=== PATIENT | male | born 1940 | race Caucasian/White ===

== ENCOUNTER 2017-09-23 10:18 | Outpatient (CLI) | payer MEDICARE, OTHER ==
--- NOTE | 2017-09-23 16:54 | Ultrasound Report ---
EXAM: NECK ULTRASOUND EXAM DATE: 09/23/2017 10:37 AM. CLINICAL HISTORY: Left cheek and left pre-and post-auricular neck swelling and pain. COMPARISON: None. TECHNIQUE: Real-time sonographic imaging was performed by the day spa manager utilizing color-flow. Multi ple apparel trimmings sales representative static images were saved for review. FINDINGS: Targeted evaluation of the areas of concern reveals no underlying sonographic abnormality. Specifically, no mass, focal fluid collection, or adenopathy. The left submandibular gland is in the imaged region, appears normal, and measures 2.9 x 0.8 x 2.6 cm. Comparison images of the right submandibular and postauricular regions are also unremarkable. IMPRESSION: No sonographic abnormality detected in the areas of indicating concern. [facility] Referring Provider Line: [phone] SITE ID: [id number]
== END 2017-09-23 10:19 | disposition home or self-care (01) ==
LOC: DI 10:18
PROVIDERS: ATTEND Physician Assistant Medical
DX: M54.2 Cervicalgia (principal); R60.0 Localized edema
CPT/HCPCS: 76536

== ENCOUNTER 2017-10-04 10:53 | Outpatient (CLI) | payer MEDICARE, OTHER ==
[2017-10-04 11:14] LABS: CREATININE 0.8 mg/dL (0.6-1.2)
[2017-10-04 11:17] LABS: BASOPHILS # (AUTO) 0.1 10^3/uL (0.0-0.1); BASOPHILS % (AUTO) 0.9 %; EOSINOPHILS # (AUTO) 0.2 10^3/uL (0.0-0.7); EOSINOPHILS % (AUTO) 2.1 %; HGB - HEMOGLOBIN 14.5 g/dL (14.0-18.0); LYMPHOCYTES # (AUTO) 1.7 10^3/uL (1.5-3.5); LYMPHOCYTES % (AUTO) 19.4 %; MEAN CORPUSCULAR HEMOGLOBIN 30.4 pg (27.0-31.0); MEAN CORPUSCULAR HGB CONC 33.6 g/dL (32.0-36.0); MEAN CORPUSCULAR VOLUME 90.6 fL (80.0-94.0); MEAN PLATELET VOLUME 7.7 fL (7.4-11.4); MONOCYTES # (AUTO) 0.5 10^3/uL (0.0-1.0); MONOCYTES % (AUTO) 5.9 %; NEUTROPHILS # (AUTO) 6.1 10^3/uL (1.5-6.6); NEUTROPHILS % (AUTO) 71.7 %; PLT - PLATELET COUNT 268 10^3/uL (130-450); RED BLOOD COUNT 4.77 10^6/uL (4.70-6.10); RED CELL DISTRIBUTION WIDTH 12.6 % (12.0-15.0); WHITE BLOOD COUNT 8.5 x10^3/uL (4.8-10.8)
[2017-10-04] MEDS ORDERED: IOPAMIDOL-300 100 ML VIAL ONE (11:19)
[2017-10-04] MEDS ORDERED: IOPAMIDOL-300 100 ML VIAL IVP ONE (12:03)
--- NOTE | 2017-10-04 12:29 | CT Report ---
CT FACIAL BONES WITH CONTRAST: 10/04/2017 CLINICAL INDICATION: Left jaw pain, history of dental abscess with recent root canal, history of squamous cell carcinoma. TECHNIQUE: Axial CT images of the face were obtained with 100 mL Isovue [address] is available for comparison. FINDINGS: The visualized orbital contents are unremarkable. There is minimal mucosal thickening in the left side of the sphenoid sinus. No air fluid levels are present. There is no evidence of abscess or adenopathy. No definite osteolysis is seen to suggest osteomyelitis, but dental hardware does produce some streak artifact. The nasopharynx, oropharynx, and hypopharynx appear unremarkable. IMPRESSION: NO EVIDENCE OF ABSCESS OR OSTEOMYELITIS. NO ADENOPATHY. In accordance with CT protocol optimization, one or more of the following dose reduction techniques were utilized for this exam: automated exposure control, adjustment of mA and/or KV based on patient size, or use of iterative reconstructive technique. TD: 10/04/2017 12:27
--- NOTE | 2017-10-04 12:32 | CT Report ---
CT OF NECK WITH CONTRAST: 10/04/2017 CLINICAL INDICATION: Left-sided pain, history of recent dental surgery with root canal, history of squamous cell carcinoma. TECHNIQUE: Axial CT images of the neck were obtained with 100 mL Isovue [address] is available for comparison. FINDINGS: The vascular structures enhance normally. The salivary glands and thyroid gland appear unremarkable. No cervical adenopathy is seen. No abscess is identified. The trachea is widely patent. Limited evaluation of the lung apices is unremarkable. Osseous structures demonstrate degenerative changes. IMPRESSION: NO EVIDENCE OF ABSCESS OR ADENOPATHY. In accordance with CT protocol optimization, one or more of the following dose reduction techniques were utilized for this exam: automated exposure control, adjustment of mA and/or KV based on patient size, or use of iterative reconstructive technique. TD: 10/04/2017 12:30
== END 2017-10-04 10:54 | disposition home or self-care (01) ==
LOC: DI 10:53
PROVIDERS: ATTEND Family Medicine
DX: R68.84 Jaw pain (principal); Z85.828 Personal history of other malignant neoplasm of skin; K04.7 Periapical abscess without sinus
CPT/HCPCS: 36415; 70487; 70491; 80048; 85025; Q9967

== ENCOUNTER 2017-11-30 09:09 | Outpatient (CLI) | payer MEDICARE, OTHER ==
--- NOTE | 2017-11-30 13:10 | XRAY Report ---
THREE VIEW RIGHT FOOT: 11/30/2017 CLINICAL INDICATION: Pain. FINDINGS: AP, lateral, oblique views of the right foot demonstrate no evidence of fracture or dislocation. Mild degenerative changes are seen at the first metatarsophalangeal joint. No radiopaque foreign body is seen in the soft tissues. IMPRESSION: MILD OSTEOARTHRITIS. TD: 11/30/2017 13:09
== END 2017-11-30 09:10 | disposition home or self-care (01) ==
LOC: DI 09:09
PROVIDERS: ATTEND Podiatrist
DX: M19.071 Primary osteoarthritis, right ankle and foot (principal)

== ENCOUNTER 2018-05-19 01:25 | Emergency (ER) | payer MEDICARE, OTHER ==
--- NOTE | 2018-05-19 01:43 | ED Physician Documentation ---
PD HPI CHEST PAIN - Stated complaint Stated Complaint: CHEST PAIN - Chief complaint Chief Complaint: Cardiac - History obtained from History obtained from: Patient - History of Present Illness Timing - onset: How many weeks ago (1) Timing - onset during: Rest, Light activity Timing - duration: Weeks (1) Timing - details: Gradual onset Pain level max: 4 Pain level now: 3 Quality: Pressure, Tightness Location: Substernal Radiation: Other (Nonradiating) Improved by: Nothing Worsened by: Exertion (Patient states that he feels short of breath after walk ing approximately 30 feet) Associated symptoms: Shortness of air. No: Diaphoresis, Nausea, Vomiting, Feeling faint / dizzy, General Weakness - Additional information Additional information: states had a cardiac stent many years ago Review of Systems Ten Systems: 10 systems reviewed and negative Constitutional: denies: Fever, Chills Ears: denies: Ear pain Nose: denies: Rhinorrhea / runny nose, Congestion Throat: denies: Sore throat Cardiac: reports: Chest pain / pressure. denies: Palpitations, Pedal edema, Calf pain GI: denies: Abdominal Pain, Nausea, Vomiting, Diarrhea : denies: Dysuria Skin: denies: Rash Musculoskeletal: denies: Neck pain, Back pain Neurologic: denies: Focal weakness, Numbness, Headache PD PAST MEDICAL HISTORY - Past Medical History Past Medical History: Yes Cardiovascular: [place] Respiratory: None Endocrine/Autoimmune: None GI: GERD, Diverticulitis : None HEENT: None Psych: None Musculoskeletal: Osteoarthritis Derm: None - Past Surgical History Past Surgical History: Yes General: Cholecystectomy, Bowel surgery Cardiovascular: Coronary stent - Present Medications Home Medications: Ambulatory Orders Medication Instructions Recorded Confirmed Aspirin Chewable [[place] 324 mg PO ONCE 11/23/13 11/23/13 Aspirin] Clopidogrel [Plavix] 75 mg PO DAILY 11/23/13 11/23/13 Metoprolol Tartrate [Lopressor] 25 mg PO BID 11/23/13 11/23/13 Pantoprazole Sodium [Protonix] 40 mg PO 11/23/13 11/23/13 Pentazocine Lactate [Talwin] 50 mg PO 11/23/13 11/23/13 - Allergies Allergies/Adverse Reactions: Allergies Allergy/AdvReac Type Severity Reaction Status Date / Time amoxicillin trihydrate * Allergy Nausea Verified 05/19/18 01:43 [From Augmentin] potassium clavulanate * Allergy Nausea Verified 05/19/18 01:43 [From Augmentin] - Social History Does the pt smoke?: Yes Smoking Status: Current every day smoker Does the pt drink ETOH?: Yes Does the pt have substance abuse?: No - Immunizations Immunizations are current?: No Immunizations: TDAP >10years/unknown - POLST Patient has POLST: No PD ED PE NORMAL - Vitals Vital signs reviewed: Yes - General General: Alert and oriented X 3, No acute distress, Well developed/nourished - HEENT HEENT: PERRL, Moist mucous membranes - Neck Neck: Supple, no meningeal sign - Cardiac Cardiac: RRR, Strong equal pulses - Respiratory Respiratory: No respiratory distress, Clear bilaterally - Abdomen Abdomen: Soft, Non tender, Non distended - Back Back: No spinal TTP - Derm Derm: Warm and dry - Extremities Extremities: No edema, No calf tenderness / cord - Neuro Neuro: Alert and oriented X 3 - Psych Psych: Normal mood, Normal affect Results - Vitals Vitals: Vital Signs - 24 hr 05/19/18 05/19/18 05/19/18 01:25 01:41 02:23 Temperature 36.1 C L Heart Rate 116 H 110 H 114 H Respiratory 13 14 14 Rate Blood Pressure 165/90 H 159/98 H 120/98 H O2 Saturation 98 97 93 05/19/18 05/19/18 05/19/18 02:27 03:14 03:43 Temperature 36.0 C L Heart Rate 113 H 98 90 Respiratory 13 12 12 Rate Blood Pressure 95/66 110/77 115/75 O2 Saturation 95 97 97 05/19/18 05/19/18 04:53 05:30 Temperature Heart Rate 86 86 Respiratory 14 12 Rate Blood Pressure 163/83 H O2 Saturation 99 98 Oxygen O2 Source Room air Oxygen Flow Rate 2 - EKG (time done) 0127 Rate: Rate (enter#) (112) Rhythm: Sinus tachycardia [place]: Normal Intervals: Normal [place] QRS: Normal Ischemia: Normal ST segments, Q waves (II, III, aVF) - Labs Labs: Laboratory Tests 05/19/18 05/19/18 05/19/18 01:35 01:35 01:35 WBC 5.8 RBC 4.57 L Hgb 14.4 Hct 41.6 L MCV 91.0 MCH 31.4 H MCHC 34.5 RDW 12.5 Plt Count 230 MPV 8.5 Neut # (Auto) 4.0 Lymph # (Auto) 1.1 L [place] # (Auto) 0.5 Eos # (Auto) 0.1 Baso # (Auto) 0.1 Absolute Nucleated RBC 0.00 Nucleated RBC % 0.0 Sodium 127 L Potassium 3.6 Chloride 90 L Carbon Dioxide 22 Anion Gap 15.0 H BUN 15 Creatinine 0.8 Estimated GFR (MDRD) 94 Glucose 295 H Calcium 8.4 L Total Bilirubin 6.3 H AST 61 H ALT 71 H Alkaline Phosphatase 194 H Troponin I < 0.04 B-Natriuretic Peptide Total Protein 7.3 Albumin 3.4 Globulin 3.9 Albumin/Globulin Ratio 0.9 L Lipase 17 L 05/19/18 05/19/18 01:35 04:54 WBC RBC Hgb Hct MCV MCH MCHC RDW Plt Count MPV Neut # (Auto) Lymph # (Auto) [place] # (Auto) Eos # (Auto) Baso # (Auto) Absolute Nucleated RBC Nucleated RBC % Sodium Potassium Chloride Carbon Dioxide Anion Gap BUN Creatinine Estimated GFR (MDRD) Glucose Calcium Total Bilirubin AST ALT Alkaline Phosphatase Troponin I < 0.04 B-Natriuretic Peptide 35 Total Protein Albumin Globulin Albumin/Globulin Ratio Lipase - Rads (name of study) cxr Radiology: Prelim report reviewed, EMP read contemporaneously, See rad report (No acute abnormality seen in the chest.) CT abd/pelvis Radiology: Prelim report reviewed, EMP read contemporaneously, See rad report (Postoperative changes of cholecystectomy. Small periumbilical hernia, containing fat. Diverticulosis, without CT evidence of diverticulitis. ) PD MEDICAL DECISION MAKING - ED course Complexity details: reviewed results, re-evaluated patient, considered differential, d/w patient ED course: Patient is a 78-year-old male who presents to the emergency department with atypical chest pain over the past week. Possible stable angina. Is not occurring at rest. Although he does state at times is been fairly consistent over the past week. Negative troponin x2. No acute EKG findings. Recommend that he follow-up closely with his doctor for a cardiac stress test and avoid any strenuous activity until that time. No evidence of pulmonary embolus clinically. No evidence of heart failure. No pulmonary edema. He also has chronic hyponatremia and has a slight elevation in his liver function tests as well as his bilirubin. IV fluids were given. We will have him follow-up with his doctor for further evaluation. Patient does state that he stopped drinking alcohol 2 years ago. Patient counseled regarding signs and symptoms for which I believe and urgent re-evaluation would be necessary. Patient with good understanding of and agreement to plan and is comfortable going home at this time This document was made in part using voice recognition software. While efforts are made to proofread this document, sound alike and grammatical errors may occur. - Sepsis Event Vital Signs: Vital Signs - 24 hr 05/19/18 05/19/18 05/19/18 01:25 01:41 02:23 Temperature 36.1 C L Heart Rate 116 H 110 H 114 H Respiratory 13 14 14 Rate Blood Pressure 165/90 H 159/98 H 120/98 H O2 Saturation 98 97 93 05/19/18 05/19/18 05/19/18 02:27 03:14 03:43 Temperature 36.0 C L Heart Rate 113 H 98 90 Respiratory 13 12 12 Rate Blood Pressure 95/66 110/77 115/75 O2 Saturation 95 97 97 05/19/18 05/19/18 04:53 05:30 Temperature Heart Rate 86 86 Respiratory 14 12 Rate Blood Pressure 163/83 H O2 Saturation 99 98 Oxygen O2 Source Room air Oxygen Flow Rate 2 Departure - Departure Disposition: 01 Home, Self Care Clinical Impression: Chest pain Qualifiers: Chest pain type: unspecified Qualified Code(s): R07.9 - Chest pain, unspecified Condition: Good Instructions: ED Chest Pain Atypical Unkn Cause Follow-Up: Enmanuel Ventura DO [Provider Admit Priv/Credential] - Within 3 Days Comments: The cause of your symptoms is unclear today, but I do think that you need a cardiac stress test. We discussed staying in the hospital for this, but you are comfortable going home at this time and following up closely on Monday or Monday to have this scheduled urgently with your doctor. You are to avoid any strenuous activity until that time. Return if your symptoms worsen. Make sure to continue your current medications. You also have a slight elevation of your bilirubin and liver function tests, these should be repeated with your doctor next week to ensure that they are improving. Your sodium levels are also slightly low which is chronic for you but they are slightly lower than usual today. Please follow-up with your doctor for further care.
[2018-05-19 01:51] LABS: BASOPHILS # (AUTO) 0.1 10^3/uL (0.0-0.1); BASOPHILS % (AUTO) 1.5 %; EOSINOPHILS # (AUTO) 0.1 10^3/uL (0.0-0.7); EOSINOPHILS % (AUTO) 1.4 %; HGB - HEMOGLOBIN 14.4 g/dL (14.0-18.0); LYMPHOCYTES # (AUTO) 1.1 10^3/uL (1.5-3.5); LYMPHOCYTES % (AUTO) 19.4 %; MEAN CORPUSCULAR HEMOGLOBIN 31.4 pg (27.0-31.0); MEAN CORPUSCULAR HGB CONC 34.5 g/dL (32.0-36.0); MEAN PLATELET VOLUME 8.5 fL (7.4-11.4); MONOCYTES # (AUTO) 0.5 10^3/uL (0.0-1.0); MONOCYTES % (AUTO) 8.9 %; NEUTROPHILS % (AUTO) 68.8 %; PLT - PLATELET COUNT 230 10^3/uL (130-450); RED BLOOD COUNT 4.57 10^6/uL (4.70-6.10); RED CELL DISTRIBUTION WIDTH 12.5 % (12.0-15.0); WHITE BLOOD COUNT 5.8 x10^3/uL (4.8-10.8)
[2018-05-19 02:10] LABS: ALBUMIN 3.4 g/dL (3.2-5.5); ALBUMIN/GLOBULIN RATIO 0.9 (1.0-2.2); BILIRUBIN,TOTAL 6.3 mg/dL (0.2-1.0); CALCIUM 8.4 mg/dL (8.5-10.3); CREATININE 0.8 mg/dL (0.6-1.2); TOTAL PROTEIN 7.3 g/dL (6.7-8.2)
[2018-05-19] MEDS ORDERED: ASPIRIN CHEW 81 MG TABLET PO STA (02:11)
[2018-05-19] MEDS ORDERED: NITROGLYCERIN SL 0.4 MG TABLET SL STA (02:11)
--- NOTE | 2018-05-19 02:11 | XRAY Report ---
Reason: chest pain Procedure Date: 05/19/2018 Accession Number: [id number] / [id number] Procedure: XR - Chest 1 View X-Ray CPT Code: 40958 FULL RESULT: EXAM: CHEST RADIOGRAPHY EXAM DATE: 05/19/2018 01:46 AM. CLINICAL HISTORY: Chest pain. COMPARISON: 11/23/2013 12:17 PM. TECHNIQUE: 1 view. FINDINGS: Lungs/Pleura: No alveolar consolidation or pleural effusion seen. No pneumothorax. Mediastinum: Within exam limitations, the cardiomediastinal contour is normal. Other: Degenerative changes in the shoulders, right worse than left. IMPRESSION: 1. No acute abnormality seen in the chest. [facility]
[2018-05-19] MEDS ORDERED: SODIUM CHLORIDE 0.9% 1,000 ML IV ONE ×2 (02:59)
[2018-05-19] MEDS ORDERED: IOPAMIDOL-300 100 ML VIAL ONE (04:12)
[2018-05-19] MEDS ORDERED: IOPAMIDOL-300 100 ML VIAL IVP ONE (05:14)
--- NOTE | 2018-05-19 05:31 | CT Report ---
Reason: epigastric, RUQ abd pain Procedure Date: 05/19/2018 Accession Number: [id number] / [id number] Procedure: CT - Abdomen/Pelvis W/ CPT Code: FULL RESULT: EXAM: CT ABDOMEN AND PELVIS EXAM DATE: 05/19/2018 05:09 AM. CLINICAL HISTORY: Epigastric, RUQ abd pain. COMPARISONS: None. TECHNIQUE: Routine helical CT imaging was performed through the abdomen and pelvis. IV contrast: 100 ML ISOVUE 300. Enteric contrast: No. Reconstructions: Coronal and sagittal. In accordance with CT protocol optimization, one or more of the following dose reduction techniques were utilized for this exam: automated exposure control, adjustment of mA and/or KV based on patient size, or use of iterative reconstructive technique. FINDINGS: Lung Bases: Unremarkable. Liver: Normal. No masses. Gallbladder/Bile Ducts: Changes of cholecystectomy. No biliary dilatation. Spleen: Normal. Pancreas: Normal. Adrenal Glands: Normal. Kidneys: Cortical cysts. No hydronephrosis or nephrolithiasis. Peritoneal Cavity/Bowel: Normal. No free fluid, free air or adenopathy. No masses or acute inflammatory process. Colonic diverticulosis, without CT evidence of diverticulitis. Pelvic Organs: Normal. The bladder and visualized pelvic organs are within normal limits. Vasculature: No aneurysms or other significant abnormality. Bones: No significant abnormality. Other: Small periumbilical hernia, containing fat, without evidence of bowel herniation. IMPRESSION: Postoperative changes of cholecystectomy. Small periumbilical hernia, containing fat. Diverticulosis, without CT evidence of diverticulitis. [facility]
[2018-05-19 05:55] VITALS: BP 144/87
== END 2018-05-19 05:56 | disposition home or self-care (01) ==
LOC: ED 01:25
DX: R07.9 Chest pain, unspecified (principal); I25.2 Old myocardial infarction; R00.0 Tachycardia, unspecified; E87.1 Hypo-osmolality and hyponatremia; F17.200 Nicotine dependence, unspecified, uncomplicated; Z95.5 Presence of coronary angioplasty implant and graft; Z79.82 Long term (current) use of aspirin
CPT/HCPCS: 36415; 71045; 74177; 80053; 83690; 83880; 84484; 85025; 93005; 96360; 96361; 99284; 99285; A9270; Q9967

== ENCOUNTER 2018-06-03 15:53 | Outpatient (CLI) | payer MEDICARE, OTHER | END 2018-06-03 15:54 | disposition critical access hospital (66) | LOC: EMS 15:53 | PROVIDERS: ATTEND Surgery | DX: R53.1 Weakness (principal); R10.30 Lower abdominal pain, unspecified; R39.9 Unspecified symptoms and signs involving the genitourinary system | CPT/HCPCS: A0425; A0429 ==

== ENCOUNTER 2018-06-03 15:57 | Observation (INO) | payer MEDICARE, OTHER ==
[2018-06-03] MEDS ORDERED: SODIUM CHLORIDE 0.9% 1,000 ML IV ONE ×3 (16:14→20:26)
--- NOTE | 2018-06-03 16:17 | ED Physician Documentation ---
History of Present Illness - Stated complaint Stated Complaint: ABD PX - Chief complaint Chief Complaint: General - Additonal information Additional information: hx from pt 78 male hx BPH seen about 2 weeks ago and dx ACS referred to PMD for stress test etc pt states followed up PMD and dx urinary problems and DM and started on flomax and metformin which he has taken today he had 6 hr of severe lower abd pain and then was too weak to get up from his chair no fall or injury denies AH CP AP upon arrival rigors at home no fever no cough soa no NVD no bloody black BM cant remember when if he last urinated but thinks maybe today arrives hypotensive note pt is documented as having chrionic kidney dz but chart review shows he has never had a creat > 1 at [facility] Review of Systems Constitutional: reports: Chills, Fatigue. denies: Fever Throat: denies: Sore throat Cardiac: denies: Chest pain / pressure Respiratory: denies: Dyspnea GI: denies: Abdominal Pain, Nausea, Vomiting : reports: Other (diif urinating) Musculoskeletal: denies: Back pain Neurologic: reports: Generalized weakness Endocrine: denies: Easy bruising / bleeding Immunocompromised: denies: Immunocompromised PD PAST MEDICAL HISTORY - Past Medical History Cardiovascular: [place] Respiratory: None Endocrine/Autoimmune: None GI: GERD, Diverticulitis : None HEENT: None Psych: None Musculoskeletal: Osteoarthritis Derm: None - Past Surgical History Past Surgical History: Yes General: Cholecystectomy, Bowel surgery Cardiovascular: Coronary stent - Present Medications Home Medications: Ambulatory Orders Medication Instructions Recorded Confirmed Aspirin Chewable [[place] 324 mg PO ONCE 11/23/13 11/23/13 Aspirin] Clopidogrel [Plavix] 75 mg PO DAILY 11/23/13 11/23/13 Metoprolol Tartrate [Lopressor] 25 mg PO BID 11/23/13 11/23/13 Pantoprazole Sodium [Protonix] 40 mg PO 11/23/13 11/23/13 Pentazocine Lactate [Talwin] 50 mg PO 11/23/13 11/23/13 - Allergies Allergies/Adverse Reactions: Allergies Allergy/AdvReac Type Severity Reaction Status Date / Time amoxicillin trihydrate * Allergy Nausea Verified 05/19/18 01:43 [From Augmentin] potassium clavulanate * Allergy Nausea Verified 05/19/18 01:43 [From Augmentin] - Social History Does the pt smoke?: Yes Smoking Status: Current every day smoker Does the pt drink ETOH?: Yes Does the pt have substance abuse?: No - Immunizations Immunizations are current?: No Immunizations: TDAP >10years/unknown - POLST Patient has POLST: No PD ED PE NORMAL - Vitals Vital signs reviewed: Yes - General General: Alert and oriented X 3 - HEENT HEENT: PERRL - Neck Neck: Supple, no meningeal sign - Cardiac Cardiac: RRR - Respiratory Respiratory: No respiratory distress, Clear bilaterally - Abdomen Abdomen: Soft, Non tender, Other (no pulsatile mass reducible umbilical hernia, no inguinl hernia) - Derm Derm: Other (, small scabs to shoulder yahir - long standing perptm cause unknown denies IVDA) - Neuro Neuro: Alert and oriented X 3 Eye Opening: Spontaneous Motor: Obeys Commands Verbal: Oriented GCS Score: 15 Results - Vitals Vitals: Vital Signs - 24 hr 06/03/18 16:00 Temperature 37.6 C H Heart Rate 117 H Respiratory 18 Rate Blood Pressure 90/62 O2 Saturation 92 Oxygen O2 Source Room air - EKG (time done) 1610 Rate: Rate (enter#) (110) Rhythm: Sinus tachycardia Ischemia: Q waves (inferior), Other (poor R wave compression, barely visible in fact) - Rads (name of study) CXR Radiology: See rad report (NACPD) CT AP Radiology: See rad report (no acute process) PD MEDICAL DECISION MAKING - ED course ED course: hypotensive tachycardic temp 37.6 rigors - and abd pain all day - meets sepsis criteria gave 3 L IVF and sepsis ab surprisingly UA came back neg LFTs elev but better than last week - denies EtOh and apap added on CXR and CT AP - had a week ago s acute process but had abd pain X many hr today and now with sepsis criteria both neg no CP, does not feel SOA today (though chronic dyspnea on exertion), no cough, no leg swelling, so doubt PE - but is hypoxic and GFR is actually fine and no other cause found on sepssi wup so back to CT for angip but tachy hypotensive and a little hypoxic with low grade fever - will need admit to continue to try and identify the source of his sx - may echo etc, wait on blood cx doing better after IVF and ab as above called hospitalist at 1830 defer to shift mechanic spoke to night hospitalist Dr Em at 8 PM - he will admit to obs and fup on CTA chest Departure - Departure Disposition: ED Place in Observation Clinical Impression: Hypoxia, Tachycardia, Weakness, Dehydration, Abnormal liver function Hypotension Qualifiers: Hypotension type: unspecified hypotension type Qualified Code(s): I95.9 - Hypotension, unspecified Abdominal pain Qualifiers: Abdominal location: lower abdomen, unspecified Qualified Code(s): R10.30 - Lower abdominal pain, unspecified Condition: Fair
[2018-06-03 16:32] LABS: BASOPHILS % (AUTO) 0.1 %; EOSINOPHILS % (AUTO) 0.1 %; HGB - HEMOGLOBIN 13.5 g/dL (14.0-18.0); LYMPHOCYTES # (AUTO) 0.2 10^3/uL (1.5-3.5); LYMPHOCYTES % (AUTO) 1.9 %; MEAN CORPUSCULAR HGB CONC 33.4 g/dL (32.0-36.0); MEAN CORPUSCULAR VOLUME 92.6 fL (80.0-94.0); MEAN PLATELET VOLUME 8.1 fL (7.4-11.4); MONOCYTES # (AUTO) 0.5 10^3/uL (0.0-1.0); MONOCYTES % (AUTO) 4.2 %; NEUTROPHILS # (AUTO) 10.7 10^3/uL (1.5-6.6); NEUTROPHILS % (AUTO) 93.7 %; PLT - PLATELET COUNT 228 10^3/uL (130-450); RED BLOOD COUNT 4.36 10^6/uL (4.70-6.10); RED CELL DISTRIBUTION WIDTH 12.7 % (12.0-15.0); WHITE BLOOD COUNT 11.4 x10^3/uL (4.8-10.8)
[2018-06-03] MEDS ORDERED: VANCOMYCIN INJ 1 GM in SODIUM CHLORIDE 0.9% 250 ML IV STA (16:32)
[2018-06-03] MEDS ORDERED: CEFEPIME 2 GM in SODIUM CHLORIDE 0.9% MINIBAG 100 ML IV STA (16:32)
[2018-06-03 16:46] LABS: ALBUMIN 3.3 g/dL (3.2-5.5); ALBUMIN/GLOBULIN RATIO 0.9 (1.0-2.2); BILIRUBIN,TOTAL 5.1 mg/dL (0.2-1.0); CALCIUM 8.1 mg/dL (8.5-10.3); CREATININE 0.8 mg/dL (0.6-1.2); TOTAL PROTEIN 6.9 g/dL (6.7-8.2)
[2018-06-03 16:59] LABS: GLUCOSE, URINE (UA) 500 mg/dL (NEGATIVE); KETONES,URINE (UA) TRACE mg/dL (NEGATIVE); LEUKOCYTE ESTERASE, URINE NEGATIVE (NEGATIVE); NITRITE,URINE NEGATIVE (NEGATIVE); OCCULT BLOOD,URINE NEGATIVE (NEGATIVE); PROTEIN,URINE NEGATIVE (NEGATIVE); UROBILINOGEN,URINE 4 E.U./dL (NORMAL)
[2018-06-03 17:02] LABS: BILIRUBIN,URINE MODERATE (NEGATIVE); ICTOTEST,URINE POSITIVE
[2018-06-03 17:03] LABS: CLARITY,URINE CLEAR (CLEAR)
[2018-06-03] MEDS ORDERED: SODIUM CHLORIDE 0.9% 2,000 ML IV ONE (17:07)
[2018-06-03] MEDS ORDERED: metroNIDAZOLE 500 MG/100 ML 500 MG/100 ML BAG IV ONE (17:07)
--- NOTE | 2018-06-03 18:04 | XRAY Report ---
Reason: hypotension Procedure Date: 06/03/2018 Accession Number: [id number] / [id number] Procedure: XR - Chest 2 View X-Ray CPT Code: 26855 FULL RESULT: EXAM: CHEST RADIOGRAPHY EXAM DATE: 06/03/2018 05:47 PM. CLINICAL HISTORY: Hypotension. COMPARISON: CHEST 1 VIEW 05/19/2018 1:46 AM. TECHNIQUE: 2 views. FINDINGS: Lungs/Pleura: No focal opacities evident. No pleural effusion. No pneumothorax. Normal volumes. Mediastinum: Heart and mediastinal contours are unremarkable. Other: There is disk osteophyte disease of the thoracic spine. IMPRESSION: Negative for an acute cardiopulmonary abnormality. [facility]
--- NOTE | 2018-06-03 18:17 | CT Report ---
Reason: hypotension abd pain Procedure Date: 06/03/2018 Accession Number: [id number] / [id number] Procedure: CT - Abdomen/Pelvis W/O CPT Code: FULL RESULT: EXAM: CT ABDOMEN AND PELVIS WITHOUT CONTRAST. EXAM DATE: 06/03/2018 05:33 PM. CLINICAL HISTORY: Hypotension, abdominal pain. COMPARISONS: Abdomen and pelvis without 06/03/2018 5:23 PM. TECHNIQUE: Routine helical CT imaging was performed through the abdomen and pelvis. IV contrast: No. Enteric contrast: No. Reconstructions: Coronal and sagittal. In accordance with CT protocol optimization, one or more of the following dose reduction techniques were utilized for this exam: automated exposure control, adjustment of mA and/or KV based on patient size, or use of iterative reconstructive technique. FINDINGS: Lung Bases: Unremarkable. Liver: Noncontrast appearance of the liver is unremarkable. Gallbladder/Bile Ducts: The gallbladder has been removed. No bile duct dilatation. Spleen: Normal. Pancreas: Normal. Adrenal Glands: Normal. Kidneys: No urinary tract stones or obstruction. Peritoneal Cavity/Bowel: Normal. No free fluid, free air or adenopathy. No masses or acute inflammatory process. The appendix is well visualized and normal. Pelvic Organs: Normal. The bladder and visualized pelvic organs are within normal limits. Vasculature: No aneurysms or other significant abnormality. Bones: No significant abnormality. Other: There is a 1.9 cm fat-containing umbilical hernia as well as an adjacent 1 cm left periumbilical hernia. No herniated bowel loops. IMPRESSION: 1. No bowel obstruction, fluid collection or acute inflammatory process. 2. Small fat-containing umbilical and left periumbilical hernias. 3. The gallbladder has been removed. [facility]
[2018-06-03] MEDS ORDERED: IOPAMIDOL-300 100 ML VIAL ONE (18:55)
[2018-06-03] MEDS ORDERED: IOPAMIDOL-300 100 ML VIAL IVP ONE (20:10)
[2018-06-03] MEDS ORDERED: ZOLPIDEM 5 MG TABLET PO PRN (20:15)
[2018-06-03] MEDS ORDERED: MORPHINE 2 MG/ML CARPUJECT IVP PRN (20:15)
[2018-06-03] MEDS ORDERED: ONDANSETRON 4 MG/2 ML VIAL IVP PRN (20:15)
[2018-06-03] MEDS ORDERED: PROMETHAZINE 25 MG/1 ML VIAL IM PRN (20:15)
[2018-06-03] MEDS ORDERED: oxyCODONE 5 MG TABLET PO PRN ×2 (20:15)
[2018-06-03] MEDS ORDERED: ACETAMINOPHEN 325 MG TABLET PO PRN (20:15)
[2018-06-03] MEDS ORDERED: PROCHLORPERAZINE 10 MG/2 ML VIAL IVP PRN (20:15)
[2018-06-03] MEDS ORDERED: SODIUM CHLORIDE FLUSH 0.9% 10 ML SYRINGE IVP PRN (20:15)
--- NOTE | 2018-06-03 20:57 | CT Report ---
Reason: tachy hypoxic soa Procedure Date: 06/03/2018 Accession Number: [id number] / [id number] Procedure: CT - Chest Angio (PE) CPT Code: FULL RESULT: EXAM: CT ANGIOGRAM CHEST EXAM DATE: 06/03/2018 08:27 PM. CLINICAL HISTORY: Tachy hypoxic soa. COMPARISON: None. TECHNIQUE: Routine helical imaging was performed through the chest in the pulmonary arterial phase. IV Contrast: ISOVUE 300 80mL. Reconstructions: Coronal 3-D MIP reconstructions.Sagittal and coronal. In accordance with CT protocol optimization, one or more of the following dose reduction techniques were utilized for this exam: automated exposure control, adjustment of mA and/or KV based on patient size, or use of iterative reconstructive technique. FINDINGS: Pulmonary Arteries: Diagnostic quality: Adequate through the segmental arteries. Negative for acute pulmonary embolism. Main pulmonary artery is normal in size. Lungs/Pleura: There are fine basilar reticular opacities. There is peripheral airway thickening with airway secretions. There is no consolidation or mass. There are mild left pleural calcifications. No pleural effusion. Mediastinum: The heart size is normal. There is no pericardial effusion. No mediastinal or hilar lymphadenopathy. Thoracic Aorta: No aneurysm or dissection of the thoracic aorta. Upper Abdomen: Unremarkable. Other: None. IMPRESSION: 1. Negative for acute pulmonary embolism. 2. Peripheral basilar pulmonary scarring 3. 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 4. No acute pneumonia. 5. Lower lobe airway inflammation with airway secretions. [facility]
[2018-06-03] MEDS ORDERED: SODIUM CHLORIDE 0.9% 1,000 ML IV SCH (21:00)
[2018-06-03] MEDS ORDERED: ASPIRIN CHEW 81 MG TABLET PO SCH (21:00)
[2018-06-03] MEDS: INSULIN ASPART 300 UNIT/3 ML PEN SUBQ SCH (22:21)
--- NOTE | 2018-06-03 22:45 | HISTORY & PHYSICAL EXAMINATION ---
Chief Complaint - Chief Complaint Chief Complaint: Generalized weakness History of Present Illness - Admitted From Admitted From:: Emergency department - History Obtained From Records Reviewed: Yes History obtained from: Patient Exam Limitations: None - History of Present Illness HPI Comment/Other: Patient is a 78-year-old gentleman with a past medical history significant for coronary artery disease status post 2 stents 5-6 years ago, diabetes diagnosed 2 weeks ago, osteoarthritis of his neck and BPH who presented to the emergency department with a chief complaint of generalized weakness. The patient states that he has been having generalized weakness and fatigue ongoing for the past 2 months. He thinks that his symptoms first started after he ate at the [employer] 2 months ago. He states that he had a hamburger and right after that he began having vomiting and diarrhea which lasted for about a day. He states that although he recovered from the diarrhea and the vomiting after that day he had continued fatigue and just has not felt the same since. He also states that he went back to the restaurant 1 month ago and had an abnormal it after which he also became ill and vomited. He states over the past month he has just been gradually getting weaker and weaker. During the same time he states that he is also noticed that he has been having increasing shortness of breath with exertion. He also had an episode of chest pain with exertion a couple of weeks ago for which he came to the emergency department but had a negative workup and was told to follow-up with his primary care physician. He states that he did follow-up with his primary care physician and was started on Flomax for urinary retention as well as metformin for newly diagnosed diabetes. The patient states that his symptoms seem to come in waves where he has a few days where he feels extremely fatigued and has generalized weakness and then will have a few days where he feels better but then will again have these attacks where he begins to feel really weak and fatigued. He states that today the symptoms got so bad that he had to come to the emergency department. He states that he was sitting in a chair and when he tried to get up he states he was so weak he could not get up. He states that he tried about 5 or 6 times and kept falling back into the chair. He became very concerned is that he is never been this week and he called 911. The patient also states that he has noticed that over the last few months his urine has been a brownish color. The patient does state that he has had a decreased appetite over the last month. He also states that he has been having burning when he urinates. The patient does admit to being a heavy drinker in the past but quit drinking 2 years ago. The patient denies having guerrero d any fevers or chills. He denies having had any new cough and states his shortness of breath has not really changed over the last month but it has been constant. He states that he did have some abdominal pain earlier today but that has now completely resolved. He states the pain was in the lower part of his abdomen and lasted for about 6 hours but then resolved on its own and has not returned. The patient denies any nausea or vomiting. He denies any diarrhea. The patient denies any skin rashes or lesions. Patient denies any headache, blurred vision, runny nose, sore throat, nasal congestion, chest pain, orthopnea, PND, increased lower extremity swelling, joint swelling, muscle aches, back pain, hair loss, recent unintentional weight loss, night sweats, polyuria, polydipsia or any focal neurologic deficits. On presentation to the emergency department the patient had a low-grade fever of 37.6, he was tachycardic with a heart rate of 117 and blood pressure was borderline low at 90/62 with a normal respiratory rate and an oxygen saturation of 92% on room air. The patient states that his blood pressure usually runs on the lower side. The patient underwent routine lab work which revealed a mild leukocytosis of 11.4, mild hyponatremia of 132, elevated glucose of 338, an elevated bilirubin of 5.1 which is slightly down from 6.3 just 2 weeks ago, and elevated alk phos and AST. The patient's lactic acid was initially 1.8 but when rechecked 4 hours later it was elevated to 2.6. The patient's urine analysis showed moderate bilirubin and glucose but was otherwise negative for infection. Patient's influenza swab was negative and infectious mono assay was negative. The patient's troponin was negative. The patient's TSH was within normal limits. The patient also underwent extensive imaging including a chest x-ray which showed no acute cardiopulmonary abnormality. He had a CT of his abdomen and pelvis which showed a normal liver, pancreas and no acute inflammatory process. The patient's gallbladder has been removed. The patient also underwent a CT angiogram of his lungs which showed no evidence of acute pulmonary embolism and no acute pneumonia. In the emergency department the patient was given several liters of IV fluid and broad-spectrum antibiotics with vancomycin Flagyl and cefepime as the emergency room physician was concerned for possible sepsis of unknown source. The patient was placed in observation for further monitoring as he continued to have generalized weakness and it was not clear as to what the source was other than the patient having hepatitis. Given that the patient did not have any more fevers and white blood cell count was only mildly elevated it was decided not to continue the antibiotics on admission. History - Past Medical History Cardiovascular: reports: Coronary artery disease, [place] Respiratory: reports: None Neuro: reports: None Endocrine/Autoimmune: reports: Type 2 diabetes GI: reports: GERD, Diverticulitis : reports: Benign prostate hypertrophy HEENT: reports: None Psych: reports: None Musculoskeletal: reports: Osteoarthritis Derm: reports: None MRSA Hx?: No - Past Surgical History General: reports: Cholecystectomy, Bowel surgery Cardiovascular: reports: Coronary stent - Family & Social History Family History: Mother: , Father: , Brother: Family History Comment/Other: The patient states there is no family history of diabetes, coronary artery disease, hypertension or cancer. He states both of his parents of old age. Living arrangement: At home Living Situation: Alone Social History Notes: The patient lives alone in [place], [place]. He has 2 daughters who live in [place], [place]. The patient states he used to live in [place], [place] but moved would be [place] in 2006 after his in 2005. He states he was to his for 43 years. He states that he used to work in [employer] but has retired. The patient states that he used to be a heavy drinker and would drink 2-1/2 gallons of vodka in a week. He states that he cut back on his vodka consumption a number of years ago but was still drinking beer up until about 2 years ago when he completely stopped drinking all alcohol. The patient states that he quit smoking in 1973 but did smoke for just over 10 years. He states he used to smoke up to 4 packs a day. He states that he tried marijuana once but did not like the effects of it and does not use any illicit drugs. - POLST Patient has POLST: No POLST Status: Full Code Meds/Allgy - Home Medications Home Medications: Ambulatory Orders Medication Instructions Recorded Confirmed Aspirin Chewable [[place] 324 mg PO ONCE 11/23/13 11/23/13 Aspirin] Clopidogrel [Plavix] 75 mg PO DAILY 11/23/13 11/23/13 Metoprolol Tartrate [Lopressor] 25 mg PO BID 11/23/13 11/23/13 Pantoprazole Sodium [Protonix] 40 mg PO 11/23/13 11/23/13 Pentazocine Lactate [[place]] 50 mg PO 11/23/13 11/23/13 - Allergies Allergies/Adverse Reactions: Allergies Allergy/AdvReac Type Severity Reaction Status Date / Time amoxicillin trihydrate * Allergy Nausea Verified 05/19/18 01:43 [From Augmentin] potassium clavulanate * Allergy Nausea Verified 05/19/18 01:43 [From Augmentin] Review of Systems - Other Findings Other Findings: A comprehensive review of systems was performed the pertinent positives and negatives are stated above in the HPI and the remainder of the review of systems is negative. Prior Level of Functionality: Patient is completely independent at home and does not use any ambulatory devices to ambulate. He did however present with generalized weakness and was unable to get up off of a chair. Exam - Vital Signs Reviewed Vital Signs: Yes Vital Signs: Vital Signs x48h Temp Pulse Pulse Resp BP BP Pulse Ox 06/03/18 21:46 36.8 C 89 16 134/64 H 98 06/03/18 20:57 90 19 115/59 L 97 06/03/18 20:00 86 14 108/53 L 96 06/03/18 19:35 93 19 89/53 L 93 06/03/18 19:00 91 17 107/54 L 93 06/03/18 17:02 99 14 99/59 L 95 06/03/18 16:52 99 19 114/57 L 95 06/03/18 16:28 116 H 14 97/56 L 95 06/03/18 16:00 37.6 C H 117 H 18 90/62 92 - Physical Exam General Appearance: positive: No acute distress, Alert, Other (Jaundiced appearing) Eyes Bilateral: positive: Normal inspection, PERRL, EOMI, No lid inflammation, Conjunctivae nml, Other (Scleral icterus) ENT: positive: ENT inspection nml, Pharynx nml, Dry mucous membranes. negative: Purulent nasal drainage, Pharyngeal erythema, Oral lesions Neck: positive: Nml inspection, Thyroid nml, No JVD, Trachea midline. negative: Thyromegaly, Lymphadenopathy (R), Lymphadenopathy (L), Stiff neck, Carotid bruit, Swelling/bruising, Tracheal deviation Respiratory: positive: Chest non-tender, No respiratory distress, Breath sounds nml. negative: Wheezes, Rales, Rhonchi Cardiovascular: positive: Regular rate & rhythm, No murmur, No gallop Peripheral Pulses: positive: 2+ Abdomen: positive: Non-tender, No organomegaly, Nml bowel sounds, No distention. negative: Guarding, Rebound, Hepatomegaly Back: positive: Nml inspection. negative: CVA tenderness (R), CVA tenderness (L) Skin: positive: No rash, Warm, Dry, Other (Jaundiced). negative: Cyanosis, Diaphoresis, Pallor Extremities: positive: Non-tender, Full ROM, Nml appearance, No pedal edema Neurologic/Psychiatric: positive: Oriented x3, CN's nml (2-12), Motor nml, Sen sation nml, Mood/affect nml Conclusion/Plan - Problem List (1) Generalized weakness Conclusion/Plan: Patient presented with generalized weakness as he was unable to stand up from a seated position despite multiple efforts. Patient symptoms have been ongoing for the last 2 months but have become progressively worse over that time. On presentation to the ER the patient had a low-grade fever, tachycardia and mild leukocytosis. The patient was also borderline hypotensive. All of this appeared to improve with the patient getting IV fluids. The patient was also found to have an elevated bilirubin and elevated AST and alk phos. These values were also elevated when the patient was seen 2 weeks ago. Patient has been recently diagnosed with diabetes. The patient underwent extensive tests in the emergency department including a chest x-ray, urine analysis, CT abdomen and pelvis and CT angiogram of his lungs. All of these tests were negative for any source of possible infection. The patient's lactic acid was mildly elevated after he had persistent hypotension for a number of hours. The patient's hypotension, tachycardia and weakness appear to be resolving with IV fluids. I believe the likely cause of the patient's generalized weakness is a viral infection likely a viral hepatitis. It appears that this hepatitis may be going on for at least the last 2 weeks if not more than that. It is possible that the patient's viral syndrome also led to the patient developing diabetes and continues to cause patient to have elevated LFTs. The patient's CT of the abdomen does not show any signs of cirrhosis or other etiology for the patient's elevated bilirubin and LFTs. Plan: Supportive care Hepatitis panel Cortisol level PT evaluation (2) Hyperbilirubinemia Conclusion/Plan: The patient has hyperbilirubinemia which has been present now for 2 weeks. According to the patient he has been having darkish brown urine for over a month now. That indicates to me that likely this has been going on for over a month. The patient's CT of the abdomen and pelvis was negative for any signs of cirrhosis or other liver dysfunction. The patient already has a cholecystectomy and there is no common bile duct dilation. The patient did have abdominal pain that lasted for about 6 hours prior to arrival but that has completely subsided. I believe that the likely cause of the patient's hyperbilirubinemia is a viral hepatitis. The patient does not appear to be having any other signs for possible causes of hyperbilirubinemia as the patient does not have anemia to suggest this is hemolytic anemia. The patient does not appear to be septic at this time the sepsis could also be a cause of hyperbilirubinemia. The patient does not appear to have biliary obstruction. The patient does not drink alcohol anymore for this to be alcoholic hepatitis. The patient's CT does not show any signs of liver infiltration. This does not appear to be ischemic hepatopathy unless patient has been chronically hypotensive but his blood pressure is already improved with fluid in the emergency department and was stable on his last visit 2 weeks ago. Plan: Viral hepatitis panel Supportive care IV fluids Monitor LFTs Abdominal ultrasound HIV test (3) Hyponatremia Conclusion/Plan: The patient was hyponatremic on presentation to the emergency department. This appears to be hypovolemic hyponatremia as the patient does appear to be de hydrated. Patient will be given IV fluids and we will continue to monitor his sodium. (4) Diabetes mellitus Conclusion/Plan: The patient was recently diagnosed with type 2 diabetes and started on metformin. The patient's blood glucose was elevated on presentation. 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 These medications will be continued while the patient is hospitalized. Patient does not have any chest pain but does complain of worsening shortness of breath with exertion over the last few months. We will get an echocardiogram to evaluate this increasing shortness of breath although his BNP is not significantly elevated. (6) BPH (benign prostatic hyperplasia) Conclusion/Plan: The patient was recently diagnosed with BPH after having issues with decreased urine stream and urinary retention. Patient was recently started on Flomax. We will continue the patient on Flomax while he is hospitalized here. Qualifiers: Lower urinary tract symptom presence: symptoms present - Lab Results Lab results reviewed: Yes Fish Bones: 06/03/18 16:20 06/03/18 16:20 Other Lab Results: Laboratory Results WBC 11.4 x10^3/uL (4.8-10.8) H 06/03/18 16:20 RBC 4.36 10^6/uL (4.70-6.10) L 06/03/18 16:20 Hgb 13.5 g/dL (14.0-18.0) L 06/03/18 16:20 Hct 40.4 % (42.0-52.0) L 06/03/18 16:20 MCV 92.6 fL (80.0-94.0) 06/03/18 16:20 MCH 31.0 pg (27.0-31.0) 06/03/18 16:20 MCHC 33.4 g/dL (32.0-36.0) 06/03/18 16:20 RDW 12.7 % (12.0-15.0) 06/03/18 16:20 Plt Count 228 10^3/uL (130-450) 06/03/18 16:20 MPV 8.1 fL (7.4-11.4) 06/03/18 16:20 Neut # (Auto) 10.7 10^3/uL (1.5-6.6) H 06/03/18 16:20 Lymph # (Auto) 0.2 10^3/uL (1.5-3.5) L 06/03/18 16:20 [place] # (Auto) 0.5 10^3/uL (0.0-1.0) 06/03/18 16:20 Eos # (Auto) 0.0 10^3/uL (0.0-0.7) 06/03/18 16:20 Baso # (Auto) 0.0 10^3/uL (0.0-0.1) 06/03/18 16:20 Absolute Nucleated RBC 0.00 x10^3/uL 06/03/18 16:20 Nucleated RBC % 0.0 /100WBC 06/03/18 16:20 D-Dimer 257.8 ng/mL (200.0-255.0) H 06/03/18 20:35 Sodium 132 mmol/L (135-145) L 06/03/18 16:20 Potassium 3.9 mmol/L (3.5-5.0) 06/03/18 16:20 Chloride 98 mmol/L (101-111) L 06/03/18 16:20 Carbon Dioxide 23 mmol/L (21-32) 06/03/18 16:20 Anion Gap 11.0 (6-13) 06/03/18 16:20 BUN 20 mg/dL (6-20) 06/03/18 16:20 Creatinine 0.8 mg/dL (0.6-1.2) 06/03/18 16:20 Estimated GFR (MDRD) 94 (>89) 06/03/18 16:20 Glucose 338 mg/dL (70-100) H 06/03/18 16:20 Lactic Acid 2.6 mmol/L (0.5-2.2) H 06/03/18 20:35 Calcium 8.1 mg/dL (8.5-10.3) L 06/03/18 16:20 Total Bilirubin 5.1 mg/dL (0.2-1.0) H 06/03/18 16:20 AST 53 IU/L (10-42) H 06/03/18 16:20 ALT 59 IU/L (10-60) 06/03/18 16:20 Alkaline Phosphatase 225 IU/L (42-121) H 06/03/18 16:20 Troponin I < 0.04 ng/mL (<0.49) 06/03/18 20:35 B-Natriuretic Peptide 147 pg/mL (5-100) H 06/03/18 20:35 Total Protein 6.9 g/dL (6.7-8.2) 06/03/18 16:20 Albumin 3.3 g/dL (3.2-5.5) 06/03/18 16:20 Globulin 3.6 g/dL (2.1-4.2) 06/03/18 16:20 Albumin/Globulin Ratio 0.9 (1.0-2.2) L 06/03/18 16:20 Lipase 12 U/L (22-51) L 06/03/18 16:20 TSH 0.64 uIU/mL (0.34-5.60) 06/03/18 20:35 Urine Color DARK YELLOW 06/03/18 16:45 Urine Clarity CLEAR (CLEAR) 06/03/18 16:45 Urine pH 6.0 PH (5.0-7.5) 06/03/18 16:45 Ur Specific [place] >=1.030 (1.002-1.030) H 06/03/18 16:45 Urine Protein NEGATIVE mg/dL (NEGATIVE) 06/03/18 16:45 Urine Glucose (UA) 500 mg/dL (NEGATIVE) H 06/03/18 16:45 Urine Ketones TRACE mg/dL (NEGATIVE) 06/03/18 16:45 Urine Occult Blood NEGATIVE (NEGATIVE) 06/03/18 16:45 Urine Nitrite NEGATIVE (NEGATIVE) 06/03/18 16:45 Urine Bilirubin MODERATE (NEGATIVE) H 06/03/18 16:45 Urine Urobilinogen 4 E.U./dL (NORMAL) H 06/03/18 16:45 Ur Leukocyte Esterase NEGATIVE (NEGATIVE) 06/03/18 16:45 Ur Microscopic Review NOT INDICATED 06/03/18 16:45 Urine Culture Comments NOT INDICATED 06/03/18 16:45 Infectious [place] Assay NEGATIVE (Negative) 06/03/18 20:35 Influenza A (Rapid) Negative (Negative) 06/03/18 21:45 Influenza B (Rapid) Negative (Negative) 06/03/18 21:45 - Diagnostic Imaging Results Diagnostic Imaging Results: positive: Final report reviewed Diagnostic Imaging Results Comments: EXAM: [id number] CT/ABPEWO ([id number]) Reason: hypotension abd pain Procedure Date: 06/03/2018 Accession Number: [id number] / [id number] Procedure: CT - Abdomen/Pelvis W/O CPT Code: FULL RESULT: EXAM: CT ABDOMEN AND PELVIS WITHOUT CONTRAST. EXAM DATE: 06/03/2018 05:33 PM. CLINICAL HISTORY: Hypotension, abdominal pain. COMPARISONS: Abdomen and pelvis without 06/03/2018 5:23 PM. TECHNIQUE: Routine helical CT imaging was performed through the abdomen and pelvis. IV contrast: No. Enteric contrast: No. Reconstructions: Coronal and sagittal. In accordance with CT protocol optimization, one or more of the following dose reduction techniques were utilized for this exam: automated exposure control, adjustment of mA and/or KV based on patient size, or use of iterative reconstructive technique. FINDINGS: Lung Bases: Unremarkable. Liver: Noncontrast appearance of the liver is unremarkable. Gallbladder/Bile Ducts: The gallbladder has been removed. No bile duct dilatation. Spleen: Normal. Pancreas: Normal. Adrenal Glands: Normal. Kidneys: No urinary tract stones or obstruction. Peritoneal Cavity/Bowel: Normal. No free fluid, free air or adenopathy. No masses or acute inflammatory process. The appendix is well visualized and normal. Pelvic Organs: Normal. The bladder and visualized pelvic organs are within normal limits. Vasculature: No aneurysms or other significant abnormality. Bones: No significant abnormality. Other: There is a 1.9 cm fat-containing umbilical hernia as well as an adjacent 1 cm left periumbilical hernia. No herniated bowel loops. IMPRESSION: 1. No bowel obstruction, fluid collection or acute inflammatory process. 2. Small fat-containing umbilical and left periumbilical hernias. 3. The gallbladder has been removed. EXAM: [id number] XR/[id number] ([id number]) Reason: hypotension Procedure Date: 06/03/2018 Accession Number: [id number] / [id number] Procedure: XR - Chest 2 View X-Ray CPT Code: 94815 FULL RESULT: EXAM: CHEST RADIOGRAPHY EXAM DATE: 06/03/2018 05:47 PM. CLINICAL HISTORY: Hypotension. COMPARISON: CHEST 1 VIEW 05/19/2018 1:46 AM. TECHNIQUE: 2 views. FINDINGS: Lungs/Pleura: No focal opacities evident. No pleural effusion. No pneumothorax. Normal volumes. Mediastinum: Heart and mediastinal contours are unremarkable. Other: There is disk osteophyte disease of the thoracic spine. IMPRESSION: Negative for an acute cardiopulmonary abnormality. EXAM: [id number] CT/CHTANG ([id number]) Reason: tachy hypoxic soa Procedure Date: 06/03/2018 Accession Number: [id number] / [id number] Procedure: CT - Chest Angio (PE) CPT Code: FULL RESULT: EXAM: CT ANGIOGRAM CHEST EXAM DATE: 06/03/2018 08:27 PM. CLINICAL HISTORY: Tachy hypoxic soa. COMPARISON: None. TECHNIQUE: Routine helical imaging was performed through the chest in the pulmonary arterial phase. IV Contrast: ISOVUE 300 80mL. Reconstructions: Coronal 3-D MIP reconstructions.Sagittal and coronal. In accordance with CT protocol optimization, one or more of the following dose reduction techniques were utilized for this exam: automated exposure control, adjustment of mA and/or KV based on patient size, or use of iterative reconstructive technique. FINDINGS: Pulmonary Arteries: Diagnostic quality: Adequate through the segmental arteries. Negative for acute pulmonary embolism. Main pulmonary artery is normal in size. Lungs/Pleura: There are fine basilar reticular opacities. There is peripheral airway thickening with airway secretions. There is no consolidation or mass. There are mild left pleural calcifications. No pleural effusion. Mediastinum: The heart size is normal. There is no pericardial effusion. No mediastinal or hilar lymphadenopathy. Thoracic Aorta: No aneurysm or dissection of the thoracic aorta. Upper Abdomen: Unremarkable. Other: None. IMPRESSION: 1. Negative for acute pulmonary embolism. 2. Peripheral basilar pulmonary scarring 3. 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 4. No acute pneumonia. 5. Lower lobe airway inflammation with airway secretions. 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 Sinus rhythm no new ST changes. Core Measures - Anticipated LOS I expect patient to be DC'd or transferred within 96 hours.: Yes - DVT/VTE - Prophylaxis VTE/DVT Prophylaxis med ordered at admit?: Yes
[2018-06-04] MEDS: SODIUM CHLORIDE FLUSH 0.9% 10 ML SYRINGE IVP SCH ×3 (00:05→21:39)
[2018-06-04 05:23] LABS: BASOPHILS % (AUTO) 0.2 %; EOSINOPHILS % (AUTO) 0.2 %; HGB - HEMOGLOBIN 10.8 g/dL (14.0-18.0); LYMPHOCYTES # (AUTO) 0.7 10^3/uL (1.5-3.5); LYMPHOCYTES % (AUTO) 9.3 %; MEAN CORPUSCULAR HEMOGLOBIN 31.6 pg (27.0-31.0); MEAN CORPUSCULAR HGB CONC 34.4 g/dL (32.0-36.0); MEAN PLATELET VOLUME 7.9 fL (7.4-11.4); MONOCYTES # (AUTO) 0.5 10^3/uL (0.0-1.0); MONOCYTES % (AUTO) 7.2 %; NEUTROPHILS # (AUTO) 6.1 10^3/uL (1.5-6.6); NEUTROPHILS % (AUTO) 83.1 %; PLT - PLATELET COUNT 166 10^3/uL (130-450); RED BLOOD COUNT 3.42 10^6/uL (4.70-6.10); RED CELL DISTRIBUTION WIDTH 12.7 % (12.0-15.0); WHITE BLOOD COUNT 7.3 x10^3/uL (4.8-10.8)
[2018-06-04 05:26] LABS: INR 1.3 (0.8-1.2)
[2018-06-04 05:37] LABS: ALBUMIN 2.6 g/dL (3.2-5.5); ALBUMIN/GLOBULIN RATIO 0.9 (1.0-2.2); BILIRUBIN,TOTAL 4.3 mg/dL (0.2-1.0); CREATININE 0.4 mg/dL (0.6-1.2); MAGNESIUM 1.6 mg/dL (1.7-2.8); PHOSPHORUS 2.8 mg/dL (2.5-4.6); TOTAL PROTEIN 5.5 g/dL (6.7-8.2)
[2018-06-04 05:40] LABS: HB2 TOTAL 10.7 g/dL; HEMOGLOBIN A1C 1.04 g/dL
[2018-06-04] MEDS: MAGNESIUM OXIDE 400 MG TABLET PO SCH (08:17)
[2018-06-04] MEDS: POTASSIUM CHLORIDE 20 MEQ TABLET PO SCH (08:18)
[2018-06-04] MEDS: POLYETHYLENE GLYCOL 3350 17 GM PACKET PO SCH (08:18)
[2018-06-04] MEDS: ENOXAPARIN 40 MG/0.4 ML SYRINGE SUBQ SCH (08:19)
[2018-06-04] MEDS: INSULIN ASPART 300 UNIT/3 ML PEN SUBQ SCH ×4 (08:19→21:38)
[2018-06-04] MEDS: TAMSULOSIN 0.4 MG CAPSULE PO SCH (08:20)
[2018-06-04] MEDS ORDERED: CLOPIDOGREL 75 MG TABLET PO SCH (09:00)
--- NOTE | 2018-06-04 09:31 | Ultrasound Report ---
Reason: Elevated bilirubin, abdominal pain, hypotension Procedure Date: 06/04/2018 Accession Number: [id number] / [id number] Procedure: US - Abdomen Complete CPT Code: FULL RESULT: EXAM: ABDOMEN ULTRASOUND EXAM DATE: 06/04/2018 08:51 AM. CLINICAL HISTORY: Elevated bilirubin, abdominal pain, hypotension. COMPARISON: ABDOMEN/PELVIS W/ 05/19/2018 4:36 AM. TECHNIQUE: Real-time scanning was performed with static images obtained. FINDINGS: Liver: Normal in size and echotexture. 19.1 cm. Main portal vein flow: Hepatopetal. Gallbladder: Surgically absent. Biliary System: Common bile duct measures 10 mm. Images 16 through 23 raise concern for nonshadowing filling defects within the CBD. Pancreas: Not well seen. Kidneys: Right: 12.8 cm longitudinally. 1.2 cm exophytic lower pole cyst. Left: 14 cm longitudinally. 1.3 cm upper pole cyst with increased through transmission. Mild left renal cortical thinning. No suspicious mass or hydronephrosis involving either kidney. Spleen: 15.2 x 6.2 x 6.5 cm, 320 cc. Upper limit of normal for size. Aorta and Inferior Vena Cava: Unremarkable. Other: None. IMPRESSION: 1. Prior cholecystectomy. 2. Ultrasound raises concern for nonshadowing filling defects within CBD. Differential diagnosis includes choledocholithiasis, sludge, tumor or an artifact. Suggest ERCP. RADIA
--- NOTE | 2018-06-04 16:28 | PROVIDER PROGRESS NOTE ---
Assessment/Plan - Problem List (1) Fever Qualifiers: Encounter type: subsequent encounter Assessment/Plan: WBC was minimally elevated and is now down. The most likely etiology was cholecystitis or viral syndrome, even viral Hepatitis. Ultrasound of abd showed Await cultures. (2) Generalized weakness Assessment/Plan: He is still weak, even after hypoension resolved with iv hydration and no further fever. He still feels too weak to return home , where he lives alone. PT and OT evaluations ordered. (3) Hyperbilirubinemia Assessment/Plan: Bili dropped from [address] of abd showed no gallsone or dilated duct. GB removed. US today states non-shadowing filling defect in common bile duct. Will evaluate with MRI if bilirubin still elevated tomorrow. (4) Electrolyte abnormality Assessment/Plan: Will replace K, Mg. Follow BMP, Mg daily. (5) Diabetes mellitus Qualifiers: Diabetes mellitus type: type 2 Diabetes mellitus terminal supervisor insulin use: without terminal supervisor use Diabetes mellitus complication status: with hyperglycemia Qualified Code(s): E11.65 - Type 2 diabetes mellitus with hyperglycemia Assessment/Plan: DM was just diagnosed 2 weeks ago. He was possibly initially not receptive to he diet and medications needed. Today he was seen by Dietary, Cecilia, and was receptive to DM teaching and will attend the MAC appointments. Continue carb controlled diet, fingerstick checks and Insulin coverage. (6) History of coronary artery disease Assessment/Plan: No cardiac sx. Continue Plavix and his cardiac meds while here. (7) BPH (benign prostatic hyperplasia) Qualifiers: Lower urinary tract symptom presence: symptoms present Assessment/Plan: Continue his meds for BPH while here. - Current Meds Current Meds: Current Medications Generic Name Dose Route Start Last Admin Trade Name Lynn PRN Reason Stop Dose Admin Enoxaparin Sodium 40 mg 06/04/18 09:00 06/04/18 08:19 Lovenox SUBQ 40 mg DAILY MARIA DE JESUS Administration Insulin Aspart 1 - 9 unit 06/03/18 21:00 06/04/18 11:38 Novolog SUBQ 1 unit 0800,1200,1700,2100 MARIA DE JESUS Administration Protocol Magnesium Oxide 400 mg 06/04/18 08:00 06/04/18 08:17 Mag Ox PO 400 mg DAILYWM MARIA DE JESUS Administration Polyethylene Glycol 17 gm 06/04/18 09:00 06/04/18 08:18 Miralax PO 17 gm DAILY MARIA DE JESUS Administration Potassium Chloride 40 meq 06/04/18 08:00 06/04/18 08:18 K-Dur PO 40 meq DAILYWM MARIA DE JESUS Administration Sodium Chloride 10 ml 06/04/18 01:00 06/04/18 08:19 Normal Saline Flush 0.9% IVP 10 ml 0100,0900,1700 MARIA DE JESUS Administration Tamsulosin HCl 0.4 mg 06/04/18 09:00 06/04/18 08:20 Flomax PO 0.4 mg DAILY MARIA DE JESUS Administration - Lab Result Fish Bone Diagrams: 06/04/18 04:58 06/04/18 04:58 - Additional Planning My Orders: My Active Orders 06/04/18 10:48 Diabetic Education [RC] ONCE Subjective - Subjective Patient Reports: Resting Comfortably, Other (Feels exhausted) Objective Vital Signs: Vital Signs - 24 hr 06/03/18 06/03/18 06/03/18 16:28 16:52 17:02 Temperature Heart Rate 116 H 99 99 Heart Rate [ Brachial] Heart Rate [ Supine] Respiratory 14 19 14 Rate Blood Pressure 97/56 L 114/57 L 99/59 L Blood Pressure [Left Brachial artery] Blood Pressure [Right Brachial artery] Blood Pressure [Supine] O2 Saturation 95 95 95 06/03/18 06/03/18 06/03/18 19:00 19:35 20:00 Temperature Heart Rate 91 93 86 Heart Rate [ Brachial] Heart Rate [ Supine] Respiratory 17 19 14 Rate Blood Pressure 107/54 L 89/53 L 108/53 L Blood Pressure [Left Brachial artery] Blood Pressure [Right Brachial artery] Blood Pressure [Supine] O2 Saturation 93 93 96 06/03/18 06/03/18 06/03/18 20:57 21:46 23:38 Temperature 36.8 C 36.7 C Heart Rate 90 Heart Rate [ 89 71 Brachial] Heart Rate [ Supine] Respiratory 19 16 18 Rate Blood Pressure 115/59 L Blood Pressure 134/64 H [Left Brachial artery] Blood Pressure 116/60 [Right Brachial artery] Blood Pressure [Supine] O2 Saturation 97 98 97 06/04/18 06/04/18 06/04/18 04:09 08:00 11:45 Temperature 36.8 C 36.5 C Heart Rate Heart Rate [ 65 63 Brachial] Heart Rate [ 69 Supine] Respiratory 16 18 Rate Blood Pressure Blood Pressure [Left Brachial artery] Blood Pressure 113/56 L 124/61 [Right Brachial artery] Blood Pressure 124/61 [Supine] O2 Saturation 98 96 06/04/18 16:10 Temperature 36.7 C Heart Rate Heart Rate [ 62 Brachial] Heart Rate [ Supine] Respiratory 20 Rate Blood Pressure Blood Pressure [Left Brachial artery] Blood Pressure 134/53 H [Right Brachial artery] Blood Pressure [Supine] O2 Saturation 96 Oxygen O2 Source Room air I&O (Last 24 Hrs): Intake and Output Totals x24h 06/02/18 06/03/18 06/04/18 23:59 23:59 23:59 Intake Total 4450 2371.667 Output Total 1900 Balance 4450 471.667 General: Alert, Oriented x3 HEENT: Mucous membr. moist/pink, Other (Cheeks flushed (no temp currently)) Neuro: Non Focal, Other (Atrophied snuff box muscles, feet sensitive) Cardiovascular: No murmurs Respiratory: No respiratory distress, Breath sounds nml Abdomen: Soft, No tenderness Extremities: No edema - Results Results: Laboratory Results WBC 7.3 x10^3/uL (4.8-10.8) 06/04/18 04:58 RBC 3.42 10^6/uL (4.70-6.10) L 06/04/18 04:58 Hgb 10.8 g/dL (14.0-18.0) L 06/04/18 04:58 Hct 31.4 % (42.0-52.0) L 06/04/18 04:58 MCV 92.0 fL (80.0-94.0) 06/04/18 04:58 MCH 31.6 pg (27.0-31.0) H 06/04/18 04:58 MCHC 34.4 g/dL (32.0-36.0) 06/04/18 04:58 RDW 12.7 % (12.0-15.0) 06/04/18 04:58 Plt Count 166 10^3/uL (130-450) 06/04/18 04:58 MPV 7.9 fL (7.4-11.4) 06/04/18 04:58 Neut # (Auto) 6.1 10^3/uL (1.5-6.6) 06/04/18 04:58 Lymph # (Auto) 0.7 10^3/uL (1.5-3.5) L 06/04/18 04:58 Grundy # (Auto) 0.5 10^3/uL (0.0-1.0) 06/04/18 04:58 Eos # (Auto) 0.0 10^3/uL (0.0-0.7) 06/04/18 04:58 Baso # (Auto) 0.0 10^3/uL (0.0-0.1) 06/04/18 04:58 Absolute Nucleated RBC 0.00 x10^3/uL 06/04/18 04:58 Nucleated RBC % 0.0 /100WBC 06/04/18 04:58 PT 14.0 secs (9.9-12.6) H 06/04/18 04:58 INR 1.3 (0.8-1.2) H 06/04/18 04:58 D-Dimer 257.8 ng/mL (200.0-255.0) H 06/03/18 20:35 Sodium 138 mmol/L (135-145) 06/04/18 04:58 Potassium 3.3 mmol/L (3.5-5.0) L 06/04/18 04:58 Chloride 108 mmol/L (101-111) 06/04/18 04:58 Carbon Dioxide 22 mmol/L (21-32) 06/04/18 04:58 Anion Gap 8.0 (6-13) 06/04/18 04:58 BUN 12 mg/dL (6-20) 06/04/18 04:58 Creatinine 0.4 mg/dL (0.6-1.2) L 06/04/18 04:58 Estimated GFR (MDRD) 209 (>89) 06/04/18 04:58 Glucose 144 mg/dL (70-100) H 06/04/18 04:58 Glycated Hemoglobin 11.0 % (4.6-6.2) H 06/04/18 04:58 Estim Average Glucose 269 (70-100) H 06/04/18 04:58 Lactic Acid 0.8 mmol/L (0.5-2.2) 06/04/18 04:58 Calcium 7.0 mg/dL (8.5-10.3) L 06/04/18 04:58 Phosphorus 2.8 mg/dL (2.5-4.6) 06/04/18 04:58 Magnesium 1.6 mg/dL (1.7-2.8) L 06/04/18 04:58 Total Bilirubin 4.3 mg/dL (0.2-1.0) H 06/04/18 04:58 AST 41 IU/L (10-42) 06/04/18 04:58 ALT 47 IU/L (10-60) 06/04/18 04:58 Alkaline Phosphatase 152 IU/L (42-121) H 06/04/18 04:58 Ammonia 26.7 umol/L (7-35) 06/04/18 04:58 Troponin I < 0.04 ng/mL (<0.49) 06/03/18 20:35 B-Natriuretic Peptide 257 pg/mL (5-100) H 06/04/18 04:58 Total Protein 5.5 g/dL (6.7-8.2) L 06/04/18 04:58 Albumin 2.6 g/dL (3.2-5.5) L 06/04/18 04:58 Globulin 2.9 g/dL (2.1-4.2) 06/04/18 04:58 Albumin/Globulin Ratio 0.9 (1.0-2.2) L 06/04/18 04:58 Lipase 12 U/L (22-51) L 06/03/18 16:20 TSH 0.64 uIU/mL (0.34-5.60) 06/03/18 20:35 Cortisol AM Sample 15.5 ug/dL 06/04/18 04:58 Urine Color DARK YELLOW 06/03/18 16:45 Urine Clarity CLEAR (CLEAR) 06/03/18 16:45 Urine pH 6.0 PH (5.0-7.5) 06/03/18 16:45 Ur Specific Purcell >=1.030 (1.002-1.030) H 06/03/18 16:45 Urine Protein NEGATIVE mg/dL (NEGATIVE) 06/03/18 16:45 Urine Glucose (UA) 500 mg/dL (NEGATIVE) H 06/03/18 16:45 Urine Ketones TRACE mg/dL (NEGATIVE) 10/14/18 16:45 Urine Occult Blood NEGATIVE (NEGATIVE) 06/03/18 16:45 Urine Nitrite NEGATIVE (NEGATIVE) 06/03/18 16:45 Urine Bilirubin MODERATE (NEGATIVE) H 06/03/18 16:45 Urine Urobilinogen 4 E.U./dL (NORMAL) H 06/03/18 16:45 Ur Leukocyte Esterase NEGATIVE (NEGATIVE) 06/03/18 16:45 Ur Microscopic Review NOT INDICATED 06/03/18 16:45 Urine Culture Comments NOT INDICATED 06/03/18 16:45 Infectious Grundy Assay NEGATIVE (Negative) 06/03/18 20:35 Influenza A (Rapid) Negative (Negative) 06/03/18 21:45 Influenza B (Rapid) Negative (Negative) 06/03/18 21:45
[2018-06-05] MEDS: SODIUM CHLORIDE FLUSH 0.9% 10 ML SYRINGE IVP SCH ×3 (00:48→16:20)
[2018-06-05] MEDS ORDERED: METOPROLOL SUCCINATE 25 MG TABLET PO ONE (01:18)
[2018-06-05 05:41] LABS: BASOPHILS % (AUTO) 0.8 %; EOSINOPHILS # (AUTO) 0.1 10^3/uL (0.0-0.7); HGB - HEMOGLOBIN 11.8 g/dL (14.0-18.0); LYMPHOCYTES # (AUTO) 0.9 10^3/uL (1.5-3.5); LYMPHOCYTES % (AUTO) 17.2 %; MEAN CORPUSCULAR HEMOGLOBIN 30.6 pg (27.0-31.0); MEAN CORPUSCULAR HGB CONC 33.5 g/dL (32.0-36.0); MEAN CORPUSCULAR VOLUME 91.3 fL (80.0-94.0); MEAN PLATELET VOLUME 8.2 fL (7.4-11.4); MONOCYTES # (AUTO) 0.4 10^3/uL (0.0-1.0); MONOCYTES % (AUTO) 6.7 %; NEUTROPHILS # (AUTO) 3.9 10^3/uL (1.5-6.6); NEUTROPHILS % (AUTO) 73.3 %; PLT - PLATELET COUNT 219 10^3/uL (130-450); RED BLOOD COUNT 3.87 10^6/uL (4.70-6.10); RED CELL DISTRIBUTION WIDTH 12.7 % (12.0-15.0); WHITE BLOOD COUNT 5.3 x10^3/uL (4.8-10.8)
[2018-06-05 05:57] LABS: ALBUMIN 2.9 g/dL (3.2-5.5); ALBUMIN/GLOBULIN RATIO 0.9 (1.0-2.2); BILIRUBIN,TOTAL 4.6 mg/dL (0.2-1.0); CREATININE 0.4 mg/dL (0.6-1.2); MAGNESIUM 1.9 mg/dL (1.7-2.8); PHOSPHORUS 2.8 mg/dL (2.5-4.6); TOTAL PROTEIN 6.2 g/dL (6.7-8.2)
[2018-06-05] MEDS: METOPROLOL TARTRATE 25 MG TABLET PO SCH ×2 (07:36→08:48)
[2018-06-05] MEDS: POTASSIUM CHLORIDE 20 MEQ TABLET PO SCH (08:45)
[2018-06-05] MEDS: INSULIN ASPART 300 UNIT/3 ML PEN SUBQ SCH ×3 (08:45→17:39)
[2018-06-05] MEDS: TAMSULOSIN 0.4 MG CAPSULE PO SCH (08:45)
[2018-06-05] MEDS: MAGNESIUM OXIDE 400 MG TABLET PO SCH (08:45)
[2018-06-05] MEDS: POLYETHYLENE GLYCOL 3350 17 GM PACKET PO SCH (08:46)
[2018-06-05] MEDS: ENOXAPARIN 40 MG/0.4 ML SYRINGE SUBQ SCH (08:46)
--- NOTE | 2018-06-05 11:51 | MRI Report ---
Reason: elevated lft, abd pain, cbd biliary mass Procedure Date: 06/05/2018 Accession Number: [id number] / [id number] Procedure: MRI - MRCP W/O CPT Code: FULL RESULT: EXAM: MR ABDOMEN WITHOUT CONTRAST (MR CHOLANGIOPANCREATOGRAPHY) EXAM DATE: 06/05/2018 11:18 AM. CLINICAL HISTORY: Elevated LFT, abd pain, cbd dilation. COMPARISON: Abdominal ultrasound from 06/04/2018, CT of the abdomen and pelvis from 06/03/2018, 05/19/2018. TECHNIQUE: Multiplanar breath-hold T1 and T2 sequences obtained through the abdomen on an MR scanner. Dedicated 2D MRCP sequences obtained through the biliary and pancreatic ducts. No intravenous contrast given. FINDINGS: Lung Bases: The lung bases are clear. Liver: Overall hepatic size, morphology, and signal characteristics are within normal limits. Gallbladder: Surgically absent. Bile ducts: The common bile ducts is normal in caliber, measuring approximately 8 mm (series 301, image 16). It tapers distally. There appeared to be dependent filling defects in the mid and distal common bile duct (series 601, image 12), suggestive of sludge or small stones. There is slight prominence of the central intrahepatic ducts. However, no intervening stricture is demonstrated, and this may represent postcholecystectomy change. Pancreas: There is a 5 mm T2 hyperintense structure in the pancreatic head (series 601, image 6). This may represents side branch intraductal papillary mucinous neoplasm (IPMN). Main pancreatic duct is normal in caliber. Spleen: At the upper limits of normal for size, measuring approximately 12.9 cm in craniocaudal dimension. No focal splenic lesion by noncontrast examination. Kidneys and Adrenals: No adrenal nodules. There are multiple T2 hyperintense foci in the kidneys, suggestive of cysts. No hydronephrosis. Bowel: Visualized portions are unremarkable without evidence for obstruction. Retroperitoneum: No abdominal aortic aneurysm. No retroperitoneal adenopathy. IMPRESSION: 1. No biliary ductal dilation is demonstrated; however, there appear to be layering filling defects in the mid and distal common bile duct, suggestive of small stones or sludge. 2. 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 Consider follow-up with MRI/MRCP in 2 years. RADIA
[2018-06-05 14:46] LABS: HIV AG/AB 4TH GEN NON-REACTIVE (NON-REACTIVE)
[2018-06-05] MEDS: POTASSIUM CHLOR 10 MEQ/100 ML 10 MEQ/100 ML BAG IV SCH ×3 (14:47→19:16)
[2018-06-05 15:02] LABS: HEPATITIS A IGM NON-REACTIVE (NON-REACTIVE); HEPATITIS B CORE ANTIBODY IGM NON-REACTIVE (NON-REACTIVE); HEPATITIS B SURFACE ANTIGEN NON-REACTIVE (NON-REACTIVE); HEPATITIS C ANTIBODY NON-REACTIVE (NON-REACTIVE)
[2018-06-05] MEDS ORDERED: SODIUM CHLORIDE 0.9% 500 ML IV ONE (15:49)
[2018-06-05] MEDS ORDERED: PIPERACILLIN/TAZOBACTAM 3.375 GM in SODIUM CHLORIDE 0.9% MINIBAG 100 ML IV SCH (17:00)
[2018-06-05 18:30] VITALS: BP 150/75
--- NOTE | 2018-06-05 19:01 | DISCHARGE SUMMARY ---
Physician: Flor Ozuna MD DATE OF ADMISSION: 06/03/2018 DATE OF DISCHARGE: 06/05/2018 DISCHARGE DIAGNOSES 1. Biliary colic. 2. Choledocholithiasis. 3. History of cholecystectomy. 4. Hyponatremia. 5. Type 2 diabetes mellitus with hyperglycemia, not on long-term insulin. 6. History of coronary artery disease and stent. 7. Benign prostatic hypertrophy. PRINCIPAL PROCEDURES 1. Echocardiogram showing a technically excellent study. Left ventricular wall thickness normal. Left ventricular systolic function normal with ejection fraction 60 to 65%. Grade 1 diastolic dysfunction. Moderate to severe increase in left atrial volume index. Severe right atrial enlargement. Minimal valvular heart disease. Mildly abnormal right heart pressures at 44 mmHg. This is a preliminary study, please verify final report. 2. Chest x-ray with no acute cardiopulmonary process. 3. Abdomen/pelvis CT: With no bowel obstruction, fluid collection or acute inflammatory process. Small fat-containing umbilical and left periumbilical hernias. Gallbladder has been removed. No bile duct dilatation. 4. Chest/thorax CT/angiogram: Negative for acute pulmonary embolism. Lower lobe airways inflammation with airway secretions. No pneumonia. 5. Abdominal ultrasound: Prior cholecystectomy. Concern for nonshadowing filling defects within the common bile duct. Differential diagnosis includes choledocholithiasis, sludge, tumor, or an artifact. 6. MRCP: Common bile duct normal in caliber measuring 8 mm. Tapers distally. Dependent filling defects in the mid and distal common bile duct suggestive of sludge or small stones. There is a 5 mm T2 hyperintense structure in the pancreatic head. Consider followup with MRI MRCP in 2 years. 7. Blood cultures: No growth after 2 days. MEDICATIONS AT THE TIME OF TRANSFER 1. Tylenol. 2. Lovenox subcutaneously, with last dose 0846 on the morning of transfer. 3. NovoLog insulin 3 units, with lunch on the day of discharge. 4. Magnesium oxide. 5. Lopressor 25 p.o. b.i.d. 6. Potassium chloride 40 mEq. 7. Potassium-riders. 7. Flomax 0.4 mg daily. HOSPITAL COURSE: The patient is a 78-year-old white male who presents to the emergency room with generalized weakness, so severe he cannot get up out of a chair. He has a past medical history for coronary artery disease with a stent 5 or 6 years ago. He just had diabetes mellitus diagnosed 2 weeks ago and was started on metformin. 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 He started feeling weak and fatigued for 2 months. He thinks that he started when he ate at the [employer] restaurant 2 months ago. After eating a hamburger, he developed vomiting and diarrhea which lasted for about a day. He recovered from the diarrhea and vomiting, and ever since then has been very tired and just has not felt the same. Over the last month, he has just been getting weaker and weaker. He has been having increasing shortness of breath with exertion. He had chest pain a couple of weeks ago, and he came to the emergency room, but he had a negative workup and was told to followup with his primary care physician. He did followup with his PCP and was started on Flomax for urinary retention, as well as metformin for newly diagnosed diabetes mellitus. The symptoms will come in waves. He will have a few days where he feels incredibly tired and has generalized weakness, then he has a few days where he feels better, but then these are alternated with attacks where he feels weak and fatigued. He was sitting in his chair on the day of admission, and when he tried to get up, he was so weak he could not get up. He tried 5 or 6 times and kept falling back into the chair. He called 911 and came to the ER. In addition to the above history, he has had urine that has been brown, decreasing appetite for a month, burning when he urinates. He used to drink heavily in the past, but stopped 2 years ago. No fever, no chills. Shortness of breath has not changed over the last month, denies cough, congestion, phlegm production. He had some mild abdominal pain in the lower part of his abdomen that lasted for about 6 hours on the day of admission, but it resolved on its own. In the emergency room, he had a low-grade fever of 37.6, tachycardic to 117, blood pressure 90/62 with a normal respiratory rate. O2 sat was 92% on room air. He had mild leukocytosis of 11.4; hyponatremia that was mild at 132; elevated and uncontrolled glucose of 338. Bilirubin was 5.1. Two weeks ago, it was 6.3. He has an elevated alkaline phosphatase and AST. Lactic acid was 1.8, but when rechecked 4 hours later, it was 2.6. Urinalysis had moderate bilirubin and glucosuria but otherwise negative for infection. He was admitted to the hospital with an initial presumptive diagnosis of viral hepatitis. He had elevated liver enzymes, a 2-month course of just not feeling well, and brown urine. Initial CT of the abdomen was negative and did not help contribute to the differential diagnosis. He then had an abdominal ultrasound and that showed filling defects in the common bile duct. He was not treated with antibiotics and just received supportive care. MRCP was done on the day of discharge. The MRCP is what showed the choledocholithiasis. I did speak with Dr. Verde, who is GI at [facility]. Dr. Verde feels patient is a candidate for ERCP and would like the patient transferred to the hospitalist service so he can get an ERCP tomorrow. Patient has received Lovenox on the morning of discharge. Dr. Verde wanted him on Zosyn. Patient does describe having nausea and vomiting with amoxicillin in the past, but IS NOT ALLERGIC TO PENICILLINS. He says he takes it on a regular basis for his dental procedures. As such, he started on single agent Zosyn before he leaves. Echocardiogram was done because of the shortness of breath and the results are as above. His type 2 diabetes mellitus was controlled with sliding scale Novolin insulin. He is glycosylated hemoglobin is 11%. For his benign prostatic hypertrophy symptoms, he was continued on Flomax. He is discharged in stable condition. Potassium on the day of discharge was 3.2, and he has received both p.o. potassium and IV potassium. White cell count was 5.3 on the day of discharge without antibiotic therapy. PHYSICAL EXAMINATION VITAL SIGNS: Temperature is 36.8, pulse is 97, blood pressure 159/71, respirations 18, 96% on room air. GENERAL APPEARANCE: He is a tall, pale, elderly gentleman with a slow, pedantic speech pattern. Almost anhedonic. No facial asymmetry. Normal speech. NECK: Supple without goiter or bruits. LUNGS: Lungs have diminished breath sounds at the bases, but he is clear to crackles, rhonchi, wheezing. No increased respiratory effort with talking to me or walking in the room. HEART: He has a regular rate and rhythm with a soft systolic ejection murmur. PMI is normally placed. ABDOMEN: Soft, nontender. Normal bowel sounds. Slightly distended with his obesity. EXTREMITIES: Warm without clubbing, cyanosis or edema. His main complaint is an infiltrated IV in the left forearm, and his IV is now going to be placed in the right forearm. He is instructed to followup with his primary care provider, Durga Hanley, when he gets out of [facility]. As he was being discharged, the patient suddenly changed his mind and said that he wanted to go to [facility] because they operated on him over 20-25 years ago. I explained to him that the ambulance was here. And that while I was willing to cancel this transfer to try and find a bed at [facility], there is no guarantee that [facility] would have a bed. His brother was on the phone. Brother then stated that he would just drive by to picker his brother and he would take him personally to [facility] emergency room and take care of it that way. I tried to explain to them EMTALA That would not be a great idea. In the end, the patient decided to go to [facility] TD: 06/05/2018 17:13 MTDD
== END 2018-06-05 19:35 | disposition short-term general hospital (02) ==
LOC: EDUNIT# → ED 15:57 → MS3 20:15
PROVIDERS: ADMIT Internal Medicine; ATTEND Internal Medicine
DX: K80.50 Calculus of bile duct without cholangitis or cholecystitis without obstruction (principal); E87.1 Hypo-osmolality and hyponatremia; E11.65 Type 2 diabetes mellitus with hyperglycemia; Z79.84 Long term (current) use of oral hypoglycemic drugs; I25.10 Atherosclerotic heart disease of native coronary artery without angina pectoris; Z95.5 Presence of coronary angioplasty implant and graft; N40.1 Benign prostatic hyperplasia with lower urinary tract symptoms; R33.8 Other retention of urine; R39.12 Poor urinary stream; E80.6 Other disorders of bilirubin metabolism; R06.02 Shortness of breath; I95.9 Hypotension, unspecified; Z90.49 Acquired absence of other specified parts of digestive tract; R74.8 Abnormal levels of other serum enzymes; Z87.891 Personal history of nicotine dependence; D72.829 Elevated white blood cell count, unspecified; I25.2 Old myocardial infarction; R00.0 Tachycardia, unspecified; B34.9 Viral infection, unspecified; K75.9 Inflammatory liver disease, unspecified; E87.8 Other disorders of electrolyte and fluid balance, not elsewhere classified; Z79.82 Long term (current) use of aspirin
CPT/HCPCS: 36415; 51798; 71046; 71275; 74176; 74181; 76700; 80053; 80074; 81003; 82140; 82533; 83036; 83605; 83690; 83735; 83880; 84100; 84443; 84484; 85025; 85379; 85610; 86308; 87040; 87275; 87276; 93005; 93306; 96361; 96365; 96366; 96367; 96372; 96376; 97116; 97161; 99284; 99285; A9270; G0378; G0475; G8978; G8979; G8980; J1650; J3370; Q9967; 81001; 87086; 87389

== ENCOUNTER 2018-07-31 00:04 | Emergency (ER) | payer MEDICARE, OTHER ==
--- NOTE | 2018-07-31 00:24 | ED Physician Documentation ---
History of Present Illness - Stated complaint Stated Complaint: HIGH BLOOD SUGAR - Chief complaint Chief Complaint: Resp - History obtained from History obtained from: Patient - History of Present Illness Timing: Today (tonight) Pain level max: 0 Pain level now: 0 Improved by: no ameliorating factors Worsened by: exertion - Additonal information Additional information: patient felt dyspnea on exertion tonight which he felt was a symptom he has had in the past associated with hyperglycemia. He thus checked his blood sugar and had result of 498. He checks his blood sugars on a daily basis, and has not had recent high readings before tonight. Review of Systems Constitutional: denies: Fever, Chills, Fatigue, Sweats Respiratory: reports: Dyspnea, Cough (occasional cough which patient says is no worse than usual (baseline cough)) GI: reports: Reviewed and negative : denies: Dysuria, Frequency Neurologic: denies: Generalized weakness, Focal weakness, Numbness, Headache Endocrine: denies: Polydypsia, Polyuria PD PAST MEDICAL HISTORY - Past Medical History Cardiovascular: Coronary artery disease, [place] Respiratory: None Neuro: None Endocrine/Autoimmune: Type 2 diabetes GI: GERD, Diverticulitis : Benign prostate hypertrophy HEENT: None Psych: None Musculoskeletal: Osteoarthritis Derm: None - Past Surgical History Past Surgical History: Yes General: Cholecystectomy, Bowel surgery Cardiovascular: Coronary stent - Present Medications Home Medications: Ambulatory Orders Medication Instructions Recorded Confirmed Metoprolol Tartrate [Lopressor] 25 mg PO BID 11/23/13 07/31/18 Metformin HCl 1,000 mg PO BIDWM 06/04/18 07/31/18 Pentazocine HCl/Naloxone HCl 1 tab PO .Q3-4H PRN MDD 5 TABS 06/04/18 06/04/18 [Pentazocine-Naloxone Tablet] Tamsulosin [Flomax] 0.4 mg PO DAILY 06/04/18 07/31/18 glipiZIDE [Glipizide] 5 mg PO 07/31/18 - Allergies Allergies/Adverse Reactions: Allergies Allergy/AdvReac Type Severity Reaction Status Date / Time amoxicillin trihydrate * Allergy Nausea Verified 07/31/18 00:21 [From Augmentin] potassium clavulanate * Allergy Nausea Verified 07/31/18 00:21 [From Augmentin] - Social History Does the pt smoke?: Yes Smoking Status: Former smoker Does the pt drink ETOH?: Yes Does the pt have substance abuse?: No - Immunizations Immunizations are current?: No Immunizations: TDAP >10years/unknown - POLST Patient has POLST: No POLST Status: Full Code PD ED PE NORMAL - Vitals Vital signs reviewed: Yes - General General: Alert and oriented X 3, No acute distress, Well developed/nourished - HEENT HEENT: Moist mucous membranes - Cardiac Cardiac: No murmur, No gallop, No rub - Respiratory Respiratory: No respiratory distress, Clear bilaterally - Abdomen Abdomen: Soft, Non tender - Derm Derm: Normal color, Warm and dry - Extremities Extremities: No edema - Neuro Neuro: Alert and oriented X 3 PD ED PE EXPANDED - Cardiac Cardiac: Tachy, Regular Rhythm Results - Vitals Vitals: Vital Signs - 24 hr 07/31/18 07/31/18 07/31/18 00:12 00:25 00:54 Temperature 36.6 C Heart Rate 111 H 104 H 108 H Respiratory 18 18 13 Rate Blood Pressure 138/81 H 148/88 H O2 Saturation 94 98 97 07/31/18 07/31/18 02:08 02:53 Temperature Heart Rate 102 H 103 H Respiratory 14 16 Rate Blood Pressure 140/81 H 109/72 O2 Saturation 94 95 Oxygen O2 Source Room air - EKG (time done) No standard instances Rate: Rate (enter#) (108), Tachy Rhythm: Sinus tachycardia Labelle: LAD, Anterior hemiblock Intervals: Normal [place] QRS: Normal Ischemia: Normal ST segments, Q waves (II, III, aVF) Compare to prior EKG: Unchanged from prior EKG (no significant change compared to 06/03/18) - Labs Labs: Laboratory Tests 07/31/18 07/31/18 07/31/18 00:20 00:55 00:55 WBC 9.0 RBC 4.60 L Hgb 14.2 Hct 41.7 L MCV 90.7 MCH 30.9 MCHC 34.1 RDW 13.1 Plt Count 252 MPV 7.5 Neut # (Auto) 6.6 Lymph # (Auto) 1.7 Forrest # (Auto) 0.5 Eos # (Auto) 0.1 Baso # (Auto) 0.0 Absolute Nucleated RBC 0.01 Nucleated RBC % 0.1 Sodium 131 L Potassium 3.5 Chloride 95 L Carbon Dioxide 23 Anion Gap 13.0 BUN 17 Creatinine 0.9 Estimated GFR (MDRD) 82 L Glucose 248 H POC Whole Bld Glucose 239 H Calcium 8.8 Total Bilirubin 1.1 H AST 33 ALT 34 Alkaline Phosphatase 204 H Troponin I Total Protein 7.8 Albumin 3.8 Globulin 4.0 Albumin/Globulin Ratio 1.0 Lipase 12 L Urine Color Urine Clarity Urine pH Ur Specific [place] Urine Protein Urine Glucose (UA) Urine Ketones Urine Occult Blood Urine Nitrite Urine Bilirubin Urine Urobilinogen Ur Leukocyte Esterase Ur Microscopic Review Urine Culture Comments Serum Ketones NEGATIVE 07/31/18 07/31/18 00:55 02:00 WBC RBC Hgb Hct MCV MCH MCHC RDW Plt Count MPV Neut # (Auto) Lymph # (Auto) Forrest # (Auto) Eos # (Auto) Baso # (Auto) Absolute Nucleated RBC Nucleated RBC % Sodium Potassium Chloride Carbon Dioxide Anion Gap BUN Creatinine Estimated GFR (MDRD) Glucose POC Whole Bld Glucose Calcium Total Bilirubin AST ALT Alkaline Phosphatase Troponin I < 0.04 Total Protein Albumin Globulin Albumin/Globulin Ratio Lipase Urine Color YELLOW Urine Clarity CLEAR Urine pH 5.5 Ur Specific [place] 1.010 Urine Protein NEGATIVE Urine Glucose (UA) 100 H Urine Ketones 15 H Urine Occult Blood NEGATIVE Urine Nitrite NEGATIVE Urine Bilirubin NEGATIVE Urine Urobilinogen 0.2 (NORMAL) Ur Leukocyte Esterase NEGATIVE Ur Microscopic Review NOT INDICATED Urine Culture Comments NOT INDICATED Serum Ketones - Rads (name of study) CT chest (angio/PE study) Radiology: Prelim report reviewed, See rad report PD MEDICAL DECISION MAKING - ED course Complexity details: reviewed results, re-evaluated patient, considered differential, d/w patient ED course: mild but persistent tachycardia during ED stay and c/o dyspnea despite clear lungs and unremarkable blood tests (mild hyperglycemia noted) and thus CT chest with contrast performed; this study was interpreted as no acute findings. Patient is in NAD on arrival as well as on reevaluation prior to d/c. Departure - Departure Disposition: 01 Home, Self Care Clinical Impression: Dyspnea Qualifiers: Dyspnea type: unspecified Qualified Code(s): R06.00 - Dyspnea, unspecified Condition: Good Instructions: ED Dyspnea Shortness of Breath Follow-Up: Durga Hanley MD [Primary Care Provider] - Discharge Date/Time: 07/31/18 02:54
[2018-07-31 01:02] LABS: BASOPHILS % (AUTO) 0.4 %; EOSINOPHILS # (AUTO) 0.1 10^3/uL (0.0-0.7); EOSINOPHILS % (AUTO) 1.2 %; HGB - HEMOGLOBIN 14.2 g/dL (14.0-18.0); LYMPHOCYTES # (AUTO) 1.7 10^3/uL (1.5-3.5); LYMPHOCYTES % (AUTO) 18.7 %; MEAN CORPUSCULAR HEMOGLOBIN 30.9 pg (27.0-31.0); MEAN CORPUSCULAR HGB CONC 34.1 g/dL (32.0-36.0); MEAN CORPUSCULAR VOLUME 90.7 fL (80.0-94.0); MEAN PLATELET VOLUME 7.5 fL (7.4-11.4); MONOCYTES # (AUTO) 0.5 10^3/uL (0.0-1.0); MONOCYTES % (AUTO) 5.7 %; NEUTROPHILS # (AUTO) 6.6 10^3/uL (1.5-6.6); PLT - PLATELET COUNT 252 10^3/uL (130-450); RED CELL DISTRIBUTION WIDTH 13.1 % (12.0-15.0)
[2018-07-31 01:04] LABS: KETONES, SERUM (ACETEST) NEGATIVE (NEGATIVE)
[2018-07-31 01:12] LABS: ALBUMIN 3.8 g/dL (3.2-5.5); ALKALINE PHOSPHATASE 204 IU/L (42-121); ALT ALANINE AMINOTRANSFERASE 34 IU/L (10-60); AST ASPARTATE AMINOTRANSFERASE 33 IU/L (10-42); BILIRUBIN,TOTAL 1.1 mg/dL (0.2-1.0); BUN - BLOOD UREA NITROGEN 17 mg/dL (6-20); CALCIUM 8.8 mg/dL (8.5-10.3); CARBON DIOXIDE - CO2 23 mmol/L (21-32); CHLORIDE 95 mmol/L (101-111); CREATININE 0.9 mg/dL (0.6-1.2); GFR - MDRD 82 (>89); GLUCOSE 248 mg/dL (70-100); LIPASE 12 U/L (22-51); SODIUM 131 mmol/L (135-145); TOTAL PROTEIN 7.8 g/dL (6.7-8.2)
[2018-07-31] MEDS ORDERED: IOVERSOL 320 100 ML VIAL IVP ONE ×2 (01:28→02:17)
--- NOTE | 2018-07-31 02:16 | CT Report ---
Reason: dyspnea, tachycardia Procedure Date: 07/31/2018 Accession Number: [id number] / [id number] Procedure: CT - Chest Angio (PE) CPT Code: FULL RESULT: EXAM: CT ANGIOGRAM CHEST EXAM DATE: 07/31/2018 02:01 AM. CLINICAL HISTORY: Dyspnea, tachycardia. COMPARISON: CHEST ANGIO 06/03/2018 8:06 PM. TECHNIQUE: Routine helical imaging was performed through the chest in the pulmonary arterial phase. IV Contrast: OPTI 320 80mL. Reconstructions: Coronal 3-D MIP reconstructions.Sagittal and coronal. In accordance with CT protocol optimization, one or more of the following dose reduction techniques were utilized for this exam: automated exposure control, adjustment of mA and/or KV based on patient size, or use of iterative reconstructive technique. FINDINGS: Pulmonary Arteries: Diagnostic quality: Adequate through the segmental arteries. No evidence for acute or chronic pulmonary emboli. RV/LV is within normal limits. There is no interventricular septal bowing. There is no reflux of contrast material in the IVC. Lungs/Pleura: Minimal basilar scarring, stable. No new infiltrate, effusion, or pneumothorax. Mediastinum: Normal. No cardiac enlargement or adenopathy. Thoracic Aorta: Unremarkable. Upper Abdomen: Pneumobilia and postoperative changes of cholecystectomy. Other: None. IMPRESSION: Normal pulmonary CT angiogram. No pulmonary emboli. RADIA
[2018-07-31 02:22] LABS: BILIRUBIN,URINE NEGATIVE (NEGATIVE); GLUCOSE, URINE (UA) 100 mg/dL (NEGATIVE); KETONES,URINE (UA) 15 mg/dL (NEGATIVE); LEUKOCYTE ESTERASE, URINE NEGATIVE (NEGATIVE); NITRITE,URINE NEGATIVE (NEGATIVE); OCCULT BLOOD,URINE NEGATIVE (NEGATIVE); PH,URINE 5.5 PH (5.0-7.5); PROTEIN,URINE NEGATIVE (NEGATIVE); UROBILINOGEN,URINE 0.2 (NORMAL) E.U./dL (NORMAL)
[2018-07-31 02:24] LABS: CLARITY,URINE CLEAR (CLEAR)
[2018-07-31 02:54] VITALS: BP 109/72
== END 2018-07-31 02:54 | disposition home or self-care (01) ==
LOC: ED 00:04
DX: R06.00 Dyspnea, unspecified (principal); R00.0 Tachycardia, unspecified; I44.4 Left anterior fascicular block; E11.65 Type 2 diabetes mellitus with hyperglycemia; Z79.84 Long term (current) use of oral hypoglycemic drugs; I25.10 Atherosclerotic heart disease of native coronary artery without angina pectoris; I25.2 Old myocardial infarction; Z95.5 Presence of coronary angioplasty implant and graft; Z87.891 Personal history of nicotine dependence
CPT/HCPCS: 36415; 71275; 80053; 81003; 82009; 83690; 84484; 85025; 93005; 99283; 99284; Q9967; 81001; 87086

== ENCOUNTER 2020-10-29 20:07 | Outpatient (CLI) | payer MEDICARE, OTHER | END 2020-10-29 20:08 | disposition critical access hospital (66) | LOC: EMS 20:07 | DX: R11.0 Nausea (principal); M79.671 Pain in right foot | CPT/HCPCS: A0425; A0429 ==

== ENCOUNTER 2020-10-29 20:22 | Inpatient (IN) | payer MEDICARE, OTHER ==
[2020-10-29] MEDS ORDERED: ceFAZolin 2 GM/50 ML 2 GM/50 ML BAG IV STA (21:00)
[2020-10-29] MEDS ORDERED: SODIUM CHLORIDE 0.9% 1,000 ML IV STA ×3 (21:02→23:16)
[2020-10-29 21:09] LABS: BASOPHILS % (AUTO) 0.3 %; EOSINOPHILS # (AUTO) 0.1 10^3/uL (0.0-0.7); EOSINOPHILS % (AUTO) 0.8 %; HCT - HEMATOCRIT 48.5 % (42.0-52.0); HGB - HEMOGLOBIN 16.4 g/dL (14.0-18.0); LYMPHOCYTES # (AUTO) 0.4 10^3/uL (1.5-3.5); LYMPHOCYTES % (AUTO) 4.7 %; MEAN CORPUSCULAR HEMOGLOBIN 30.7 pg (27.0-31.0); MEAN CORPUSCULAR HGB CONC 33.8 g/dL (32.0-36.0); MEAN CORPUSCULAR VOLUME 90.8 fL (80.0-94.0); MONOCYTES # (AUTO) 0.3 10^3/uL (0.0-1.0); MONOCYTES % (AUTO) 4.6 %; NEUTROPHILS # (AUTO) 6.6 10^3/uL (1.5-6.6); NEUTROPHILS % (AUTO) 89.5 %; PLT - PLATELET COUNT 253 10^3/uL (130-450); RED BLOOD COUNT 5.34 10^6/uL (4.70-6.10); RED CELL DISTRIBUTION WIDTH 12.7 % (12.0-15.0); WHITE BLOOD COUNT 7.4 x10^3/uL (4.8-10.8)
[2020-10-29 21:19] LABS: BILIRUBIN,TOTAL 0.8 mg/dL (0.2-1.0); CALCIUM 9.2 mg/dL (8.5-10.3); CREATININE 0.9 mg/dL (0.6-1.2); POTASSIUM 3.9 mmol/L (3.5-5.0); TOTAL PROTEIN 7.9 g/dL (6.7-8.2)
--- NOTE | 2020-10-29 21:21 | ED Physician Documentation ---
History of Present Illness - Stated complaint Stated Complaint: RIGHT FOOT INFECTION/NAUSEA - Chief complaint Chief Complaint: Wound - History obtained from History obtained from: Patient - History of Present Illness Timing: Today - Additonal information Additional information: 72-year-old male with type 2 diabetes has developed some redness and tenderness to his right foot he has had some bleeding from the foot and has had some desquamation of the skin. This all started about 1 week ago and he went in to see Dr. Jara today and he was placed on some antibiotic. This afternoon he began to feel extremely fatigued and he has come to the emergency department not feeling well with cellulitis to his right foot. Review of Systems Constitutional: reports: Fatigue. denies: Fever Eyes: reports: Decreased vision (worse this week) Ears: denies: Loss of hearing, Ear pain, Drainage/discharge Nose: denies: Rhinorrhea / runny nose, Congestion Throat: denies: Dental pain / toothache, Sore throat Cardiac: denies: Chest pain / pressure, Palpitations, Pedal edema, Calf pain Respiratory: reports: Dyspnea (exertional worse over the past 3 years). denies: Cough : reports: Frequency. denies: Dysuria, Incontinent Skin: denies: Rash Musculoskeletal: reports: Extremity pain. denies: Neck pain, Back pain Neurologic: denies: Generalized weakness, Focal weakness, Numbness, Difficulty speaking, Headache, Head injury PD PAST MEDICAL HISTORY - Past Medical History Past Medical History: Yes Cardiovascular: Coronary artery disease, [place] Respiratory: None Neuro: None Endocrine/Autoimmune: Type 2 diabetes GI: GERD, Diverticulitis : Benign prostate hypertrophy HEENT: None Psych: None Musculoskeletal: Osteoarthritis Derm: None - Past Surgical History Past Surgical History: Yes General: Cholecystectomy, Bowel surgery Cardiovascular: Coronary stent - Present Medications Home Medications: Ambulatory Orders Medication Instructions Recorded Confirmed Metoprolol Tartrate [Lopressor] 25 mg PO BID 11/23/13 07/31/18 Metformin HCl 1,000 mg PO BIDWM 06/04/18 07/31/18 Pentazocine HCl/Naloxone HCl 1 tab PO .Q3-4H PRN MDD 5 TABS 06/04/18 06/04/18 [Pentazocine-Naloxone Tablet] Tamsulosin [Flomax] 0.4 mg PO DAILY 06/04/18 07/31/18 glipiZIDE [Glipizide] 5 mg PO 07/31/18 - Allergies Allergies/Adverse Reactions: Allergies Allergy/AdvReac Type Severity Reaction Status Date / Time amoxicillin trihydrate * Allergy Nausea Verified 10/29/20 20:29 [From Augmentin] potassium clavulanate * Allergy Nausea Verified 10/29/20 20:29 [From Augmentin] - Social History Does the pt smoke?: Yes Smoking Status: Current every day smoker Does the pt drink ETOH?: Yes Does the pt have substance abuse?: No - Immunizations Immunizations are current?: No Immunizations: TDAP >10years/unknown - POLST Patient has POLST: No POLST Status: Full Code PD ED PE NORMAL - Vitals Vital signs reviewed: Yes - General General: Alert and oriented X 3, Well developed/nourished, Other (80 y/o male with blunted affect of concern) - HEENT HEENT: Atraumatic, PERRL, EOMI - Neck Neck: Supple, no meningeal sign - Cardiac Cardiac: No murmur, Other (tachy to 100) - Respiratory Respiratory: No respiratory distress, Clear bilaterally - Abdomen Abdomen: Normal bowel sounds, Soft, Non tender, Non distended, No organomegaly - Back Back: No CVA TTP, No spinal TTP - Derm Derm: Normal color, Warm and dry, No rash - Extremities Extremities: Other (Over the right foot the dorsum of the foot is erythematous from the distal dorsal surface. There is a lymphangitic streak that ends in the mid dorsal foot. There is desquamation of the skin to the sole of the foot distally into the toes. There is a "good" dorsalis pedis pulse. ) - Neuro Neuro: Alert and oriented X 3, fisher clam 2-12 intact, No motor deficit, No sensory deficit, Normal speech Eye Opening: Spontaneous Motor: Obeys Commands Verbal: Oriented GCS Score: 15 - Psych Psych: Normal mood, Normal affect Results - Vitals Vitals: Vital Signs - 24 hr 10/29/20 10/29/20 10/29/20 20:29 20:35 21:28 Temperature 36.1 C L Heart Rate 102 H 96 96 Respiratory 19 14 12 Rate Blood Pressure 126/81 H 144/79 H 106/69 O2 Saturation 100 96 96 10/29/20 10/29/20 10/29/20 21:30 22:17 22:30 Temperature 36.6 C 36.6 C Heart Rate 100 94 84 Respiratory 14 17 15 Rate Blood Pressure 133/75 H 150/76 H 123/75 O2 Saturation 97 97 94 10/29/20 22:35 Temperature 36.6 C Heart Rate 94 Respiratory 15 Rate Blood Pressure 123/75 O2 Saturation 94 Oxygen O2 Source Room air - Labs Labs: Laboratory Tests 10/29/20 10/29/20 10/29/20 20:46 20:46 20:46 WBC 7.4 RBC 5.34 Hgb 16.4 Hct 48.5 MCV 90.8 MCH 30.7 MCHC 33.8 RDW 12.7 Plt Count 253 MPV 9.0 Neut # (Auto) 6.6 Lymph # (Auto) 0.4 L Door # (Auto) 0.3 Eos # (Auto) 0.1 Baso # (Auto) 0.0 Absolute Nucleated RBC 0.00 Nucleated RBC % 0.0 Sodium 133 L Potassium 3.9 Chloride 95 L Carbon Dioxide 26 Anion Gap 12.0 BUN 15 Creatinine 0.9 Estimated GFR (MDRD) 82 L Glucose 171 H Lactic Acid 1.9 Calcium 9.2 Total Bilirubin 0.8 AST 46 H ALT 40 Alkaline Phosphatase 156 H Total Protein 7.9 Albumin 4.0 Globulin 3.9 Albumin/Globulin Ratio 1.0 Urine Color Urine Clarity Urine pH Ur Specific [place] Urine Protein Urine Glucose (UA) Urine Ketones Urine Occult Blood Urine Nitrite Urine Bilirubin Urine Urobilinogen Ur Leukocyte Esterase Urine RBC Urine WBC Ur Squamous Epith Cells Urine Bacteria Urine Culture Comments Nasal Adenovirus (PCR) Nasal B. parapertussis DNA (PCR) Nasal Coronavir 229E PCR Nasal Coronavir HKU1 PCR Nasal Coronavir NL63 PCR Nasal Coronavir OC43 PCR Nasal Enterovir/Rhinovir PCR Nasal Influenza B PCR Nasal Influenza A PCR Nasal Parainfluen 1 PCR Nasal Parainfluen 2 PCR Nasal Parainfluen 3 PCR Nasal Parainfluen 4 PCR Nasal RSV (PCR) Nasal B.pertussis DNA PCR Nasal C.pneumoniae (PCR) Micha Human Metapneumo PCR Nasal M.pneumoniae (PCR) Nasal SARS-CoV-2 (PCR) 10/29/20 10/29/20 21:25 22:34 WBC RBC Hgb Hct MCV MCH MCHC RDW Plt Count MPV Neut # (Auto) Lymph # (Auto) Door # (Auto) Eos # (Auto) Baso # (Auto) Absolute Nucleated RBC Nucleated RBC % Sodium Potassium Chloride Carbon Dioxide Anion Gap BUN Creatinine Estimated GFR (MDRD) Glucose Lactic Acid Calcium Total Bilirubin AST ALT Alkaline Phosphatase Total Protein Albumin Globulin Albumin/Globulin Ratio Urine Color YELLOW Urine Clarity CLEAR Urine pH 5.5 Ur Specific [place] 1.020 Urine Protein NEGATIVE Urine Glucose (UA) NEGATIVE Urine Ketones NEGATIVE Urine Occult Blood NEGATIVE Urine Nitrite NEGATIVE Urine Bilirubin NEGATIVE Urine Urobilinogen 0.2 (NORMAL) Ur Leukocyte Esterase NEGATIVE Urine RBC None Seen Urine WBC 0-3 Ur Squamous Epith Cells NONE SEEN Urine Bacteria None Seen Urine Culture Comments NOT INDICATED Nasal Adenovirus (PCR) NOT DETECTED Nasal B. parapertussis DNA (PCR) NOT DETECTED Nasal Coronavir 229E PCR NOT DETECTED Nasal Coronavir HKU1 PCR NOT DETECTED Nasal Coronavir NL63 PCR NOT DETECTED Nasal Coronavir OC43 PCR NOT DETECTED Nasal Enterovir/Rhinovir PCR NOT DETECTED Nasal Influenza B PCR NOT DETECTED Nasal Influenza A PCR NOT DETECTED Nasal Parainfluen 1 PCR NOT DETECTED Nasal Parainfluen 2 PCR NOT DETECTED Nasal Parainfluen 3 PCR NOT DETECTED Nasal Parainfluen 4 PCR NOT DETECTED Nasal RSV (PCR) NOT DETECTED Nasal B.pertussis DNA PCR NOT DETECTED Nasal C.pneumoniae (PCR) NOT DETECTED Micha Human Metapneumo PCR NOT DETECTED Nasal M.pneumoniae (PCR) NOT DETECTED Nasal SARS-CoV-2 (PCR) NOT DETECTED - Rads (name of study) foot Radiology: Prelim report reviewed (Impression: 1. Soft tissue edema overlying the forefoot. No radiographic foreign body. No radiographic evidence of underlying osteomyelitis. 2. Mild degenerative changes of the right foot.), EMP read indepedently, See rad report Procedures - IVC sono (time) 2109 Bedside IVC sono: IVC measures (cm) (0.95), Dehydration (est 2 liters after one liter in.) PD MEDICAL DECISION MAKING - ED course Complexity details: reviewed old records, reviewed results, re-evaluated patient, considered differential, d/w patient ED course: 80-year-old male diabetic with cellulitis to his right foot has become this afternoon extremely fatigued. This has a concern for development of sepsis and the patient comes into the emergency department afebrile with tachycardia (120 in the field) and a blunted affect. We initiated sepsis protocol. Patient was administered cefazolin as he is allergic to amoxicillin. He was found to be significantly dehydrated on interrogation the inferior vena cava. His vessel was 0.95 cm in size with complete collapse after 1 L of saline has been administered. This represents approximately 3 L of deficit. IV hydration is continued the patient has normal white blood cell count and a lactate of 1.9. Imaging of the foot is without evidence of osteo. I considered out patient management of this infection and the patient did not want to go home and he was quick to answer. I suspect this is because he feels ill and the fatigue came over him this afternoon and this likely represents sepsis. Dr. Briscoe is consulted in the case and graciously agrees to admit the patient to the hospital for further care. 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
[2020-10-29 21:37] LABS: BILIRUBIN,URINE NEGATIVE (NEGATIVE); CLARITY,URINE CLEAR (CLEAR); GLUCOSE, URINE (UA) NEGATIVE (NEGATIVE); KETONES,URINE (UA) NEGATIVE (NEGATIVE); LEUKOCYTE ESTERASE, URINE NEGATIVE (NEGATIVE); NITRITE,URINE NEGATIVE (NEGATIVE); OCCULT BLOOD,URINE NEGATIVE (NEGATIVE); PH,URINE 5.5 PH (5.0-7.5); PROTEIN,URINE NEGATIVE (NEGATIVE); UROBILINOGEN,URINE 0.2 (NORMAL) E.U./dL (NORMAL)
[2020-10-29 21:43] LABS: BACTERIA,URINE None Seen /HPF (None Seen); RBC,URINE None Seen /HPF (0-5); SQUAMOUS EPITHELIAL CELL,UR NONE SEEN (<= Few); WBC,URINE 0-3 /HPF (0-3)
[2020-10-29 23:29] LABS: B. PARAPERTUSSIS- RESP PCR PAN NOT DETECTED; B. PERTUSSIS- RESP PCR PANEL NOT DETECTED; C. PNEUMONIAE- RESP PCR PANEL NOT DETECTED; CORONAVIRUS 229E-RESP PCR NOT DETECTED; CORONAVIRUS HKU1-RESP PCR NOT DETECTED; CORONAVIRUS NL63-RESP PCR NOT DETECTED; CORONAVIRUS OC43-RESP PCR NOT DETECTED; HUMAN METAPNEUMOVIRUS NOT DETECTED; INFLUENZA A- RESP PCR PANEL NOT DETECTED; INFLUENZA B - RESP PCR PANEL NOT DETECTED; M. PNEUMONIAE- RESP PCR PANEL NOT DETECTED; PARAINFLUENZA VIRUS 1 NOT DETECTED; PARAINFLUENZA VIRUS 2 NOT DETECTED; PARAINFLUENZA VIRUS 3 NOT DETECTED; PARAINFLUENZA VIRUS 4 NOT DETECTED; RHINOVIRUS/ENTEROVIRUS NOT DETECTED; RSV- RESP PCR PANEL NOT DETECTED; SARS-CoV-2 -RESP PCR PANEL NOT DETECTED
[2020-10-29] MEDS ORDERED: ONDANSETRON 4 MG/2 ML VIAL IVP PRN (23:34)
[2020-10-29] MEDS ORDERED: SODIUM CHLORIDE 0.9% 1,000 ML IV SCH (23:45)
[2020-10-30 00:01] LABS: INR 1.3 (0.8-1.2); PT - PROTHROMBIN TIME 14.2 secs (9.9-12.6)
[2020-10-30] MEDS: SODIUM CHLORIDE FLUSH 0.9% 10 ML SYRINGE IVP SCH ×3 (00:27→18:03)
--- NOTE | 2020-10-30 01:44 | HISTORY & PHYSICAL EXAMINATION ---
DATE OF SERVICE: 10/29/2020 Physician: Zenaida Briscoe MD HISTORY OF PRESENT ILLNESS: This is a 80-year-old white male with a history of coronary disease, diabetes that was diagnosed three years ago and now he is on metformin and glipizide and history of BPH. The patient was admitted here three years ago with cholecystitis. The patient presents now to a foot doctor's office complaining of a foot wound that started 4 days ago, and he was prescribed antibiotics and sent home. When he got home, he felt extremely fatigued and weak and called EMS. At the scene, his heart rate was documented at 120. In the emergency room, he presented and was still tachycardic, but had stable blood pressure. He underwent evaluation that showed normal white blood count, lactic acid that was borderline upper limits of normal at 1.9 and evidence of cellulitis of the right foot. Chest x-ray does not show osteomyelitis. ER ultrasound of the IVC showed that he is dehydrated and received IV fluids and has been started on IV antibiotics. The patient still continues to feel weak, still has tachycardia at a rate of 100 and is being admitted for management with IV fluids and IV antibiotics. PAST MEDICAL HISTORY 1. Diabetes. 2. CAD. 3. BPH. 4. History of GERD and diverticulitis, cholecystectomy and remote bowel surgery. MEDICATIONS 1. Metoprolol tartrate 25 mg b.i.d. 2. Metformin 1000 mg b.i.d. 3. Glipizide 5 mg b.i.d. 4. Flomax 0.4 mg daily. ALLERGIES 1. AMOXICILLIN. REVIEW OF SYSTEMS: There has been no fever, he denies chills, cardiopulmonary complaints or GI complaints. A comprehensive review of systems was performed and the pertinent positives are listed, the rest are negative. SOCIAL HISTORY: The patient smokes cigarettes, there is no history of alcohol abuse, but he does drink alcohol socially. No history of illicit drug use. FAMILY HISTORY: Noncontributory. PHYSICAL EXAM GENERAL: Elderly white male. He appears weak and tired. VITAL SIGNS: Blood pressure 106/69, heart rate of 96, and on further monitoring, heart rate still reaches 100. He is afebrile. Room air saturation is 96%. HEENT: Shows dry oral mucosa. NECK: No JVD. CHEST: Clear. CARDIOVASCULAR: Normal heart sounds. ABDOMEN: Soft, nontender. EXTREMITIES: Skin tear and also swelling and redness of the right dorsum of foot, behind all the toes, at the MTP joints, there is a good dorsalis pedis pulse. Legs have no edema. NEUROLOGIC: Grossly intact. LABORATORY DATA: Sodium 133, potassium 3.9, BUN 15, creatinine 0.9, glucose 171. Lactic acid 1.9, AST 46, ALT 40, alkaline phosphatase 156. White blood count 7.4, hemoglobin 16.4, platelet count 253. No INR was done. Urinalysis is unremarkable. His [employer] test was negative for COVID. Chest x-ray was not done. EKG not done. IMAGING: X-ray of the right foot showed soft tissue edema overlying the forefoot and no evidence of osteomyelitis. IMPRESSION/DIAGNOSES 1. Sepsis with elevated heart rate and evidence of an infection. 2. Cellulitis. 3. Diabetic foot infection. 4. DM type 2 5. Hyponatremia. 6. History of coronary artery disease. 7. Benign prostatic hypertrophy. 8. Tobacco use. PLAN: Admit the patient to inpatient status on telemetry. Continue his medication for BPH, metoprolol and aspirin for his CAD. Start IV antibiotics using meropenem in a patient who has ALLERGY TO AMOXICILLIN, for broad coverage in a diabetic with a foot infection. If he spikes a fever, then blood cultures will be drawn. Use pain medication if needed and topical care as directed. Begin a carbohydrate-controlled diet, sliding scale insulin coverage and continue his glipizide, but hold metformin in case of needing IV contrast use and to prevent any LUCERO while he is dehydrated. Order sliding scale insulin coverage and Accu-Cheks. IV fluids will be given at 100 mL an hour because of dehydration and hyponatremia. Follow his BMP daily. Follow his white blood count daily. DEEP VENOUS THROMBOSIS PROPHYLAXIS: Pharmacotherapy. CODE STATUS: FULL CODE. ATTESTATION: Patient is expected to be discharged or transferred to another facility within 96 hours: Yes. TD: 10/29/2020 23:55 OMA
[2020-10-30 05:10] LABS: BASOPHILS % (AUTO) 0.4 %; EOSINOPHILS # (AUTO) 0.1 10^3/uL (0.0-0.7); HCT - HEMATOCRIT 41.2 % (42.0-52.0); HGB - HEMOGLOBIN 13.6 g/dL (14.0-18.0); LYMPHOCYTES # (AUTO) 0.1 10^3/uL (1.5-3.5); LYMPHOCYTES % (AUTO) 2.9 %; MEAN CORPUSCULAR HEMOGLOBIN 30.4 pg (27.0-31.0); MEAN PLATELET VOLUME 9.2 fL (7.4-11.4); MONOCYTES # (AUTO) 0.3 10^3/uL (0.0-1.0); MONOCYTES % (AUTO) 5.1 %; NEUTROPHILS # (AUTO) 4.4 10^3/uL (1.5-6.6); NEUTROPHILS % (AUTO) 90.4 %; PLT - PLATELET COUNT 195 10^3/uL (130-450); RED BLOOD COUNT 4.48 10^6/uL (4.70-6.10); RED CELL DISTRIBUTION WIDTH 12.9 % (12.0-15.0); WHITE BLOOD COUNT 4.9 x10^3/uL (4.8-10.8)
[2020-10-30 05:16] LABS: CREATININE 0.8 mg/dL (0.6-1.2); MAGNESIUM 1.7 mg/dL (1.7-2.8); POTASSIUM 4.4 mmol/L (3.5-5.0)
[2020-10-30] MEDS ORDERED: MEROPENEM 1 GM in SODIUM CHLORIDE 0.9% MINIBAG 100 ML IV SCH (07:00)
[2020-10-30] MEDS: ENOXAPARIN 40 MG/0.4 ML SYRINGE SUBQ SCH (07:56)
[2020-10-30] MEDS: FAMOTIDINE 20 MG TABLET PO SCH ×2 (07:56→21:18)
[2020-10-30] MEDS: METOPROLOL TARTRATE 25 MG TABLET PO SCH ×2 (07:56→22:43)
[2020-10-30] MEDS: TAMSULOSIN 0.4 MG CAPSULE PO SCH (07:59)
[2020-10-30] MEDS: glipiZIDE 5 MG TABLET PO SCH ×2 (07:59→21:18)
[2020-10-30] MEDS: ASPIRIN EC 81 MG TABLET PO SCH (08:00)
[2020-10-30] MEDS: INSULIN ASPART 300 UNIT/3 ML PEN SUBQ SCH ×4 (08:07→21:31)
--- NOTE | 2020-10-30 08:24 | XRAY Report ---
PROCEDURE: Foot 3 View RT INDICATIONS: cellulits/diabetic foot TECHNIQUE: 3 views of the foot were acquired. COMPARISON: None FINDINGS: Bones: No fractures or dislocations. Mild first MTP joint and first through fifth interphalangeal j oint osteoarthritic changes are seen. No definite erosive changes or cortical destruction is noted. N o suspicious bony lesions. Soft tissues: No tibiotalar joint effusion. Achilles tendon appears normal. Vascular calcification s are noted in right foot. Mild dorsal forefoot soft tissue swelling is seen. IMPRESSION: Mild forefoot soft tissue swelling. No acute fracture or dislocation. No radiographic evidence of ost eomyelitis. Mild forefoot joint osteoarthritis. No discrepancies. Reviewed by: Saeed Lofton MD on 10/30/2020 8:23 AM PST Approved by: Saeed Lofton MD on 10/30/2020 8:23 AM [facility] [[email or web address]] Station ID: [id number]
[2020-10-30] MEDS ORDERED: oxyCODONE 5 MG TABLET PO PRN (08:38)
[2020-10-30] MEDS ORDERED: LOPERAMIDE 2 MG CAPSULE PO PRN (08:40)
[2020-10-30] MEDS: SACCHAROMYCES BOULARDII 250 MG CAPSULE PO SCH ×2 (09:18→18:03)
--- NOTE | 2020-10-30 11:04 | PHARMACY PROGRESS NOTE ---
- Best Possible Medication History Admit Date and Time: 10/29/20 3745 Processed by: Pharmacy Medication History completed: Yes Secondary Source(s): Physician records, Pharmacy records As the person ultimately responsible for medication therapy, providers are able to order a medication from an existing home medication list in [facility] via the "Reconcile Routine" prior to Confirmation of that medication by customer support engineer. Such practice is discouraged except when the physician, in their clinical judgment, deems that a medical need exists for a medication without regard to previous use.
[2020-10-30 11:34] LABS: ESTIMATED AVERAGE GLUCOSE 134 mg/dL (70-100); HEMOGLOBIN A1c% 6.3 % (4.27-6.07)
[2020-10-30] MEDS: oxyCODONE 5 MG TABLET PO PRN (11:48)
[2020-10-30] MEDS: ceFAZolin 1 GM in SODIUM CHLORIDE 0.9% MINIBAG 100 ML IV SCH ×2 (13:26→21:21)
[2020-10-30] MEDS ORDERED: GABAPENTIN 100 MG CAPSULE PO SCH (14:00)
--- NOTE | 2020-10-30 14:58 | PROVIDER PROGRESS NOTE ---
Subjective - Prog Note Date Prog Note Date: 10/30/20 - Subjective Pt reports feeling: No change Subjective: Patient initially want to sign AMA and left hospital because we do not have patient's home pain medication, he does not want to try our pain meds. pt's pain medication is off labelling, we just can not figure out what kind of medications is. after discussed with the patient, he change his mind and want to stay in the hospital for continuing treatment. He denies fever, shortness of breathing, chest pain. Current Medications - Current Medications Current Medications: Active Medications Acetaminophen (Acetaminophen 325 Mg Tablet) 650 mg PO Q4HR PRN PRN Reason: Pain or Fever > 38C (100.4F) Aspirin (Aspirin Ec 81 Mg Tablet) 81 mg PO DAILY [facility] Last Admin: 10/30/20 08:00 Dose: 81 mg Documented by: Enoxaparin Sodium (Enoxaparin 40 Mg/0.4 Ml Syringe) 40 mg SUBQ DAILY [facility] Last Admin: 10/30/20 07:56 Dose: 40 mg Documented by: Famotidine (Famotidine 20 Mg Tablet) 20 mg PO BID [facility] Last Admin: 10/30/20 07:56 Dose: 20 mg Documented by: Gabapentin (Gabapentin 100 Mg Capsule) 100 mg PO TID [facility] Last Admin: 10/30/20 13:30 Dose: 100 mg Documented by: Glipizide (Glipizide 5 Mg Tablet) 5 mg PO BID [facility] Last Admin: 10/30/20 07:59 Dose: 5 mg Documented by: Cefazolin Sodium 1 gm/ Sodium (Chloride) 100 mls @ 200 mls/hr IV Q8H [facility] Last Infusion: 10/30/20 14:23 Dose: Infused Documented by: Insulin Aspart (Insulin Aspart 300 Unit/3 Ml Pen) 1 - 5 unit SUBQ 0800,1200,1700,2100 [facility]; Protocol Last Admin: 10/30/20 11:48 Dose: Not Given Documented by: Metoprolol Tartrate (Metoprolol Tartrate 25 Mg Tablet) 25 mg PO BID [facility] Last Admin: 10/30/20 07:56 Dose: 25 mg Documented by: Ondansetron HCl (Ondansetron 4 Mg/2 Ml Vial) 4 mg IVP Q6HR PRN PRN Reason: Nausea / Vomiting Oxycodone HCl (Oxycodone 5 Mg Tablet) 10 mg PO Q6HR PRN PRN Reason: PAIN Last Admin: 10/30/20 11:48 Dose: 10 mg Documented by: Saccharomyces Boulardii (Saccharomyces Boulardii 250 Mg Capsule) 250 mg PO BIDWM [facility] Last Admin: 10/30/20 09:18 Dose: 250 mg Documented by: Sodium Chloride (Sodium Chloride Flush 0.9% 10 Ml Syringe) 10 ml IVP PRN PRN PRN Reason: NEEDED PER PROVIDER ORDERS Sodium Chloride (Sodium Chloride Flush 0.9% 10 Ml Syringe) 10 ml IVP 0100,0900,1700 [facility] Last Admin: 10/30/20 07:59 Dose: Not Given Documented by: Tamsulosin HCl (Tamsulosin 0.4 Mg Capsule) 0.4 mg PO DAILY [facility] Last Admin: 10/30/20 07:59 Dose: 0.4 mg Documented by: Metoprolol Tartrate [Lopressor] 25 mg PO BID 11/23/13 glipiZIDE [Glipizide] 5 mg PO BIDWM 07/31/18 Metformin HCl [Glucophage] 1,000 mg PO BIDWM 10/30/20 Pentazocine HCl/Naloxone HCl [Pentazocine-Naloxone Tablet] 1 tab PO Q4H PRN MDD 5 tabs 10/30/20 Objective - Vital Signs/Intake & Output Vital Signs: Vital Signs x48h Temp Pulse Resp BP BP Pulse Ox 10/30/20 11:45 36.8 C 87 20 124/58 L 98 10/30/20 08:16 37.1 C 90 20 130/72 97 10/30/20 07:56 128/66 Intake & Output: Intake & Output 10/27/20 10/28/20 10/29/20 10/30/20 23:59 23:59 23:59 23:59 Intake Total 2049 2303.33 Output Total 400 Balance 2049 1903.33 - Objective General Appearance: positive: No acute distress, Alert. negative: Lethargic Eyes Bilateral: positive: Normal inspection, PERRL, No lid inflammation ENT: positive: ENT inspection nml, No signs of dehydration. negative: Purulent nasal drainage Neck: positive: Nml inspection, Trachea midline. negative: Thyromegaly, Tracheal deviation Respiratory: positive: Chest non-tender, No respiratory distress. negative: Wheezes, Rales Cardiovascular: positive: Regular rate & rhythm, No murmur. negative: Tachycardia, Bradycardia, Systolic murmur, Diastolic murmur Peripheral Pulses: 2+ Radial (R), 2+ Radial (L), 2+ Dorsalis pedis (R), 2+ Dorsalis pedis (L) Abdomen: positive: Non-tender, Nml bowel sounds, No distention. negative: Tenderness, Guarding Back: positive: Nml inspection. negative: CVA tenderness (R), CVA tenderness (L) Skin: positive: Color nml, Warm, Dry. negative: Cyanosis, Diaphoresis, Pallor Extremities: positive: Non-tender, Other (There is skin tear, and mild swelling, Erythema at distal plantar of right foot, and behind of all toe.). negative: Calf tenderness Neurologic/Psychiatric: positive: Oriented x3, Motor nml, Sensation nml. negative: Weakness, Sensory loss, Facial droop, Slurred/abnml speech, Depressed mood/affect - Lab Results Fish Bones: 10/30/20 04:26 10/30/20 04:26 Other Labs: Lab Results x24hrs 10/30/20 10/30/20 10/30/20 Range/Units 04:26 04:26 04:26 WBC 4.9 (4.8-10.8) x10^3/uL RBC 4.48 L (4.70-6.10) 10^6/uL Hgb 13.6 L (14.0-18.0) g/dL Hct 41.2 L (42.0-52.0) % MCV 92.0 (80.0-94.0) fL MCH 30.4 (27.0-31.0) pg MCHC 33.0 (32.0-36.0) g/dL RDW 12.9 (12.0-15.0) % Plt Count 195 (130-450) 10^3/uL MPV 9.2 (7.4-11.4) fL Neut # (Auto) 4.4 (1.5-6.6) 10^3/uL Lymph # (Auto) 0.1 L (1.5-3.5) 10^3/uL [place] # (Auto) 0.3 (0.0-1.0) 10^3/uL Eos # (Auto) 0.1 (0.0-0.7) 10^3/uL Baso # (Auto) 0.0 (0.0-0.1) 10^3/uL Absolute Nucleated RBC 0.00 x10^3/uL Nucleated RBC % 0.0 /100WBC PT (9.9-12.6) secs INR (0.8-1.2) Sodium 136 (135-145) mmol/L Potassium 4.4 (3.5-5.0) mmol/L Chloride 104 (101-111) mmol/L Carbon Dioxide 22 (21-32) mmol/L Anion Gap 10.0 (6-13) BUN 16 (6-20) mg/dL Creatinine 0.8 (0.6-1.2) mg/dL Estimated GFR (MDRD) 93 (>89) Glucose 190 H (70-100) mg/dL Estimat Average Glucose 134 H (70-100) mg/dL Hemoglobin A1c % 6.3 H (4.27-6.07) % Lactic Acid (0.5-2.2) mmol/L Calcium 8.0 L (8.5-10.3) mg/dL Magnesium 1.7 (1.7-2.8) mg/dL Total Bilirubin (0.2-1.0) mg/dL AST (10-42) IU/L ALT (10-60) IU/L Alkaline Phosphatase (42-121) IU/L Total Protein (6.7-8.2) g/dL Albumin (3.2-5.5) g/dL Globulin (2.1-4.2) g/dL Albumin/Globulin Ratio (1.0-2.2) Urine Color Urine Clarity (CLEAR) Urine pH (5.0-7.5) PH Ur Specific [place] (1.002-1.030) Urine Protein (NEGATIVE) mg/dL Urine Glucose (UA) (NEGATIVE) mg/dL Urine Ketones (NEGATIVE) mg/dL Urine Occult Blood (NEGATIVE) Urine Nitrite (NEGATIVE) Urine Bilirubin (NEGATIVE) Urine Urobilinogen (NORMAL) E.U./dL Ur Leukocyte Esterase (NEGATIVE) Urine RBC (0-5) /HPF Urine WBC (0-3) /HPF Ur Squamous Epith Cells (<= Few) Urine Bacteria (None Seen) /HPF Urine Culture Comments Nasal Adenovirus (PCR) Nasal B. parapertussis DNA (PCR) Nasal Coronavir 229E PCR Nasal Coronavir HKU1 PCR Nasal Coronavir NL63 PCR Nasal Coronavir OC43 PCR Nasal Enterovir/Rhinovir PCR Nasal Influenza B PCR Nasal Influenza A PCR Nasal Parainfluen 1 PCR Nasal Parainfluen 2 PCR Nasal Parainfluen 3 PCR Nasal Parainfluen 4 PCR Nasal RSV (PCR) Nasal B.pertussis DNA PCR Nasal C.pneumoniae (PCR) Micha Human Metapneumo PCR Nasal M.pneumoniae (PCR) Nasal SARS-CoV-2 (PCR) 10/29/20 10/29/20 10/29/20 Range/Units 23:52 22:34 21:25 WBC (4.8-10.8) x10^3/uL RBC (4.70-6.10) 10^6/uL Hgb (14.0-18.0) g/dL Hct (42.0-52.0) % MCV (80.0-94.0) fL MCH (27.0-31.0) pg MCHC (32.0-36.0) g/dL RDW (12.0-15.0) % Plt Count (130-450) 10^3/uL MPV (7.4-11.4) fL Neut # (Auto) (1.5-6.6) 10^3/uL Lymph # (Auto) (1.5-3.5) 10^3/uL [place] # (Auto) (0.0-1.0) 10^3/uL Eos # (Auto) (0.0-0.7) 10^3/uL Baso # (Auto) (0.0-0.1) 10^3/uL Absolute Nucleated RBC x10^3/uL Nucleated RBC % /100WBC PT 14.2 H (9.9-12.6) secs INR 1.3 H (0.8-1.2) Sodium (135-145) mmol/L Potassium (3.5-5.0) mmol/L Chloride (101-111) mmol/L Carbon Dioxide (21-32) mmol/L Anion Gap (6-13) BUN (6-20) mg/dL Creatinine (0.6-1.2) mg/dL Estimated GFR (MDRD) (>89) Glucose (70-100) mg/dL Estimat Average Glucose (70-100) mg/dL Hemoglobin A1c % (4.27-6.07) % Lactic Acid (0.5-2.2) mmol/L Calcium (8.5-10.3) mg/dL Magnesium (1.7-2.8) mg/dL Total Bilirubin (0.2-1.0) mg/dL AST (10-42) IU/L ALT (10-60) IU/L Alkaline Phosphatase (42-121) IU/L Total Protein (6.7-8.2) g/dL Albumin (3.2-5.5) g/dL Globulin (2.1-4.2) g/dL Albumin/Globulin Ratio (1.0-2.2) Urine Color YELLOW Urine Clarity CLEAR (CLEAR) Urine pH 5.5 (5.0-7.5) PH Ur Specific [place] 1.020 (1.002-1.030) Urine Protein NEGATIVE (NEGATIVE) mg/dL Urine Glucose (UA) NEGATIVE (NEGATIVE) mg/dL Urine Ketones NEGATIVE (NEGATIVE) mg/dL Urine Occult Blood NEGATIVE (NEGATIVE) Urine Nitrite NEGATIVE (NEGATIVE) Urine Bilirubin NEGATIVE (NEGATIVE) Urine Urobilinogen 0.2 (NORMAL) (NORMAL) E.U./dL Ur Leukocyte Esterase NEGATIVE (NEGATIVE) Urine RBC None Seen (0-5) /HPF Urine WBC 0-3 (0-3) /HPF Ur Squamous Epith Cells NONE SEEN (<= Few) Urine Bacteria None Seen (None Seen) /HPF Urine Culture Comments NOT INDICATED Nasal Adenovirus (PCR) NOT DETECTED Nasal B. parapertussis DNA (PCR) NOT DETECTED Nasal Coronavir 229E PCR NOT DETECTED Nasal Coronavir HKU1 PCR NOT DETECTED Nasal Coronavir NL63 PCR NOT DETECTED Nasal Coronavir OC43 PCR NOT DETECTED Nasal Enterovir/Rhinovir PCR NOT DETECTED Nasal Influenza B PCR NOT DETECTED Nasal Influenza A PCR NOT DETECTED Nasal Parainfluen 1 PCR NOT DETECTED Nasal Parainfluen 2 PCR NOT DETECTED Nasal Parainfluen 3 PCR NOT DETECTED Nasal Parainfluen 4 PCR NOT DETECTED Nasal RSV (PCR) NOT DETECTED Nasal B.pertussis DNA PCR NOT DETECTED Nasal C.pneumoniae (PCR) NOT DETECTED Micha Human Metapneumo PCR NOT DETECTED Nasal M.pneumoniae (PCR) NOT DETECTED Nasal SARS-CoV-2 (PCR) NOT DETECTED 10/29/20 10/29/2010/29/21 Range/Units 20:46 20:46 20:46 WBC 7.4 (4.8-10.8) x10^3/uL RBC 5.34 (4.70-6.10) 10^6/uL Hgb 16.4 (14.0-18.0) g/dL Hct 48.5 (42.0-52.0) % MCV 90.8 (80.0-94.0) fL MCH 30.7 (27.0-31.0) pg MCHC 33.8 (32.0-36.0) g/dL RDW 12.7 (12.0-15.0) % Plt Count 253 (130-450) 10^3/uL MPV 9.0 (7.4-11.4) fL Neut # (Auto) 6.6 (1.5-6.6) 10^3/uL Lymph # (Auto) 0.4 L (1.5-3.5) 10^3/uL [place] # (Auto) 0.3 (0.0-1.0) 10^3/uL Eos # (Auto) 0.1 (0.0-0.7) 10^3/uL Baso # (Auto) 0.0 (0.0-0.1) 10^3/uL Absolute Nucleated RBC 0.00 x10^3/uL Nucleated RBC % 0.0 /100WBC PT (9.9-12.6) secs INR (0.8-1.2) Sodium 133 L (135-145) mmol/L Potassium 3.9 (3.5-5.0) mmol/L Chloride 95 L (101-111) mmol/L Carbon Dioxide 26 (21-32) mmol/L Anion Gap 12.0 (6-13) BUN 15 (6-20) mg/dL Creatinine 0.9 (0.6-1.2) mg/dL Estimated GFR (MDRD) 82 L (>89) Glucose 171 H (70-100) mg/dL Estimat Average Glucose (70-100) mg/dL Hemoglobin A1c % (4.27-6.07) % Lactic Acid 1.9 (0.5-2.2) mmol/L Calcium 9.2 (8.5-10.3) mg/dL Magnesium (1.7-2.8) mg/dL Total Bilirubin 0.8 (0.2-1.0) mg/dL AST 46 H (10-42) IU/L ALT 40 (10-60) IU/L Alkaline Phosphatase 156 H (42-121) IU/L Total Protein 7.9 (6.7-8.2) g/dL Albumin 4.0 (3.2-5.5) g/dL Globulin 3.9 (2.1-4.2) g/dL Albumin/Globulin Ratio 1.0 (1.0-2.2) Urine Color Urine Clarity (CLEAR) Urine pH (5.0-7.5) PH Ur Specific [place] (1.002-1.030) Urine Protein (NEGATIVE) mg/dL Urine Glucose (UA) (NEGATIVE) mg/dL Urine Ketones (NEGATIVE) mg/dL Urine Occult Blood (NEGATIVE) Urine Nitrite (NEGATIVE) Urine Bilirubin (NEGATIVE) Urine Urobilinogen (NORMAL) E.U./dL Ur Leukocyte Esterase (NEGATIVE) Urine RBC (0-5) /HPF Urine WBC (0-3) /HPF Ur Squamous Epith Cells (<= Few) Urine Bacteria (None Seen) /HPF Urine Culture Comments Nasal Adenovirus (PCR) Nasal B. parapertussis DNA (PCR) Nasal Coronavir 229E PCR Nasal Coronavir HKU1 PCR Nasal Coronavir NL63 PCR Nasal Coronavir OC43 PCR Nasal Enterovir/Rhinovir PCR Nasal Influenza B PCR Nasal Influenza A PCR Nasal Parainfluen 1 PCR Nasal Parainfluen 2 PCR Nasal Parainfluen 3 PCR Nasal Parainfluen 4 PCR Nasal RSV (PCR) Nasal B.pertussis DNA PCR Nasal C.pneumoniae (PCR) Micha Human Metapneumo PCR Nasal M.pneumoniae (PCR) Nasal SARS-CoV-2 (PCR) ABX Reporting Has patient been on IV antibiotics over the past 48 hours?: Yes Assessment/Plan - Problem List (1) Cellulitis of right foot Impression: Patient has cellulitis on plantar of right feet, X-ray show not indicated bony infection or osteomyelitis, without bone fracture or dislocation. Patient already had Ancef in the ER and tolerated. Patient has no fever, no elevated WBC, Mild forefoot soft tissue swelling. We will continue Ancef, Blood Culture is pending, We will follow up. (2) Diabetes Impression: Patient A1c is 6.3, patient has history of diabetic patient, did not take any insulin in the home. we already start slide scale, glucose is 134, will continue the same slide scale. glucose check, Hypoglycemia protocol (3) HTN (hypertension) Impression: stable, continue metoprolol (4) BPH (benign prostatic hyperplasia) Impression: stable, continue Flomax (5) Hyponatremia Impression: Resolved
[2020-10-30] MEDS: LOPERAMIDE 2 MG CAPSULE PO PRN (21:18)
[2020-10-31] MEDS: SODIUM CHLORIDE FLUSH 0.9% 10 ML SYRINGE IVP SCH ×3 (00:08→16:35)
[2020-10-31] MEDS: oxyCODONE 5 MG TABLET PO PRN ×4 (00:12→22:42)
[2020-10-31] MEDS: NICOTINE 21 MG PATCH TOP SCH ×2 (01:06→07:53)
[2020-10-31] MEDS: ceFAZolin 1 GM in SODIUM CHLORIDE 0.9% MINIBAG 100 ML IV SCH ×3 (05:54→22:10)
[2020-10-31 07:31] LABS: BASOPHILS % (AUTO) 0.6 %; EOSINOPHILS # (AUTO) 0.1 10^3/uL (0.0-0.7); EOSINOPHILS % (AUTO) 3.6 %; HCT - HEMATOCRIT 37.2 % (42.0-52.0); HGB - HEMOGLOBIN 12.4 g/dL (14.0-18.0); LYMPHOCYTES # (AUTO) 0.8 10^3/uL (1.5-3.5); LYMPHOCYTES % (AUTO) 25.5 %; MEAN CORPUSCULAR HEMOGLOBIN 30.5 pg (27.0-31.0); MEAN CORPUSCULAR HGB CONC 33.3 g/dL (32.0-36.0); MEAN CORPUSCULAR VOLUME 91.4 fL (80.0-94.0); MEAN PLATELET VOLUME 9.2 fL (7.4-11.4); MONOCYTES # (AUTO) 0.3 10^3/uL (0.0-1.0); MONOCYTES % (AUTO) 9.7 %; NEUTROPHILS % (AUTO) 60.3 %; PLT - PLATELET COUNT 171 10^3/uL (130-450); RED BLOOD COUNT 4.07 10^6/uL (4.70-6.10); WHITE BLOOD COUNT 3.3 x10^3/uL (4.8-10.8)
[2020-10-31] MEDS: glipiZIDE 5 MG TABLET PO SCH ×2 (07:51→22:06)
[2020-10-31] MEDS: FAMOTIDINE 20 MG TABLET PO SCH ×2 (07:51→22:06)
[2020-10-31] MEDS: SACCHAROMYCES BOULARDII 250 MG CAPSULE PO SCH ×2 (07:51→16:34)
[2020-10-31] MEDS: ENOXAPARIN 40 MG/0.4 ML SYRINGE SUBQ SCH (07:52)
[2020-10-31] MEDS: ASPIRIN EC 81 MG TABLET PO SCH (07:52)
[2020-10-31 07:53] LABS: CALCIUM 7.9 mg/dL (8.5-10.3); CREATININE 0.8 mg/dL (0.6-1.2); CRP - C-REACTIVE PROTEIN 2.2 mg/dL (0-1.0); POTASSIUM 3.5 mmol/L (3.5-5.0)
[2020-10-31] MEDS: TAMSULOSIN 0.4 MG CAPSULE PO SCH (07:53)
[2020-10-31] MEDS: METOPROLOL TARTRATE 25 MG TABLET PO SCH ×2 (07:55→22:06)
[2020-10-31] MEDS: INSULIN ASPART 300 UNIT/3 ML PEN SUBQ SCH ×4 (07:55→22:10)
[2020-10-31] MEDS: amLODIPine 5 MG TABLET PO SCH (08:45)
[2020-10-31] MEDS ORDERED: MIN OIL/DIMETHICON/COCONUT OIL 92 GM TUBE TOP PRN (09:00)
--- NOTE | 2020-10-31 11:41 | PROVIDER PROGRESS NOTE ---
Assessment/Plan - Problem List (1) Cellulitis of right foot Assessment/Plan: 10/31 With nurse together to check the patient infection/cellulitis, in the plantar of right distal feet there is skin tear and opened, it is likely Superficial infection. erythema and swelling is reduced. Also there is skin tear between right big toe and second toe. discussed with nurse for skin care and dress change. There is no abscess. pt has intact distal neurovascular status. At this time we do not consult with surgeon. consult with social work for MAC wound care for d/c plan continue Ancef, CRP is slight reduced, blood culture is negative. pt report his pain is better controlled, 2 out of 10. pt walked at [facility]. Patient has cellulitis on plantar of right feet, X-ray show not indicated bony infection or osteomyelitis, without bone fracture or dislocation. Patient already had Ancef in the ER and tolerated. Patient has no fever, no elevated WBC, Mild forefoot soft tissue swelling. We will continue Ancef, Blood Culture is pending, We will follow up. (2) Diabetes Impression: Patient A1c is 6.3, patient has history of diabetic patient, did not take any insulin in the home. we already start slide scale, glucose is 134, will continue the same slide scale. glucose check, Hypoglycemia protocol (3) HTN (hypertension) Impression: 10/31 pt has slight elevated BP, continue home metoprolol, add Norvasc, continue vital monitor stable, continue metoprolol (4) BPH (benign prostatic hyperplasia) Impression: stable, continue Flomax (5) Hyponatremia Impression: Resolved - Current Meds Current Meds: Current Medications Generic Name Dose Route Start Last Admin Trade Name Lynn PRN Reason Stop Dose Admin Amlodipine Besylate 5 mg 10/31/20 09:00 10/31/20 08:45 Amlodipine 5 Mg Tablet PO 5 mg DAILY MARIA DE JESUS Administration Aspirin 81 mg 10/30/20 09:00 10/31/20 07:52 Aspirin Ec 81 Mg Tablet PO 81 mg DAILY MARIA DE JESUS Administration Enoxaparin Sodium 40 mg 10/30/20 09:00 10/31/20 07:52 Enoxaparin 40 Mg/0.4 Ml Syringe SUBQ 40 mg DAILY MARIA DE JESUS Administration Famotidine 20 mg 10/30/20 09:00 10/31/20 07:51 Famotidine 20 Mg Tablet PO 20 mg BID MARIA DE JESUS Administration Glipizide 5 mg 10/30/20 09:00 10/31/20 07:51 Glipizide 5 Mg Tablet PO 5 mg BID MARIA DE JESUS Administration Cefazolin Sodium 1 gm/ Sodium 100 mls @ 200 mls/hr 10/30/20 14:00 10/31/20 06:24 Chloride IV Infused Q8H MARIA DE JESUS Infusion Insulin Aspart 1 - 5 unit 10/30/20 08:00 10/31/20 07:55 Insulin Aspart 300 Unit/3 Ml Pen SUBQ Not Given 0800,1200,1700,2100 [facility] Protocol Loperamide HCl 2 mg 10/30/20 18:09 10/30/20 21:18 Loperamide 2 Mg Capsule PO 2 mg QID PRN Administration Diarrhea Metoprolol Tartrate 25 mg 10/30/20 21:31 10/31/20 07:55 Metoprolol Tartrate 25 Mg Tablet PO 25 mg BID MARIA DE JESUS Administration Nicotine 1 patch 10/31/20 01:00 10/31/20 07:53 Nicotine 21 Mg Patch TOP 1 patch DAILY MARIA DE JESUS Administration Oxycodone HCl 10 mg 10/30/20 10:37 10/31/20 07:53 Oxycodone 5 Mg Tablet PO 10 mg Q6HR PRN Administration PAIN Saccharomyces Boulardii 250 mg 10/30/20 08:40 10/31/20 07:51 Saccharomyces Boulardii 250 Mg Capsule PO 250 mg BIDWM MARIA DE JESUS Administration Sodium Chloride 10 ml 10/30/20 01:00 10/31/20 05:55 Sodium Chloride Flush 0.9% 10 Ml Syringe IVP 10 ml 0100,0900,1700 MARIA DE JESUS Administration Tamsulosin HCl 0.4 mg 10/30/20 09:00 10/31/20 07:53 Tamsulosin 0.4 Mg Capsule PO 0.4 mg DAILY MARIA DE JESUS Administration - Lab Result Fish Bone Diagrams: 10/31/20 07:02 10/31/20 07:02 - Additional Planning My Orders: My Active Orders 10/30/20 10:37 oxyCODONE [Roxicodone] 10 mg PO Q6HR PRN 10/30/20 14:00 ceFAZolin [Ancef] 1 gm Sodium Chloride 0.9% Minibag [Normal Saline 0.9% Minibag] 100 ml IV Q8H 10/30/20 14:20 CUL,WOUND (AEROBIC) [RM] Urgent 10/30/20 18:09 Loperamide [Imodium] 2 mg PO QID PRN 10/31/20 Social Work Consult [CONS] Routine 10/31/20 09:00 amLODIPine [Norvasc] 5 mg PO DAILY 11/01/20 05:00 CRP - C-REACTIVE PROTEIN [CHEM] DAILYLAB 11/02/20 05:00 CRP - C-REACTIVE PROTEIN [CHEM] DAILYLAB 11/03/20 05:00 CRP - C-REACTIVE PROTEIN [CHEM] DAILYLAB 11/04/20 05:00 CRP - C-REACTIVE PROTEIN [CHEM] DAILYLAB Subjective - Subjective Patient Reports: Feeling Better Objective Vital Signs: Vital Signs - 24 hr 10/30/20 10/30/20 10/30/20 11:45 17:00 20:11 Temperature 36.8 C 36.6 C 36.9 C Heart Rate [ 87 64 61 Brachial] Respiratory 20 16 18 Rate Blood Pressure Blood Pressure 124/58 L 116/62 125/55 L [Left Brachial artery] Blood Pressure [Right Brachial artery] O2 Saturation 98 96 95 10/30/20 10/31/20 10/31/20 22:43 00:17 05:00 Temperature 36.5 C 36.4 C L Heart Rate [ 73 65 Brachial] Respiratory 18 16 Rate Blood Pressure 114/57 L Blood Pressure [Left Brachial artery] Blood Pressure 154/70 H 164/73 H [Right Brachial artery] O2 Saturation 97 96 10/31/20 10/31/20 07:55 08:03 Temperature 36.4 C L Heart Rate [ 73 Brachial] Respiratory 18 Rate Blood Pressure 171/69 H Blood Pressure [Left Brachial artery] Blood Pressure 164/76 H [Right Brachial artery] O2 Saturation 96 Oxygen O2 Source Room air I&O (Last 24 Hrs): Intake and Output Totals x24h 10/29/20 10/30/20 10/31/20 23:59 23:59 23:59 Intake Total 2049 2923.33 620 Output Total 400 1000 Balance 2049 2523.33 -380 General: Alert, Oriented x3, No acute distress HEENT: Atraumatic, PERRLA Neck: Supple Lymphatic: no adenopathy Neuro: Alert, Non Focal, Oriented Times 3 Cardiovascular: Regular rate, Normal S1, Normal S2 Respiratory: Chest non-tender, No respiratory distress Abdomen: Normal bowel sounds, Soft, No tenderness Extremities: Normal pulses - Results Results: Laboratory Results WBC 3.3 x10^3/uL (4.8-10.8) L 10/31/20 07:02 RBC 4.07 10^6/uL (4.70-6.10) L 10/31/20 07:02 Hgb 12.4 g/dL (14.0-18.0) L 10/31/20 07:02 Hct 37.2 % (42.0-52.0) L 10/31/20 07:02 MCV 91.4 fL (80.0-94.0) 10/31/20 07:02 MCH 30.5 pg (27.0-31.0) 10/31/20 07:02 MCHC 33.3 g/dL (32.0-36.0) 10/31/20 07:02 RDW 13.0 % (12.0-15.0) 10/31/20 07:02 Plt Count 171 10^3/uL (130-450) 10/31/20 07:02 MPV 9.2 fL (7.4-11.4) 10/31/20 07:02 Neut # (Auto) 2.0 10^3/uL (1.5-6.6) 10/31/20 07:02 Lymph # (Auto) 0.8 10^3/uL (1.5-3.5) L 10/31/20 07:02 [place] # (Auto) 0.3 10^3/uL (0.0-1.0) 10/31/20 07:02 Eos # (Auto) 0.1 10^3/uL (0.0-0.7) 10/31/20 07:02 Baso # (Auto) 0.0 10^3/uL (0.0-0.1) 10/31/20 07:02 Absolute Nucleated RBC 0.00 x10^3/uL 10/31/20 07:02 Nucleated RBC % 0.0 /100WBC 10/31/20 07:02 PT 14.2 secs (9.9-12.6) H 10/29/20 23:52 INR 1.3 (0.8-1.2) H 10/29/20 23:52 Sodium 135 mmol/L (135-145) 10/31/20 07:02 Potassium 3.5 mmol/L (3.5-5.0) 10/31/20 07:02 Chloride 104 mmol/L (101-111) 10/31/20 07:02 Carbon Dioxide 23 mmol/L (21-32) 10/31/20 07:02 Anion Gap 8.0 (6-13) 10/31/20 07:02 BUN 12 mg/dL (6-20) 10/31/20 07:02 Creatinine 0.8 mg/dL (0.6-1.2) 10/31/20 07:02 Estimated GFR (MDRD) 93 (>89) 10/31/20 07:02 Glucose 100 mg/dL (70-100) 10/31/20 07:02 Estimat Average Glucose 134 mg/dL (70-100) H 10/30/20 04:26 Hemoglobin A1c % 6.3 % (4.27-6.07) H 10/30/20 04:26 Lactic Acid 1.9 mmol/L (0.5-2.2) 10/29/20 20:46 Calcium 7.9 mg/dL (8.5-10.3) L 10/31/20 07:02 Magnesium 1.7 mg/dL (1.7-2.8) 10/30/20 04:26 Total Bilirubin 0.8 mg/dL (0.2-1.0) 10/29/20 20:46 AST 46 IU/L (10-42) H 10/29/20 20:46 ALT 40 IU/L (10-60) 10/29/20 20:46 Alkaline Phosphatase 156 IU/L (42-121) H 10/29/20 20:46 C-Reactive Protein 2.2 mg/dL (0-1.0) H 10/31/20 07:02 Total Protein 7.9 g/dL (6.7-8.2) 10/29/20 20:46 Albumin 4.0 g/dL (3.2-5.5) 10/29/20 20:46 Globulin 3.9 g/dL (2.1-4.2) 10/29/20 20:46 Albumin/Globulin Ratio 1.0 (1.0-2.2) 10/29/20 20:46 Urine Color YELLOW 10/29/20 21:25 Urine Clarity CLEAR (CLEAR) 10/29/20 21: Urine pH 5.5 PH (5.0-7.5) 10/29/20 21: Ur Specific [place] 1.020 (1.002-1.030) 10/29/20 21: Urine Protein NEGATIVE mg/dL (NEGATIVE) 10/29/20 21: Urine Glucose (UA) NEGATIVE mg/dL (NEGATIVE) 10/29/20 21: Urine Ketones NEGATIVE mg/dL (NEGATIVE) 10/29/20 21: Urine Occult Blood NEGATIVE (NEGATIVE) 10/29/20 21: Urine Nitrite NEGATIVE (NEGATIVE) 10/29/20 21: Urine Bilirubin NEGATIVE (NEGATIVE) 10/29/20 21: Urine Urobilinogen 0.2 (NORMAL) E.U./dL (NORMAL) 10/29/20 21: Ur Leukocyte Esterase NEGATIVE (NEGATIVE) 10/29/20 21: Urine RBC None Seen /HPF (0-5) 10/29/20 21: Urine WBC 0-3 /HPF (0-3) 10/29/20 21:25 Ur Squamous Epith Cells NONE SEEN (<= Few) 10/29/20 21: Urine Bacteria None Seen /HPF (None Seen) 10/29/20 21:25 Urine Culture Comments NOT INDICATED 10/29/20 21:25 Nasal Adenovirus (PCR) NOT DETECTED 10/29/20 22:34 Nasal B. parapertussis DNA (PCR) NOT DETECTED 10/29/20 22:34 Nasal Coronavir 229E PCR NOT DETECTED 10/29/20 22:34 Nasal Coronavir HKU1 PCR NOT DETECTED 10/29/20 22:34 Nasal Coronavir NL63 PCR NOT DETECTED 10/29/20 22:34 Nasal Coronavir OC43 PCR NOT DETECTED 10/29/20 22:34 Nasal Enterovir/Rhinovir PCR NOT DETECTED 10/29/20 22:34 Nasal Influenza B PCR NOT DETECTED 10/29/20 22:34 Nasal Influenza A PCR NOT DETECTED 10/29/20 22:34 Nasal Parainfluen 1 PCR NOT DETECTED 10/29/20 22:34 Nasal Parainfluen 2 PCR NOT DETECTED 10/29/20 22:34 Nasal Parainfluen 3 PCR NOT DETECTED 10/29/20 22:34 Nasal Parainfluen 4 PCR NOT DETECTED 10/29/20 22:34 Nasal RSV (PCR) NOT DETECTED 10/29/20 22:34 Nasal B.pertussis DNA PCR NOT DETECTED 10/29/20 22:34 Nasal C.pneumoniae (PCR) NOT DETECTED 10/29/20 22:34 Micha Human Metapneumo PCR NOT DETECTED 10/29/20 22:34 Nasal M.pneumoniae (PCR) NOT DETECTED 10/29/20 22:34 Nasal SARS-CoV-2 (PCR) NOT DETECTED 10/29/20 22:34 Stl C. diff Tox B Gene NEGATIVE (NEGATIVE) 10/30/20 09:45 ABX Reporting Has patient been on IV antibiotics over the past 48 hours?: Yes Current Medications - Current Medications Current Medications: Active Medications Acetaminophen (Acetaminophen 325 Mg Tablet) 650 mg PO Q4HR PRN PRN Reason: Pain or Fever > 38C (100.4F) Amlodipine Besylate (Amlodipine 5 Mg Tablet) 5 mg PO DAILY [facility] Last Admin: 10/31/20 08:45 Dose: 5 mg Documented by: Aspirin (Aspirin Ec 81 Mg Tablet) 81 mg PO DAILY [facility] Last Admin: 10/31/20 07:52 Dose: 81 mg Documented by: Enoxaparin Sodium (Enoxaparin 40 Mg/0.4 Ml Syringe) 40 mg SUBQ DAILY [facility] Last Admin: 10/31/20 07:52 Dose: 40 mg Documented by: Famotidine (Famotidine 20 Mg Tablet) 20 mg PO BID [facility] Last Admin: 10/31/20 07:51 Dose: 20 mg Documented by: Glipizide (Glipizide 5 Mg Tablet) 5 mg PO BID [facility] Last Admin: 10/31/20 07:51 Dose: 5 mg Documented by: Cefazolin Sodium 1 gm/ Sodium (Chloride) 100 mls @ 200 mls/hr IV Q8H [facility] Last Infusion: 10/31/20 06:24 Dose: Infused Documented by: Insulin Aspart (Insulin Aspart 300 Unit/3 Ml Pen) 1 - 5 unit SUBQ 0800,1200,1700,2100 [facility]; Protocol Last Admin: 10/31/20 11:37 Dose: Not Given Documented by: Loperamide HCl (Loperamide 2 Mg Capsule) 2 mg PO QID PRN PRN Reason: Diarrhea Last Admin: 10/30/20 21:18 Dose: 2 mg Documented by: Metoprolol Tartrate (Metoprolol Tartrate 25 Mg Tablet) 25 mg PO BID [facility] Last Admin: 10/31/20 07:55 Dose: 25 mg Documented by: Mineral Oil (Min Oil/Dimethicon/Coconut Oil 92 Gm Tube) 1 applic TOP PRN PRN PRN Reason: Skin Care Nicotine (Nicotine 21 Mg Patch) 1 patch TOP DAILY [facility] Last Admin: 10/31/20 07:53 Dose: 1 patch Documented by: Ondansetron HCl (Ondansetron 4 Mg/2 Ml Vial) 4 mg IVP Q6HR PRN PRN Reason: Nausea / Vomiting Oxycodone HCl (Oxycodone 5 Mg Tablet) 10 mg PO Q6HR PRN PRN Reason: PAIN Last Admin: 10/31/20 07:53 Dose: 10 mg Documented by: Saccharomyces Boulardii (Saccharomyces Boulardii 250 Mg Capsule) 250 mg PO BIDWM [facility] Last Admin: 10/31/20 07:51 Dose: 250 mg Documented by: Sodium Chloride (Sodium Chloride Flush 0.9% 10 Ml Syringe) 10 ml IVP PRN PRN PRN Reason: NEEDED PER PROVIDER ORDERS Sodium Chloride (Sodium Chloride Flush 0.9% 10 Ml Syringe) 10 ml IVP 0100,0900,1700 [facility] Last Admin: 10/31/20 05:55 Dose: 10 ml Documented by: Tamsulosin HCl (Tamsulosin 0.4 Mg Capsule) 0.4 mg PO DAILY [facility] Last Admin: 10/31/20 07:53 Dose: 0.4 mg Documented by: Metoprolol Tartrate [Lopressor] 25 mg PO BID 11/23/13 glipiZIDE [Glipizide] 5 mg PO BIDWM 07/31/18 Metformin HCl [Glucophage] 1,000 mg PO BIDWM 10/30/20 Pentazocine HCl/Naloxone HCl [Pentazocine-Naloxone Tablet] 1 tab PO Q4H PRN MDD 5 tabs 10/30/20
[2020-11-01] MEDS: SODIUM CHLORIDE FLUSH 0.9% 10 ML SYRINGE IVP SCH ×4 (00:18→23:23)
[2020-11-01 05:01] LABS: BASOPHILS % (AUTO) 0.7 %; EOSINOPHILS # (AUTO) 0.1 10^3/uL (0.0-0.7); EOSINOPHILS % (AUTO) 3.1 %; HCT - HEMATOCRIT 38.8 % (42.0-52.0); HGB - HEMOGLOBIN 12.9 g/dL (14.0-18.0); LYMPHOCYTES # (AUTO) 1.2 10^3/uL (1.5-3.5); LYMPHOCYTES % (AUTO) 28.4 %; MEAN CORPUSCULAR HEMOGLOBIN 30.1 pg (27.0-31.0); MEAN CORPUSCULAR HGB CONC 33.2 g/dL (32.0-36.0); MEAN CORPUSCULAR VOLUME 90.4 fL (80.0-94.0); MEAN PLATELET VOLUME 8.6 fL (7.4-11.4); MONOCYTES # (AUTO) 0.3 10^3/uL (0.0-1.0); MONOCYTES % (AUTO) 5.9 %; NEUTROPHILS # (AUTO) 2.6 10^3/uL (1.5-6.6); NEUTROPHILS % (AUTO) 61.4 %; PLT - PLATELET COUNT 186 10^3/uL (130-450); RED BLOOD COUNT 4.29 10^6/uL (4.70-6.10); RED CELL DISTRIBUTION WIDTH 12.7 % (12.0-15.0); WHITE BLOOD COUNT 4.2 x10^3/uL (4.8-10.8)
[2020-11-01 05:18] LABS: CALCIUM 8.2 mg/dL (8.5-10.3); CREATININE 0.7 mg/dL (0.6-1.2); CRP - C-REACTIVE PROTEIN 1.3 mg/dL (0-1.0); POTASSIUM 3.4 mmol/L (3.5-5.0)
[2020-11-01] MEDS: oxyCODONE 5 MG TABLET PO PRN ×4 (06:04→23:50)
[2020-11-01] MEDS: ceFAZolin 1 GM in SODIUM CHLORIDE 0.9% MINIBAG 100 ML IV SCH ×3 (06:04→23:24)
[2020-11-01] MEDS: ACETAMINOPHEN 325 MG TABLET PO PRN ×4 (06:05→23:50)
[2020-11-01] MEDS: SODIUM CHLORIDE FLUSH 0.9% 10 ML SYRINGE IVP PRN (06:05)
[2020-11-01] MEDS ORDERED: POTASSIUM CHLORIDE 20 MEQ TABLET PO ONE (07:59)
--- NOTE | 2020-11-01 08:01 | PROVIDER PROGRESS NOTE ---
Assessment/Plan - Problem List (1) Cellulitis of right foot Assessment/Plan: WBC today was 4.2. Up from 3.3 yesterday Patient is on cephazolin Wound culture grew Staph aureus. 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 Anticipate discharge in 1 day (2) Diabetes Qualifiers: Diabetes mellitus type: type 2 Assessment/Plan: HgA1c was 6.3 On glipizide 5mg po bid Accu checks qACHS. SSI (3) HTN (hypertension) Assessment/Plan: On amlodipine and metoprolol (4) BPH (benign prostatic hyperplasia) Qualifiers: Lower urinary tract symptom presence: symptoms present Assessment/Plan: On tamsulosin - Current Meds Current Meds: Current Medications Generic Name Dose Route Start Last Admin Trade Name Freq PRN Reason Stop Dose Admin Acetaminophen 650 mg 10/29/20 23:34 11/01/20 06:05 Acetaminophen 325 Mg Tablet PO 650 mg Q4HR PRN Administration Pain or Fever > 38C (100.4F) Amlodipine Besylate 5 mg 10/31/20 09:00 10/31/20 08:45 Amlodipine 5 Mg Tablet PO 5 mg DAILY MARIA DE JESUS Administration Aspirin 81 mg 10/30/20 09:00 10/31/20 07:52 Aspirin Ec 81 Mg Tablet PO 81 mg DAILY MARIA DE JESUS Administration Enoxaparin Sodium 40 mg 10/30/20 09:00 10/31/20 07:52 Enoxaparin 40 Mg/0.4 Ml Syringe SUBQ 40 mg DAILY MARIA DE JESUS Administration Famotidine 20 mg 10/30/20 09:00 10/31/20 22:06 Famotidine 20 Mg Tablet PO 20 mg BID MARIA DE JESUS Administration Glipizide 5 mg 10/30/20 09:00 10/31/20 22:06 Glipizide 5 Mg Tablet PO 5 mg BID MARIA DE JESUS Administration Cefazolin Sodium 1 gm/ Sodium 100 mls @ 200 mls/hr 10/30/20 14:00 11/01/20 07:44 Chloride IV Infused Q8H MARIA DE JESUS Infusion Insulin Aspart 1 - 5 unit 10/30/20 08:00 10/31/20 22:10 Insulin Aspart 300 Unit/3 Ml Pen SUBQ Not Given 0800,1200,1700,2100 [facility] Protocol Loperamide HCl 2 mg 10/30/20 18:09 10/30/20 21:18 Loperamide 2 Mg Capsule PO 2 mg QID PRN Administration Diarrhea Metoprolol Tartrate 25 mg 10/30/20 21:31 10/31/20 22:06 Metoprolol Tartrate 25 Mg Tablet PO 25 mg BID MARIA DE JESUS Administration Nicotine 1 patch 10/31/20 01:00 10/31/20 07:53 Nicotine 21 Mg Patch TOP 1 patch DAILY MARIA DE JESUS Administration Oxycodone HCl 10 mg 10/30/20 10:37 11/01/20 06:04 Oxycodone 5 Mg Tablet PO 10 mg Q6HR PRN Administration PAIN Saccharomyces Boulardii 250 mg 10/30/20 08:40 10/31/20 16:34 Saccharomyces Boulardii 250 Mg Capsule PO 250 mg BIDWM MARIA DE JESUS Administration Sodium Chloride 10 ml 10/29/20 23:34 11/01/20 06:05 Sodium Chloride Flush 0.9% 10 Ml Syringe IVP 10 ml PRN PRN Administration NEEDED PER PROVIDER ORDERS Sodium Chloride 10 ml 10/30/20 01:00 11/01/20 00:18 Sodium Chloride Flush 0.9% 10 Ml Syringe IVP 10 ml 0100,0900,1700 MARIA DE JESUS Administration Tamsulosin HCl 0.4 mg 10/30/20 09:00 10/31/20 07:53 Tamsulosin 0.4 Mg Capsule PO 0.4 mg DAILY MARIA DE JESUS Administration - Lab Result Fish Bone Diagrams: 11/01/20 04:50 11/01/20 04:50 - Additional Planning My Orders: My Active Orders 11/01/20 07:59 Potassium Chloride [K-Dur] 40 meq PO ONCE ONE Subjective - Subjective Patient Reports: Other (Patient resting comfortably in bed. He denied any significant complaints. He rates his pain 4 out of 10. Right foot is currently wrapped in bandage) Objective Vital Signs: Vital Signs - 24 hr 10/31/20 10/31/20 10/31/20 07:55 08:03 11:55 Temperature 36.4 C L 36.4 C L Heart Rate [ 73 57 L Brachial] Respiratory 18 16 Rate Blood Pressure 171/69 H Blood Pressure 164/76 H 125/64 [Right Brachial artery] O2 Saturation 96 98 10/31/20 10/31/20 10/31/20 17:00 19:45 22:06 Temperature 36.7 C 36.5 C Heart Rate [ 81 75 Brachial] Respiratory 16 16 Rate Blood Pressure 138/61 H Blood Pressure 144/65 H 135/65 H [Right Brachial artery] O2 Saturation 95 95 11/01/20 11/01/20 11/01/20 00:06 04:45 07:55 Temperature 36.5 C 36.4 C L 36.6 C Heart Rate [ 64 70 70 Brachial] Respiratory 16 16 18 Rate Blood Pressure Blood Pressure 139/69 H 153/72 H 154/66 H [Right Brachial artery] O2 Saturation 96 97 96 Oxygen O2 Source Room air I&O (Last 24 Hrs): Intake and Output Totals x24h 10/30/20 10/31/20 11/02/20 23:59 23:59 00:59 Intake Total 2923.33 1360 100 Output Total 400 1750 400 Balance 2523.33 -390 -300 General: Alert, Oriented x3, Cooperative, Mild distress HEENT: PERRLA, EOMI Neck: Supple, No JVD Neuro: Alert, Non Focal, Oriented Times 3 Cardiovascular: Regular rate, Normal S1, Normal S2 Respiratory: Chest non-tender, No respiratory distress, Breath sounds nml Abdomen: Normal bowel sounds, Soft, No tenderness Extremities: Other (right foot wrapped in bandage. Wound appreciable. No bleeding) Skin: No rashes - Results Results: Laboratory Results WBC 4.2 x10^3/uL (4.8-10.8) L 11/01/20 04:50 RBC 4.29 10^6/uL (4.70-6.10) L 11/01/20 04:50 Hgb 12.9 g/dL (14.0-18.0) L 11/01/20 04:50 Hct 38.8 % (42.0-52.0) L 11/01/20 04:50 MCV 90.4 fL (80.0-94.0) 11/01/20 04:50 MCH 30.1 pg (27.0-31.0) 11/01/20 04:50 MCHC 33.2 g/dL (32.0-36.0) 11/01/20 04:50 RDW 12.7 % (12.0-15.0) 11/01/20 04:50 Plt Count 186 10^3/uL (130-450) 11/01/20 04:50 MPV 8.6 fL (7.4-11.4) 11/01/20 04:50 Neut # (Auto) 2.6 10^3/uL (1.5-6.6) 11/01/20 04:50 Lymph # (Auto) 1.2 10^3/uL (1.5-3.5) L 11/01/20 04:50 [place] # (Auto) 0.3 10^3/uL (0.0-1.0) 11/01/20 04:50 Eos # (Auto) 0.1 10^3/uL (0.0-0.7) 11/01/20 04:50 Baso # (Auto) 0.0 10^3/uL (0.0-0.1) 11/01/20 04:50 Absolute Nucleated RBC 0.00 x10^3/uL 11/01/20 04:50 Nucleated RBC % 0.0 /100WBC 11/01/20 04:50 PT 14.2 secs (9.9-12.6) H 10/29/20 23:52 INR 1.3 (0.8-1.2) H 10/29/20 23:52 Sodium 133 mmol/L (135-145) L 11/01/20 04:50 Potassium 3.4 mmol/L (3.5-5.0) L 11/01/20 04:50 Chloride 99 mmol/L (101-111) L 11/01/20 04:50 Carbon Dioxide 23 mmol/L (21-32) 11/01/20 04:50 Anion Gap 11.0 (6-13) 11/01/20 04:50 BUN 11 mg/dL (6-20) 11/01/20 04:50 Creatinine 0.7 mg/dL (0.6-1.2) 11/01/20 04:50 Estimated GFR (MDRD) 109 (>89) 11/01/20 04:50 Glucose 95 mg/dL (70-100) 11/01/20 04:50 Estimat Average Glucose 134 mg/dL (70-100) H 10/30/20 04:26 Hemoglobin A1c % 6.3 % (4.27-6.07) H 10/30/20 04:26 Lactic Acid 1.9 mmol/L (0.5-2.2) 10/29/20 20:46 Calcium 8.2 mg/dL (8.5-10.3) L 11/01/20 04:50 Magnesium 1.7 mg/dL (1.7-2.8) 10/30/20 04:26 Total Bilirubin 0.8 mg/dL (0.2-1.0) 10/29/20 20:46 AST 46 IU/L (10-42) H 10/29/20 20:46 ALT 40 IU/L (10-60) 10/29/20 20:46 Alkaline Phosphatase 156 IU/L (42-121) H 10/29/20 20:46 C-Reactive Protein 1.3 mg/dL (0-1.0) H 11/01/20 04:50 Total Protein 7.9 g/dL (6.7-8.2) 10/29/20 20:46 Albumin 4.0 g/dL (3.2-5.5) 10/29/20 20:46 Globulin 3.9 g/dL (2.1-4.2) 10/29/20 20:46 Albumin/Globulin Ratio 1.0 (1.0-2.2) 10/29/20 20:46 Urine Color YELLOW 10/29/20 21:25 Urine Clarity CLEAR (CLEAR) 10/29/20 21:25 Urine pH 5.5 PH (5.0-7.5) 10/29/20 21:25 Ur Specific [place] 1.020 (1.002-1.030) 10/29/20 21:25 Urine Protein NEGATIVE mg/dL (NEGATIVE) 10/29/20 21:25 Urine Glucose (UA) NEGATIVE mg/dL (NEGATIVE) 10/29/20 21:25 Urine Ketones NEGATIVE mg/dL (NEGATIVE) 10/29/20 21:25 Urine Occult Blood NEGATIVE (NEGATIVE) 10/29/20 21:25 Urine Nitrite NEGATIVE (NEGATIVE) 10/29/20 21:25 Urine Bilirubin NEGATIVE (NEGATIVE) 10/29/20 21:25 Urine Urobilinogen 0.2 (NORMAL) E.U./dL (NORMAL) 10/29/20 21:25 Ur Leukocyte Esterase NEGATIVE (NEGATIVE) 10/29/20 21:25 Urine RBC None Seen /HPF (0-5) 10/29/20 21:25 Urine WBC 0-3 /HPF (0-3) 10/29/20 21:25 Ur Squamous Epith Cells NONE SEEN (<= Few) 10/29/20 21:25 Urine Bacteria None Seen /HPF (None Seen) 10/29/20 21:25 Urine Culture Comments NOT INDICATED 10/29/20 21:25 Nasal Adenovirus (PCR) NOT DETECTED 10/29/20 22:34 Nasal B. parapertussis DNA (PCR) NOT DETECTED 10/29/20 22:34 Nasal Coronavir 229E PCR NOT DETECTED 10/29/20 22:34 Nasal Coronavir HKU1 PCR NOT DETECTED 10/29/20 22:34 Nasal Coronavir NL63 PCR NOT DETECTED 10/29/20 22:34 Nasal Coronavir OC43 PCR NOT DETECTED 10/29/20 22:34 Nasal Enterovir/Rhinovir PCR NOT DETECTED 10/29/20 22:34 Nasal Influenza B PCR NOT DETECTED 10/29/20 22:34 Nasal Influenza A PCR NOT DETECTED 10/29/20 22:34 Nasal Parainfluen 1 PCR NOT DETECTED 10/29/20 22:34 Nasal Parainfluen 2 PCR NOT DETECTED 10/29/20 22:34 Nasal Parainfluen 3 PCR NOT DETECTED 10/29/20 22:34 Nasal Parainfluen 4 PCR NOT DETECTED 10/29/20 22:34 Nasal RSV (PCR) NOT DETECTED 10/29/20 22:34 Nasal B.pertussis DNA PCR NOT DETECTED 10/29/20 22:34 Nasal C.pneumoniae (PCR) NOT DETECTED 10/29/20 22:34 Micha Human Metapneumo PCR NOT DETECTED 10/29/20 22:34 Nasal M.pneumoniae (PCR) NOT DETECTED 10/29/20 22:34 Nasal SARS-CoV-2 (PCR) NOT DETECTED 10/29/20 22:34 Stl C. diff Tox B Gene NEGATIVE (NEGATIVE) 10/30/20 09:45 ABX Reporting Has patient been on IV antibiotics over the past 48 hours?: Yes
[2020-11-01] MEDS: TAMSULOSIN 0.4 MG CAPSULE PO SCH (09:06)
[2020-11-01] MEDS: FAMOTIDINE 20 MG TABLET PO SCH ×2 (09:06→20:41)
[2020-11-01] MEDS: glipiZIDE 5 MG TABLET PO SCH ×2 (09:06→20:42)
[2020-11-01] MEDS: INSULIN ASPART 300 UNIT/3 ML PEN SUBQ SCH ×4 (09:06→20:42)
[2020-11-01] MEDS: LOPERAMIDE 2 MG CAPSULE PO PRN (09:06)
[2020-11-01] MEDS: SACCHAROMYCES BOULARDII 250 MG CAPSULE PO SCH ×2 (09:06→17:44)
[2020-11-01] MEDS: METOPROLOL TARTRATE 25 MG TABLET PO SCH ×2 (09:07→20:41)
[2020-11-01] MEDS: NICOTINE 21 MG PATCH TOP SCH (09:07)
[2020-11-01] MEDS: amLODIPine 5 MG TABLET PO SCH (09:07)
[2020-11-01] MEDS: ENOXAPARIN 40 MG/0.4 ML SYRINGE SUBQ SCH (09:07)
[2020-11-01] MEDS: ASPIRIN EC 81 MG TABLET PO SCH (09:07)
[2020-11-01] MEDS ORDERED: BACITRACIN ZINC OINT 1 PACKET TOP PRN (15:00)
[2020-11-02] MEDS: SODIUM CHLORIDE FLUSH 0.9% 10 ML SYRINGE IVP PRN ×2 (00:01→05:55)
[2020-11-02] MEDS: LOPERAMIDE 2 MG CAPSULE PO PRN (04:09)
[2020-11-02] MEDS: ACETAMINOPHEN 325 MG TABLET PO PRN (05:45)
[2020-11-02] MEDS: oxyCODONE 5 MG TABLET PO PRN (05:45)
[2020-11-02] MEDS: ceFAZolin 1 GM in SODIUM CHLORIDE 0.9% MINIBAG 100 ML IV SCH (06:04)
[2020-11-02 07:49] LABS: BASOPHILS % (AUTO) 0.5 %; EOSINOPHILS # (AUTO) 0.1 10^3/uL (0.0-0.7); EOSINOPHILS % (AUTO) 2.2 %; HCT - HEMATOCRIT 37.4 % (42.0-52.0); HGB - HEMOGLOBIN 12.8 g/dL (14.0-18.0); LYMPHOCYTES # (AUTO) 0.9 10^3/uL (1.5-3.5); MEAN CORPUSCULAR HEMOGLOBIN 30.5 pg (27.0-31.0); MEAN CORPUSCULAR HGB CONC 34.2 g/dL (32.0-36.0); MEAN CORPUSCULAR VOLUME 89.3 fL (80.0-94.0); MEAN PLATELET VOLUME 8.5 fL (7.4-11.4); MONOCYTES # (AUTO) 0.4 10^3/uL (0.0-1.0); MONOCYTES % (AUTO) 8.6 %; NEUTROPHILS # (AUTO) 2.7 10^3/uL (1.5-6.6); NEUTROPHILS % (AUTO) 65.5 %; PLT - PLATELET COUNT 169 10^3/uL (130-450); RED BLOOD COUNT 4.19 10^6/uL (4.70-6.10); RED CELL DISTRIBUTION WIDTH 12.4 % (12.0-15.0); WHITE BLOOD COUNT 4.1 x10^3/uL (4.8-10.8)
--- NOTE | 2020-11-02 07:50 | Discharge Plan ---
Discharge Plan Problem Reviewed?: Yes Disposition: Home, Self Care Condition: Stable Prescriptions: Doxycycline Monohydrate 150 mg PO BID 7 Days #14 tablet Diet: Diabetic Activity Restrictions: Activity as Tolerated Health Concerns: You were admitted with right foot cellulitis due to a wound infection. You had been on Keflex and amoxicillin at home. When you came to the hospital you were treated with cefazolin IV antibiotic. The wound cultures grew staph aureus. You are being placed on doxycycline 150mg po to take 1 tablet in the morning and 1 in the evening for 7 days You are to follow up with your web master in [place]. Return for Evaluation if you start having a fever again or feeling significantly weak. The above was explained to you and you are in agreement with the plan and expressed understanding. Plan of Treatment: You were admitted with right foot cellulitis due to a wound infection. You had been on Keflex and amoxicillin at home. When you came to the hospital you were treated with cefazolin IV antibiotic. The wound cultures grew staph aureus. You are being placed on doxycycline 150mg po to take 1 tablet in the morning and 1 in the evening for 7 days You are to follow up with your web master in [place]. Return for Evaluation if you start having a fever again or feeling significantly weak. The above was explained to you and you are in agreement with the plan and expressed understanding. Care Goals: You were admitted with right foot cellulitis due to a wound infection. You had been on Keflex and amoxicillin at home. When you came to the hospital you were treated with cefazolin IV antibiotic. The wound cultures grew staph aureus. You are being placed on doxycycline 150mg po to take 1 tablet in the morning and 1 in the evening for 7 days You are to follow up with your web master in [place]. Return for Evaluation if you start having a fever again or feeling significantly weak. The above was explained to you and you are in agreement with the plan and expressed understanding. Assessment: You were admitted with right foot cellulitis due to a wound infection. You had been on Keflex and amoxicillin at home. When you came to the hospital you were treated with cefazolin IV antibiotic. The wound cultures grew staph aureus. You are being placed on doxycycline 150mg po to take 1 tablet in the morning and 1 in the evening for 7 days You are to follow up with your web master in [place]. Return for Evaluation if you start having a fever again or feeling significantly weak. The above was explained to you and you are in agreement with the plan and expressed understanding. Additional Instructions or Follow Up instructions: Follow up with your web master in [place] for wound care No Smoking: If you smoke, Please STOP! Call for help. Follow-up with: Durga Hanley MD [Primary Care Provider] -
--- NOTE | 2020-11-02 07:50 | DISCHARGE SUMMARY ---
Discharge Summary Admit Date: 10/29/20 Discharge Date: 11/02/20 Discharging Provider: Parul Newsome Primary Care Provider: Durga Hanley Code Status: Attempt Resuscitation Condition at Discharge: Stable Discharge Disposition: 01 Home, Self Care - DIAGNOSES Admission Diagnoses: Sepsis with elevated heart rate and evidence of an infection Cellulitis Diabetic foot infection Diabetes mellitus type 2 Hyponatremia History of coronary artery disease Benign prostatic hypertrophy Tobacco use Discharge Diagnoses with Status of Each Condition: Cellulitis of right foot: Acute. Improved/Resolved Diabetic foot infection: Acute. Staph aureus grew on wound cultures Diabetes mellitus type 2: Chronic Hyponatremia: Resolved History of coronary artery disease: Chronic Benign prostatic hypertrophy: Chronic Tobacco use: Chronic - HPI History of Present Illness: Patient is a 80-year-old male with history of coronary artery disease, diabetes mellitus diagnosed 3 years ago on Metformin and glipizide and BPH. He presented to the ED with complaint of a foot wound that started 4 days prior. He was pr escribed Keflex and amoxicillin it appears he only took it for a day. When he arrived home he felt extremely fatigued and weak so he called EMS. Upon arrival EMS noted that his heart rate was in the 120s. He was still tachycardic in the ED but had stable blood pressures. His white count and lactic acid were found to be normal. He was thought to be dehydrated in the ED. He had an x-ray of the foot which was negative for osteomyelitis. He was admitted for pain management and IV antibiotics. He was started on cefazolin. This was maintained throughout his hospital stay. His hospital stay was largely unremarkable. He was in the hospital for a total of 4 days. Blood cultures obtained at time of admission were no growth to date by the day of discharge. Wound cultures grew staph aureus. Patient was discharged home with doxycycline 150 mg p.o. twice daily x7 days. He is expected to follow-up with his sander hand as planned. - ALLERGIES Allergies/Adverse Reactions: Allergies Allergy/AdvReac Type Severity Reaction Status Date / Time amoxicillin trihydrate * AdvReac Nausea Verified 10/30/20 08:56 [From Augmentin] potassium clavulanate * AdvReac Nausea Verified 10/30/20 08:56 [From Augmentin] - MEDICATIONS Home Medications: Ambulatory Orders Medication Instructions Recorded Confirmed Metoprolol Tartrate [Lopressor] 25 mg PO BID 11/23/13 10/30/20 glipiZIDE [Glipizide] 5 mg PO BIDWM 07/31/18 10/30/20 Metformin HCl [Glucophage] 1,000 mg PO BIDWM 10/30/20 10/30/20 Pentazocine HCl/Naloxone HCl 1 tab PO Q4H PRN MDD 5 tabs 10/30/20 10/30/20 [Pentazocine-Naloxone Tablet] Doxycycline Monohydrate 150 mg PO BID 7 Days #14 tablet 11/02/20 - PHYSICAL EXAM AT DISCHARGE General Appearance: positive: Alert, Mild distress, Moderate distress Eyes Bilateral: positive: PERRL, EOMI ENT: positive: No signs of dehydration Neck: positive: No JVD, Trachea midline Respiratory: positive: Chest non-tender, No respiratory distress, Breath sounds nml Cardiovascular: positive: Regular rate & rhythm Abdomen: positive: Non-tender, Nml bowel sounds, No distention, Tenderness. negative: Guarding, Rebound Back: positive: Nml inspection Skin: positive: Warm, Other (redness on dorsum of right foot markedly improved) Extremities: positive: No pedal edema, Other (Wound on right foot appreciable.) Neurologic/Psychiatric: positive: Oriented x3, Mood/affect nml - LABS Result Diagrams: 11/02/20 07:45 11/02/20 07:45 - FOLLOW UP Follow Up: Follow up with sander hand in [place] - TIME SPENT Time Spent in Discharge (Minutes): 20
[2020-11-02 07:52] VITALS: BP 148/62
[2020-11-02 07:59] LABS: CALCIUM 8.1 mg/dL (8.5-10.3); CREATININE 0.7 mg/dL (0.6-1.2); POTASSIUM 3.6 mmol/L (3.5-5.0)
[2020-11-02] MEDS: SACCHAROMYCES BOULARDII 250 MG CAPSULE PO SCH (08:51)
[2020-11-02] MEDS: INSULIN ASPART 300 UNIT/3 ML PEN SUBQ SCH (08:51)
[2020-11-02] MEDS: NICOTINE 21 MG PATCH TOP SCH (08:52)
[2020-11-02] MEDS: METOPROLOL TARTRATE 25 MG TABLET PO SCH (08:52)
[2020-11-02] MEDS: TAMSULOSIN 0.4 MG CAPSULE PO SCH (08:52)
[2020-11-02] MEDS: SODIUM CHLORIDE FLUSH 0.9% 10 ML SYRINGE IVP SCH (08:52)
[2020-11-02] MEDS: amLODIPine 5 MG TABLET PO SCH (08:52)
[2020-11-02] MEDS: ASPIRIN EC 81 MG TABLET PO SCH (08:52)
[2020-11-02] MEDS: glipiZIDE 5 MG TABLET PO SCH (08:52)
[2020-11-02] MEDS: FAMOTIDINE 20 MG TABLET PO SCH (08:52)
[2020-11-02] MEDS: ENOXAPARIN 40 MG/0.4 ML SYRINGE SUBQ SCH (08:52)
== END 2020-11-02 09:20 | disposition home or self-care (01) | DRG 872 ==
LOC: EDUNIT# → ED 20:22 → SUPCPDRO 20:22 → MS2 23:34
PROVIDERS: ADMIT Internal Medicine; ATTEND Internal Medicine
DX: A41.9 Sepsis, unspecified organism (principal); L03.115 Cellulitis of right lower limb; R00.0 Tachycardia, unspecified; E87.1 Hypo-osmolality and hyponatremia; R53.83 Other fatigue; R06.00 Dyspnea, unspecified; S91.301A Unspecified open wound, right foot, initial encounter; I25.2 Old myocardial infarction; F17.200 Nicotine dependence, unspecified, uncomplicated; Z20.822 Contact with and (suspected) exposure to COVID-19; E11.9 Type 2 diabetes mellitus without complications; E86.0 Dehydration; I25.10 Atherosclerotic heart disease of native coronary artery without angina pectoris; N40.0 Benign prostatic hyperplasia without lower urinary tract symptoms; Z79.84 Long term (current) use of oral hypoglycemic drugs; F17.210 Nicotine dependence, cigarettes, uncomplicated; I10 Essential (primary) hypertension; K21.9 Gastro-esophageal reflux disease without esophagitis
CPT/HCPCS: 36415; 73630; 80048; 80053; 81001; 83036; 83605; 83735; 85025; 85610; 86140; 87040; 87070; 87181; 87205; 87493; 87631; 96365; 99284; 99285; A6250; A9270; J0690; J1650; J2185; 0202U; 87086

== ENCOUNTER 2020-12-18 14:35 | Outpatient (CLI) | payer MEDICARE, OTHER | END 2020-12-18 14:36 | disposition EMS.NT | LOC: EMS 14:35 | DX: Z03.89 Encounter for observation for other suspected diseases and conditions ruled out (principal) ==

== ENCOUNTER 2021-03-20 19:43 | Outpatient (CLI) | payer MEDICARE, OTHER | END 2021-03-20 19:44 | disposition critical access hospital (66) | LOC: EMS 19:43 | DX: R07.89 Other chest pain (principal) | CPT/HCPCS: A0425; A0427 ==

== ENCOUNTER 2021-03-20 19:49 | Emergency (ER) | payer MEDICARE, OTHER ==
[2021-03-20 20:09] LABS: BASOPHILS % (AUTO) 0.5 %; EOSINOPHILS # (AUTO) 0.1 10^3/uL (0.0-0.7); EOSINOPHILS % (AUTO) 0.6 %; HGB - HEMOGLOBIN 14.5 g/dL (14.0-18.0); LYMPHOCYTES # (AUTO) 1.2 10^3/uL (1.5-3.5); LYMPHOCYTES % (AUTO) 14.7 %; MEAN CORPUSCULAR HEMOGLOBIN 29.7 pg (27.0-31.0); MEAN CORPUSCULAR VOLUME 90.2 fL (80.0-94.0); MEAN PLATELET VOLUME 9.1 fL (7.4-11.4); MONOCYTES # (AUTO) 0.3 10^3/uL (0.0-1.0); MONOCYTES % (AUTO) 4.2 %; NEUTROPHILS # (AUTO) 6.5 10^3/uL (1.5-6.6); NEUTROPHILS % (AUTO) 79.8 %; PLT - PLATELET COUNT 235 10^3/uL (130-450); RED BLOOD COUNT 4.88 10^6/uL (4.70-6.10); RED CELL DISTRIBUTION WIDTH 12.7 % (12.0-15.0); WHITE BLOOD COUNT 8.1 x10^3/uL (4.8-10.8)
[2021-03-20 20:20] LABS: ALBUMIN/GLOBULIN RATIO 1.2 (1.0-2.2); CALCIUM 8.8 mg/dL (8.5-10.3); POTASSIUM 3.6 mmol/L (3.5-5.0); TOTAL PROTEIN 7.3 g/dL (6.7-8.2)
[2021-03-20] MEDS ORDERED: SODIUM CHLORIDE 0.9% 1,000 ML IV STA ×4 (20:44→23:41)
--- NOTE | 2021-03-20 20:48 | XRAY Report ---
PROCEDURE: Chest 1 View X-Ray INDICATIONS: Chest pain TECHNIQUE: One view of the chest was acquired. COMPARISON: CT angiogram of the chest 07/31/2018 FINDINGS: Surgical changes and devices: None. Lungs and pleura: No pleural effusions or pneumothorax. Lungs are clear. Mediastinum: Mediastinal contours appear normal. Heart size is normal. Bones and chest wall: No suspicious bony lesions. Overlying soft tissues appear unremarkable. IMPRESSION: No acute finding demonstrated. Reviewed by: Barney Alanis MD on 03/20/2021 8:47 PM PDT Approved by: Barney Alanis MD on 03/20/2021 8:47 PM PDT Station ID: [id number]
--- NOTE | 2021-03-20 21:57 | ED Physician Documentation ---
History of Present Illness - Stated complaint Stated Complaint: CHEST PRESSURE/ SOA - Chief complaint Chief Complaint: Cardiac - History obtained from History obtained from: Patient, EMS - History of Present Illness Timing: Today Pain level max: 2 Pain level now: 2 - Additonal information Additional information: Patient is a 81-year-old male who presents to the emergency department stating that he has felt weak, tired and short of breath recently. He states that today he had some dull chest pain, vague in nature. Nonradiating. Has not been eating and drinking very much over the past few days. When he tried to stand up he felt lightheaded and dizzy. EMS found him to be hypotensive and orthostatic. Systolic blood pressure dropped to the 60s with standing. He was given IV fluids and brought him to the emergency department for further evaluation. Denies any fevers, cough, congestion. No pain or burning with urination. Worse with standing, better with lying flat. Review of Systems Ten Systems: 10 systems reviewed and negative Constitutional: denies: Fever, Chills Nose: denies: Rhinorrhea / runny nose, Congestion Throat: denies: Sore throat Cardiac: denies: Chest pain / pressure, Palpitations Respiratory: reports: Dyspnea. denies: Cough, Hemoptysis, Wheezing GI: denies: Abdominal Pain, Nausea, Vomiting, Diarrhea Skin: denies: Rash Musculoskeletal: denies: Neck pain, Back pain Neurologic: denies: Headache PD PAST MEDICAL HISTORY - Past Medical History Past Medical History: Yes Cardiovascular: Coronary artery disease, [place] Respiratory: None Neuro: Peripheral neuropathy Endocrine/Autoimmune: Type 2 diabetes GI: GERD, Diverticulitis : Benign prostate hypertrophy HEENT: None Psych: None Musculoskeletal: Osteoarthritis, Chronic back pain Derm: None - Past Surgical History Past Surgical History: Yes General: Cholecystectomy, Bowel surgery Cardiovascular: Coronary stent - Present Medications Home Medications: Ambulatory Orders Medication Instructions Recorded Confirmed Metoprolol Tartrate [Lopressor] 25 mg PO BID 11/23/13 03/20/21 Metformin HCl [Glucophage] 1,000 mg PO BIDWM 10/30/20 03/20/21 Pentazocine HCl/Naloxone HCl 1 tab PO Q4H PRN MDD 5 tabs 10/30/20 03/20/21 [Pentazocine-Naloxone Tablet] Aspirin [Aspirin EC] 3 tab PO DAILY 11/12/20 03/20/21 Pantoprazole [Protonix] 40 mg PO QPM 11/12/20 03/20/21 Clopidogrel [Plavix] 75 mg PO DAILY 03/20/21 03/20/21 Glipizide [Glipizide ER] 5 mg PO DAILY 03/20/21 03/20/21 Simvastatin [Zocor] 40 mg PO QPM 03/20/21 03/20/21 Thiamine [Vitamin B-1] 100 mg PO DAILY 03/20/21 03/20/21 Urcodiol 300 mg PO QPM 03/20/21 - Allergies Allergies/Adverse Reactions: Allergies Allergy/AdvReac Type Severity Reaction Status Date / Time amoxicillin trihydrate * AdvReac Nausea Verified 03/20/21 20:03 [From Augmentin] potassium clavulanate * AdvReac Nausea Verified 03/20/21 20:03 [From Augmentin] - Social History Does the pt smoke?: Yes Smoking Status: Current every day smoker Does the pt drink ETOH?: Yes Does the pt have substance abuse?: No - Immunizations Immunizations are current?: No Immunizations: TDAP >10years/unknown - POLST Patient has POLST: No POLST Status: Full Code PD ED PE NORMAL - Vitals Vital signs reviewed: Yes - General General: Alert and oriented X 3, No acute distress, Well developed/nourished - HEENT HEENT: PERRL, Moist mucous membranes - Neck Neck: Supple, no meningeal sign - Cardiac Cardiac: RRR, Strong equal pulses - Respiratory Respiratory: No respiratory distress, Clear bilaterally - Abdomen Abdomen: Soft, Non tender, Non distended, Other (Mild candidiasis underneath the pannus.) - Back Back: No spinal TTP - Derm Derm: Warm and dry - Extremities Extremities: No edema, No calf tenderness / cord - Neuro Neuro: Alert and oriented X 3 - Psych Psych: Normal mood, Normal affect Results - Vitals Vitals: Vital Signs - 24 hr 03/20/21 03/20/21 03/20/21 19:49 19:59 20:11 Temperature 36.6 C Heart Rate 88 83 Respiratory 14 12 Rate Blood Pressure 101/57 L 107/71 Blood Pressure 101/71 [Right] O2 Saturation 98 97 03/20/21 03/20/21 03/20/21 20:23 20:43 21:00 Temperature Heart Rate 81 78 72 Respiratory 12 14 16 Rate Blood Pressure 107/71 92/66 89/56 L Blood Pressure [Right] O2 Saturation 96 98 97 03/20/21 03/20/21 22:00 22:22 Temperature Heart Rate 74 71 Respiratory 14 17 Rate Blood Pressure 103/68 90/74 Blood Pressure [Right] O2 Saturation 100 100 Oxygen O2 Source Room air - EKG (time done) 1952 Rate: Rate (enter#) (87) Rhythm: NSR [place]: Normal, Anterior hemiblock (LAFB) Intervals: Normal [place] QRS: Normal Ischemia: Non specific changes - Labs Labs: Laboratory Tests 03/20/21 03/20/21 03/20/21 20:03 20:03 20:03 WBC 8.1 RBC 4.88 Hgb 14.5 Hct 44.0 MCV 90.2 MCH 29.7 MCHC 33.0 RDW 12.7 Plt Count 235 MPV 9.1 Neut # (Auto) 6.5 Lymph # (Auto) 1.2 L [place] # (Auto) 0.3 Eos # (Auto) 0.1 Baso # (Auto) 0.0 Absolute Nucleated RBC 0.00 Nucleated RBC % 0.0 Sodium 135 Potassium 3.6 Chloride 93 L Carbon Dioxide 27 Anion Gap 15.0 H BUN 14 Creatinine 1.0 Estimated GFR (MDRD) 72 L Glucose 136 H Calcium 8.8 Total Bilirubin 1.0 AST 29 ALT 34 Alkaline Phosphatase 122 H Troponin I High Sens 4.4 Total Protein 7.3 Albumin 4.0 Globulin 3.3 Albumin/Globulin Ratio 1.2 Lipase 17 L - Rads (name of study) cxr Radiology: Final report received, EMP read contemporaneously, See rad report (No acute finding demonstrated. ) PD MEDICAL DECISION MAKING - ED course Complexity details: reviewed results, re-evaluated patient, considered differential, d/w patient ED course: 81-year-old male presents to the emergency department with hypotension, orth ostatic today. Given IV fluids, blood pressure still remaining around 90 after the first liter. A second liter was ordered. EKG does not show any acute abnormalities. Laboratory testing with no acute abnormalities. Patient will be signed out to the oncoming emergency department physician awaiting repeat vitals after another liter of fluid and awaiting results of the urinalysis for final disposition. This document was made in part using voice recognition software. While efforts are made to proofread this document, sound alike and grammatical errors may occur. Departure - Departure Clinical Impression: Orthostatic hypotension, Weakness, Dehydration Dyspnea Qualifiers: Dyspnea type: dyspnea on exertion Qualified Code(s): R06.00 - Dyspnea, unspecified Condition: Stable
[2021-03-21 00:24] LABS: BILIRUBIN,URINE NEGATIVE (NEGATIVE); GLUCOSE, URINE (UA) NEGATIVE (NEGATIVE); KETONES,URINE (UA) TRACE mg/dL (NEGATIVE); LEUKOCYTE ESTERASE, URINE NEGATIVE (NEGATIVE); NITRITE,URINE NEGATIVE (NEGATIVE); OCCULT BLOOD,URINE SMALL (NEGATIVE); PH,URINE 5.5 PH (5.0-7.5); PROTEIN,URINE NEGATIVE (NEGATIVE); UROBILINOGEN,URINE 0.2 (NORMAL) E.U./dL (NORMAL)
[2021-03-21 00:36] LABS: CLARITY,URINE CLEAR (CLEAR)
[2021-03-21 00:37] LABS: BACTERIA,URINE Rare /HPF (None Seen); RBC,URINE 0-5 /HPF (0-5); SQUAMOUS EPITHELIAL CELL,UR RARE Squamous (<= Few); WBC,URINE 0-3 /HPF (0-3)
[2021-03-21 02:21] VITALS: BP 150/73
--- NOTE | 2021-03-21 08:20 | ED Physician Documentation ---
ED Addendum - Addendum Addendum: 03/21/21 08:12 Received sign out from Dr. Sierra at the end of his shift. patient presented to ED via ambulance with multiple c/o including vague chest discomfort, generalized weakness, dyspnea on exertion; patient tells me these symptoms have been ongoing for months but worse tonight. His ED tests, including EKG, CXR, and blood tests are all unremarkable and reassuring. He was hypotensive in field and early in ED stay, steadily improving blood pressures and decreasing symptoms with IV fluids (total of 3 liters NS during ED stay). After his second liter, he reported significant improvement in symptoms and had normal blood pressure/pulse lying down, but 80s systolic blood pressure when standing (although no significant change in pulse rate and denies symptoms when he was standing). After third liter NS IV, he continued to report the improvement in symptoms even when standing, ambulating, and normotensive readings upon standing. He eventually required in/out cath for UA, and the urinalysis does not evidence infection. I discussed these results with patient and discussed plan to discharge him home, instructed to return if worse, and to contact his primary care provider tomorrow (Monday, 03/21) to arrange for next available appointment even if he is feeling well. He is able to slowly ambulate with a walker in ED.
== END 2021-03-21 02:15 | disposition home or self-care (01) ==
LOC: EDUNIT# → ED 19:49
DX: I95.1 Orthostatic hypotension (principal); E86.0 Dehydration; E11.42 Type 2 diabetes mellitus with diabetic polyneuropathy; Z79.84 Long term (current) use of oral hypoglycemic drugs; F17.200 Nicotine dependence, unspecified, uncomplicated; Z95.5 Presence of coronary angioplasty implant and graft
CPT/HCPCS: 36415; 80053; 81001; 81003; 83605; 83690; 84484; 85025; 87086; 93005; 96360; 96361; 99284

== ENCOUNTER 2021-03-22 11:32 | Outpatient (CLI) | payer MEDICARE, OTHER | END 2021-03-22 11:33 | disposition critical access hospital (66) | LOC: EMS 11:32 | DX: R25.1 Tremor, unspecified (principal); R06.02 Shortness of breath; R50.9 Fever, unspecified | CPT/HCPCS: A0425; A0429 ==

== ENCOUNTER 2021-03-22 11:45 | Inpatient (IN) | payer MEDICARE, OTHER ==
--- NOTE | 2021-03-22 12:19 | ED Physician Documentation ---
History of Present Illness - Stated complaint Stated Complaint: CHILLS/SOA - Chief complaint Chief Complaint: General - History obtained from History obtained from: Patient, EMS - Additonal information Additional information: 81-year-old gentleman with history of diet diabetes, coronary disease, BPH. Lives alone here in [place]. He is a poor historian because he seems encephalopathic but it sounds like very acutely today became chilled with shortness of breath. He has not immunized against Covid. States he was having some urinary complaints but really cannot give me any further details. Review of Systems Unable to obtain: Confused PD PAST MEDICAL HISTORY - Past Medical History Cardiovascular: Coronary artery disease, [place] Respiratory: None Neuro: Peripheral neuropathy Endocrine/Autoimmune: Type 2 diabetes GI: GERD, Diverticulitis : Benign prostate hypertrophy HEENT: None Psych: None Musculoskeletal: Osteoarthritis, Chronic back pain Derm: None - Past Surgical History Past Surgical History: Yes General: Cholecystectomy, Bowel surgery Cardiovascular: Coronary stent - Present Medications Home Medications: Ambulatory Orders Medication Instructions Recorded Confirmed Metoprolol Tartrate [Lopressor] 25 mg PO BID 11/23/13 03/22/21 Metformin HCl [Glucophage] 500 mg PO BIDWM 10/30/20 03/20/21 Pentazocine HCl/Naloxone HCl 1 tab PO Q4H PRN MDD 5 tabs 10/30/20 03/22/21 [Pentazocine-Naloxone Tablet] Aspirin [Aspirin EC] 3 tab PO DAILY 11/12/20 03/22/21 Pantoprazole [Protonix] 40 mg PO QPM 11/12/20 03/22/21 Clopidogrel [Plavix] 75 mg PO DAILY 03/20/21 03/22/21 Glipizide [Glipizide ER] 5 mg PO BID 03/20/21 03/20/21 Simvastatin [Zocor] 40 mg PO QPM 03/20/21 03/22/21 Thiamine [Vitamin B-1] 100 mg PO DAILY 03/20/21 03/22/21 Tamsulosin [Flomax] 0.4 mg PO DAILY 03/22/21 ursodioL [Actigall] 300 mg PO QPM 03/22/21 - Allergies Allergies/Adverse Reactions: Allergies Allergy/AdvReac Type Severity Reaction Status Date / Time amoxicillin trihydrate * AdvReac Nausea Verified 03/22/21 12:09 [From Augmentin] potassium clavulanate * AdvReac Nausea Verified 03/22/21 12:09 [From Augmentin] - Social History Does the pt smoke?: Yes Smoking Status: Current every day smoker Does the pt drink ETOH?: Yes Does the pt have substance abuse?: No - Immunizations Immunizations are current?: No Immunizations: TDAP >10years/unknown - POLST Patient has POLST: No POLST Status: Full Code PD ED PE NORMAL - Vitals Vital signs reviewed: Yes - General General: Other (Alert and oriented to person and place but not time or events) - HEENT HEENT: PERRL, EOMI - Neck Neck: Supple, no meningeal sign, No bony TTP - Cardiac Cardiac: Other (Tachycardic but regular without murmur) - Respiratory Respiratory: Other (Clear to auscultation anteriorly, he is too weak to sit up.) - Abdomen Abdomen: Soft, Non tender - Extremities Extremities: No edema, No calf tenderness / cord - Neuro Eye Opening: Spontaneous Motor: Obeys Commands Verbal: Confused GCS Score: 14 Results - Vitals Vitals: Vital Signs - 24 hr 03/22/21 03/22/21 03/22/21 12:01 12:10 12:45 Temperature 36.8 C 37.0 C Heart Rate 124 H 119 H Respiratory 22 25 H Rate Blood Pressure 176/90 H 129/69 O2 Saturation 97 91 L 96 03/22/21 03/22/21 03/22/21 13:15 13:19 13:30 Temperature 37.4 C 37.4 C Heart Rate 109 H 110 H 98 Respiratory 25 H 20 19 Rate Blood Pressure 117/59 L 129/69 120/61 O2 Saturation 98 98 98 03/22/21 14:00 Temperature 37.4 C Heart Rate 100 Respiratory 22 Rate Blood Pressure 114/68 O2 Saturation 98 Oxygen O2 Source Nasal cannula Oxygen Flow Rate 2 - EKG (time done) 1244 Rate: Rate (enter#) (122) Rhythm: Sinus tachycardia [place]: LAD Intervals: Normal [place] QRS: Normal Ischemia: Normal ST segments. No: ST elevation c/w ischemia, ST depression - Labs Labs: Laboratory Tests 03/22/21 03/22/21 03/22/21 12:34 12:34 12:34 WBC 6.5 RBC 4.51 L Hgb 13.8 L Hct 40.7 L MCV 90.2 MCH 30.6 MCHC 33.9 RDW 13.1 Plt Count 149 MPV 8.8 Neut # (Auto) 6.2 Lymph # (Auto) 0.2 L [place] # (Auto) 0.0 Eos # (Auto) 0.0 Baso # (Auto) 0.0 Absolute Nucleated RBC 0.00 Nucleated RBC % 0.0 Sodium 134 L Potassium 4.0 Chloride 95 L Carbon Dioxide 26 Anion Gap 13.0 BUN 7 Creatinine 0.9 Estimated GFR (MDRD) 81 L Glucose 102 H Lactic Acid 2.7 H Calcium 8.7 Total Bilirubin 0.9 AST 42 ALT 33 Alkaline Phosphatase 112 Troponin I High Sens Total Protein 7.1 Albumin 4.2 Globulin 2.9 Albumin/Globulin Ratio 1.4 Urine Color Urine Clarity Urine pH Ur Specific [place] Urine Protein Urine Glucose (UA) Urine Ketones Urine Occult Blood Urine Nitrite Urine Bilirubin Urine Urobilinogen Ur Leukocyte Esterase Urine RBC Urine WBC Ur Squamous Epith Cells Urine Bacteria Urine Culture Comments Nasal Adenovirus (PCR) Nasal B. parapertussis DNA (PCR) Nasal Coronavir 229E PCR Nasal Coronavir HKU1 PCR Nasal Coronavir NL63 PCR Nasal Coronavir OC43 PCR Nasal Enterovir/Rhinovir PCR Nasal Influenza B PCR Nasal Influenza A PCR Nasal Parainfluen 1 PCR Nasal Parainfluen 2 PCR Nasal Parainfluen 3 PCR Nasal Parainfluen 4 PCR Nasal RSV (PCR) Nasal B.pertussis DNA PCR Nasal C.pneumoniae (PCR) Micha Human Metapneumo PCR Nasal M.pneumoniae (PCR) Nasal SARS-CoV-2 (PCR) 03/22/21 03/22/21 03/22/21 12:34 13:00 13:00 WBC RBC Hgb Hct MCV MCH MCHC RDW Plt Count MPV Neut # (Auto) Lymph # (Auto) [place] # (Auto) Eos # (Auto) Baso # (Auto) Absolute Nucleated RBC Nucleated RBC % Sodium Potassium Chloride Carbon Dioxide Anion Gap BUN Creatinine Estimated GFR (MDRD) Glucose Lactic Acid Calcium Total Bilirubin AST ALT Alkaline Phosphatase Troponin I High Sens 7.8 Total Protein Albumin Globulin Albumin/Globulin Ratio Urine Color YELLOW Urine Clarity CLEAR Urine pH 5.5 Ur Specific [place] 1.020 Urine Protein NEGATIVE Urine Glucose (UA) NEGATIVE Urine Ketones NEGATIVE Urine Occult Blood LARGE H Urine Nitrite POSITIVE H Urine Bilirubin NEGATIVE Urine Urobilinogen 0.2 (NORMAL) Ur Leukocyte Esterase TRACE H Urine RBC 11-25 H Urine WBC 0-3 Ur Squamous Epith Cells NONE SEEN Urine Bacteria Moderate H Urine Culture Comments INDICATED Nasal Adenovirus (PCR) NOT DETECTED Nasal B. parapertussis DNA (PCR) NOT DETECTED Nasal Coronavir 229E PCR NOT DETECTED Nasal Coronavir HKU1 PCR NOT DETECTED Nasal Coronavir NL63 PCR NOT DETECTED Nasal Coronavir OC43 PCR NOT DETECTED Nasal Enterovir/Rhinovir PCR NOT DETECTED Nasal Influenza B PCR NOT DETECTED Nasal Influenza A PCR NOT DETECTED Nasal Parainfluen 1 PCR NOT DETECTED Nasal Parainfluen 2 PCR NOT DETECTED Nasal Parainfluen 3 PCR NOT DETECTED Nasal Parainfluen 4 PCR NOT DETECTED Nasal RSV (PCR) NOT DETECTED Nasal B.pertussis DNA PCR NOT DETECTED Nasal C.pneumoniae (PCR) NOT DETECTED [place] Human Metapneumo PCR NOT DETECTED Nasal M.pneumoniae (PCR) NOT DETECTED Nasal SARS-CoV-2 (PCR) NOT DETECTED PD MEDICAL DECISION MAKING - ED course ED course: 81-year-old gentleman presents with an encephalopathy which after discussion with his daughter is probably very acute, shaking chills, tachycardia and tachypnea. Sepsis time of onset with the results of urinalysis at 2 PM. He is septic with both tachycardia and tachypnea as well as a source. Remainder of his work-up shows mild lactic acidosis, single view chest x-ray interpreted contemporaneously by me was normal. Cipro was given IV and I spoke with Dr. Newsome for admission at 2:26 PM. - Sepsis Event Current Stage of Sepsis: Sepsis Initial Hypotension: Not hypotensive Possible source of Sepsis: Genitourinary Mental/Cognitive Status: Confused, Lethargic Reason for not giving 30ml/kg crystalloid fluids: Not in septic shock Capillary refill: Less than 2 seconds Peripheral Pulse Strength: 2+ Slightly Diminished Peripheral Pulse Location: Radial Departure - Departure Disposition: 66 [facility] DC/Xfer Clinical Impression: UTI (urinary tract infection), Sepsis, Encephalopathy acute Condition: Serious Discharge Date/Time: 03/22/21 15:25
[2021-03-22 12:41] LABS: BASOPHILS % (AUTO) 0.2 %; EOSINOPHILS % (AUTO) 0.3 %; HCT - HEMATOCRIT 40.7 % (42.0-52.0); HGB - HEMOGLOBIN 13.8 g/dL (14.0-18.0); LYMPHOCYTES # (AUTO) 0.2 10^3/uL (1.5-3.5); LYMPHOCYTES % (AUTO) 3.5 %; MEAN CORPUSCULAR HEMOGLOBIN 30.6 pg (27.0-31.0); MEAN CORPUSCULAR HGB CONC 33.9 g/dL (32.0-36.0); MEAN CORPUSCULAR VOLUME 90.2 fL (80.0-94.0); MEAN PLATELET VOLUME 8.8 fL (7.4-11.4); MONOCYTES % (AUTO) 0.6 %; NEUTROPHILS # (AUTO) 6.2 10^3/uL (1.5-6.6); NEUTROPHILS % (AUTO) 95.2 %; PLT - PLATELET COUNT 149 10^3/uL (130-450); RED BLOOD COUNT 4.51 10^6/uL (4.70-6.10); RED CELL DISTRIBUTION WIDTH 13.1 % (12.0-15.0); WHITE BLOOD COUNT 6.5 x10^3/uL (4.8-10.8)
--- NOTE | 2021-03-22 12:41 | XRAY Report ---
PROCEDURE: Chest 1 View X-Ray INDICATIONS: rigors TECHNIQUE: One view of the chest was acquired. COMPARISON: 03/20/2021. FINDINGS: Surgical changes and devices: None. Lungs and pleura: No pleural effusions or pneumothorax. Lungs are clear. Mediastinum: Mediastinal contours appear normal. Heart size is normal. Bones and chest wall: No suspicious bony lesions. Overlying soft tissues appear unremarkable. IMPRESSION: No acute cardiopulmonary disease process. Reviewed by: Melissa Serrano MD, PhD on 03/22/2021 12:40 PM PDT Approved by: Melissa Serrano MD, PhD on 03/22/2021 12:40 PM PDT Station ID: [id number]
[2021-03-22 12:52] LABS: LACTIC ACID, VENOUS 2.7 mmol/L (0.5-2.2)
[2021-03-22] MEDS ORDERED: SODIUM CHLORIDE 0.9% 1,000 ML IV STA (12:54)
[2021-03-22 12:55] LABS: ALBUMIN 4.2 g/dL (3.2-5.5); ALBUMIN/GLOBULIN RATIO 1.4 (1.0-2.2); BILIRUBIN,TOTAL 0.9 mg/dL (0.2-1.0); CALCIUM 8.7 mg/dL (8.5-10.3); CREATININE 0.9 mg/dL (0.6-1.2); TOTAL PROTEIN 7.1 g/dL (6.7-8.2)
[2021-03-22 13:13] LABS: BILIRUBIN,URINE NEGATIVE (NEGATIVE); GLUCOSE, URINE (UA) NEGATIVE (NEGATIVE); KETONES,URINE (UA) NEGATIVE (NEGATIVE); LEUKOCYTE ESTERASE, URINE TRACE (NEGATIVE); NITRITE,URINE POSITIVE (NEGATIVE); OCCULT BLOOD,URINE LARGE (NEGATIVE); PH,URINE 5.5 PH (5.0-7.5); PROTEIN,URINE NEGATIVE (NEGATIVE); UROBILINOGEN,URINE 0.2 (NORMAL) E.U./dL (NORMAL)
[2021-03-22 13:22] LABS: BACTERIA,URINE Moderate /HPF (None Seen); CLARITY,URINE CLEAR (CLEAR); SQUAMOUS EPITHELIAL CELL,UR NONE SEEN (<= Few); WBC,URINE 0-3 /HPF (0-3)
[2021-03-22 14:00] LABS: B. PARAPERTUSSIS- RESP PCR PAN NOT DETECTED; B. PERTUSSIS- RESP PCR PANEL NOT DETECTED; C. PNEUMONIAE- RESP PCR PANEL NOT DETECTED; CORONAVIRUS 229E-RESP PCR NOT DETECTED; CORONAVIRUS HKU1-RESP PCR NOT DETECTED; CORONAVIRUS NL63-RESP PCR NOT DETECTED; CORONAVIRUS OC43-RESP PCR NOT DETECTED; HUMAN METAPNEUMOVIRUS NOT DETECTED; INFLUENZA A- RESP PCR PANEL NOT DETECTED; INFLUENZA B - RESP PCR PANEL NOT DETECTED; M. PNEUMONIAE- RESP PCR PANEL NOT DETECTED; PARAINFLUENZA VIRUS 1 NOT DETECTED; PARAINFLUENZA VIRUS 2 NOT DETECTED; PARAINFLUENZA VIRUS 3 NOT DETECTED; PARAINFLUENZA VIRUS 4 NOT DETECTED; RHINOVIRUS/ENTEROVIRUS NOT DETECTED; RSV- RESP PCR PANEL NOT DETECTED; SARS-CoV-2 -RESP PCR PANEL NOT DETECTED
[2021-03-22] MEDS ORDERED: CIPROFLOXACIN 400 MG/200 ML 400 MG/200 ML BAG IV STA (14:16)
[2021-03-22] MEDS ORDERED: SODIUM CHLORIDE FLUSH 0.9% 10 ML SYRINGE IVP PRN (14:26)
[2021-03-22] MEDS ORDERED: ONDANSETRON 4 MG/2 ML VIAL IVP PRN (14:26)
--- NOTE | 2021-03-22 14:30 | HISTORY & PHYSICAL EXAMINATION ---
Chief Complaint - Chief Complaint Chief Complaint: rigors History of Present Illness - Admitted From Admitted From:: [facility] ED - History Obtained From Records Reviewed: yes History obtained from: patient and records - History of Present Illness HPI Comment/Other: Patient is 81-year-old male who has presented in the ED for 2 days in a row. On 03/20, he presented with dysnea, tiredness and weakness. He also reported a vague nonradiating chest pain. It was reported that he had not been eating or drinking for a few days. EMS found him hypotensive with positive orthostatics. SBP was 60 standing. Work up at the which time included CBC, BMP, EKG, CXR and UA were unremarkable. He was infused a total of 3L of NS after which he felt better. He was able to ambulate with no difficulties. He was discharged home around 2 am on 03/21. Today, his brother who lives near [place], [place] called to check on him after learning that the patient was in the hospital. The patient sounded confused so he called 911. EMS found him in rigors so he was brought back to the ED. Though afebrile, he was tachycardic with heart rate of 124, tachypnea with respiratory rate of 25. He also had a lactic acid of 2.7 and UA showed moderate bacteria, positive nitrites and leukocyte esterase for which a urine culture was indicates. As a result he was presented for admission for further treatment. At bedside he denied chest pain, dyspnea, abdominal pain, flank pain, nausea or vomiting. He received a 1L bolus of normal saline in the ED and a dose of Cipro 400mg IV after which he reported feeling better. History - Past Medical History Cardiovascular: reports: Coronary artery disease, [place] Respiratory: reports: None Neuro: reports: Peripheral neuropathy Endocrine/Autoimmune: reports: Type 2 diabetes GI: reports: GERD, Diverticulitis : reports: Benign prostate hypertrophy HEENT: reports: None Psych: reports: None Musculoskeletal: reports: Osteoarthritis, Chronic back pain Derm: reports: None MRSA Hx?: No - Past Surgical History General: reports: Cholecystectomy, Bowel surgery Cardiovascular: reports: Coronary stent - Family & Social History Family History: Mother: , Father: , Brother: Family History Comment/Other: The patient states there is no family history of diabetes, coronary artery disease, hypertension or cancer. He states both of his parents of old age. Living Situation: Alone Social History Notes: The patient lives alone in [place], [place]. He has 2 daughters who live in [place], [place]. The patient states he used to live in [place], [place] but moved to [facility] in 2006 after his in 2005. He states he was to his for 43 years. He states that he used to work in [employer] but has retired. The patient states that he used to be a heavy drinker and would drink 2-1/2 gallons of vodka in a week. He states that he cut back on his vodka consumption a number of years ago but was still drinking beer up until about 2 years ago when he completely stopped ricardo alexandra all alcohol. The patient states that he quit smoking in 1973 but did smoke for just over 10 years. He states he used to smoke up to 4 packs a day. He states that he tried marijuana once but did not like the effects of it and does not use any illicit drugs. He chews tobacco now, one can every 2-3 days - Substance History Use: Uses substance without health or social issues: Tobacco - POLST Patient has POLST: No POLST Status: Full Code Meds/Allgy - Home Medications Home Medications: Ambulatory Orders Medication Instructions Recorded Confirmed Metoprolol Tartrate [Lopressor] 25 mg PO BID 11/23/13 03/22/21 Metformin HCl [Glucophage] 1,000 mg PO BIDWM 10/30/20 03/22/21 Pentazocine HCl/Naloxone HCl 1 tab PO Q4H PRN MDD 5 tabs 10/30/20 03/22/21 [Pentazocine-Naloxone Tablet] Aspirin [Aspirin EC] 3 tab PO DAILY 11/12/20 03/22/21 Pantoprazole [Protonix] 40 mg PO QPM 11/12/20 03/22/21 Clopidogrel [Plavix] 75 mg PO DAILY 03/20/21 03/22/21 Glipizide [Glipizide ER] 5 mg PO DAILY 03/20/21 03/22/21 Simvastatin [Zocor] 40 mg PO QPM 03/20/21 03/22/21 Thiamine [Vitamin B-1] 100 mg PO DAILY 03/20/21 03/22/21 ursodioL [Actigall] 300 mg PO QPM 03/22/21 - Allergies Allergies/Adverse Reactions: Allergies Allergy/AdvReac Type Severity Reaction Status Date / Time amoxicillin trihydrate * AdvReac Nausea Verified 03/22/21 12:09 [From Augmentin] potassium clavulanate * AdvReac Nausea Verified 03/22/21 12:09 [From Augmentin] Review of Systems - Constitutional Constitutional: reports: Fatigue, Weakness, Other (Rigors). denies: Fever, Chills - Eyes Eyes: denies: Pain - Ears, Nose & Throat Ears, Nose & Throat: denies: Ear pain - Cardiovascular Cariovascular: denies: Chest pain, Edema, Lightheadedness, Syncope - Respiratory Respiratory: denies: Cough, Sputum production, Wheezing, SOB at rest, SOB with exertion - Gastrointestinal Gastrointestinal: denies: Abdominal pain, Abdominal distention, Constipation, Diarrhea, Coffee grounds emesis, Reflux/heartburn - Genitourinary Genitourinary: reports: Dysuria. denies: Frequency, Urgency, Hematuria, Flank pain - Musculoskeletal Musculoskeletal: denies: Muscle pain, Back pain - Integumentary Integumentary: denies: Rash, Pruritis - Neurological Neurological: denies: General weakness, Headache - Psychiatric Psychiatric: denies: Depression, Anxiety - Endocrine Endocrine: denies: Polyuria, Polydypsia - Hematologic/Lymphatic Hematologic/Lymphatic: denies: Anemia, Bruising Prior Level of Functionality: He lives alone. He gets around using a cane or walker. He is fairly independent of activities of daily living. He can prepare his meals on his own however he gets help from a friend to do groceries. Exam - Vital Signs Vital Signs: Vital Signs x48h Temp Pulse Resp BP Pulse Ox 03/22/21 13:30 37.4 C 98 19 120/61 98 03/22/21 13:19 110 H 20 129/69 98 03/22/21 13:15 37.4 C 109 H 25 H 117/59 L 98 03/22/21 12:45 37.0 C 119 H 25 H 129/69 96 03/22/21 12:10 91 L 03/22/21 12:01 36.8 C 124 H 22 176/90 H 97 - Physical Exam General Appearance: positive: Alert, Mild distress, Other (rigors) Eyes Bilateral: positive: PERRL, EOMI ENT: positive: No signs of dehydration Neck: positive: No JVD, Trachea midline Respiratory: positive: Chest non-tender, No respiratory distress, Breath sounds nml. negative: Wheezes, Rales, Rhonchi Cardiovascular: positive: No murmur, Tachycardia Abdomen: positive: Non-tender, No organomegaly, Nml bowel sounds, No distention. negative: Guarding, Rebound Back: positive: Nml inspection Skin: positive: Color nml, No rash, Warm, Dry Extremities: positive: Non-tender, Full ROM, Nml appearance Neurologic/Psychiatric: positive: Oriented x3, Mood/affect nml Sepsis Event Note (H) - Evaluation Current Stage of Sepsis: Sepsis Possible source of Sepsis: positive: Genitourinary - Sepsis Criteria Sepsis Criteria: Recorded Heart Rate greater than 90 bpm, Recorded Respiratory Rate greater than 20, [employer]: altered consciousness (unrelated to primary neuro pathology), Metabolic: lactate > 2 mmol/L Conclusion/Plan - Problem List (1) Sepsis Conclusion/Plan: Secondary to a UTI. Patient was in rigors, tachycardic, tachypneic, lactic acid 2.7 and UA with moderate bacteria. Blood and urine cultures pending. Patient was given a 1 L bolus of normal saline in the ED. Continue normal saline at 100 mL/h. Cipro 400 mg IV twice daily ordered. (2) UTI (urinary tract infection) Conclusion/Plan: Secondary to a UTI. Patient was in rigors, tachycardic, tachypneic, lactic acid 2.7 and UA with moderate bacteria. Blood and urine cultures pending. Patient was given a 1 L bolus of normal saline in the ED. Continue normal saline at 100 mL/h. Cipro 400 mg IV twice daily ordered. (3) Diabetes mellitus Conclusion/Plan: We will hold patient's Metformin and glipizide. Sliding scale insulin ordered before every meal and at bedtime. Accu-Cheks ordered. Qualifiers: Diabetes mellitus type: type 2 Diabetes mellitus intermediate accountant insulin use: without correction use Diabetes mellitus complication status: with other specified complication Qualified Code(s): E11.69 - Type 2 diabetes mellitus with other specified complication (4) HTN (hypertension) Conclusion/Plan: On metoprolol tartrate 25 mg p.o. twice daily. (5) History of coronary artery disease Conclusion/Plan: On 3 tablets of full dose aspirin daily. On Plavix 75 mg p.o. daily, metoprolol tartrate 25 mg p.o. twice daily and simvastatin 40 mg p.o. daily. - Lab Results Fish Bones: 03/22/21 12:34 03/22/21 12:34 Core Measures - Anticipated LOS I expect patient to be DC'd or transferred within 96 hours.: Yes - DVT/VTE - Prophylaxis VTE/DVT Device ordered at admit?: Yes VTE/DVT Prophylaxis med ordered at admit?: Yes
[2021-03-22] MEDS ORDERED: CIPROFLOXACIN 400 MG/200 ML 400 MG/200 ML BAG IV SCH (15:00)
[2021-03-22] MEDS: SODIUM CHLORIDE 0.9% 1,000 ML IV SCH (16:17)
[2021-03-22] MEDS: SODIUM CHLORIDE FLUSH 0.9% 10 ML SYRINGE IVP SCH (16:21)
[2021-03-22] MEDS: NICOTINE 14 MG PATCH TOP SCH (16:24)
[2021-03-22] MEDS: INSULIN ASPART 300 UNIT/3 ML PEN SUBQ SCH ×2 (17:17→21:44)
[2021-03-22] MEDS ORDERED: [UNRECOGNIZED DRUG - OTHER] PO PRN (17:41)
--- NOTE | 2021-03-22 17:43 | PHARMACY PROGRESS NOTE ---
- Best Possible Medication History Admit Date and Time: 03/22/21 1426 Processed by: Pharmacy Medication History completed: Yes Patient Interview: Pt unable to participate Secondary Source(s): Physician records, Pharmacy records, Insurance records, Previous admit records As the person ultimately responsible for medication therapy, providers are able to order a medication from an existing home medication list in [facility] via the "Reconcile Routine" prior to Confirmation of that medication by support director. Such practice is discouraged except when the physician, in their clinical judgment, deems that a medical need exists for a medication without regard to previous use.
[2021-03-22 19:36] LABS: LACTIC ACID, VENOUS 2.1 mmol/L (0.5-2.2)
[2021-03-22] MEDS: PANTOPRAZOLE 40 MG TABLET PO SCH (21:36)
[2021-03-22] MEDS: ATORVASTATIN 10 MG TABLET PO SCH (21:36)
[2021-03-22] MEDS: METOPROLOL TARTRATE 25 MG TABLET PO SCH (21:36)
[2021-03-22] MEDS: CIPROFLOXACIN 400 MG/200 ML 400 MG/200 ML BAG IV SCH (21:41)
[2021-03-23] MEDS: SODIUM CHLORIDE FLUSH 0.9% 10 ML SYRINGE IVP SCH ×3 (00:26→17:38)
[2021-03-23] MEDS: SODIUM CHLORIDE 0.9% 1,000 ML IV SCH ×2 (03:08→13:35)
[2021-03-23] MEDS: ACETAMINOPHEN 325 MG TABLET PO PRN ×5 (04:29→23:24)
[2021-03-23 05:34] LABS: BASOPHILS % (AUTO) 0.2 %; CALCIUM 7.8 mg/dL (8.5-10.3); CREATININE 0.8 mg/dL (0.6-1.2); EOSINOPHILS # (AUTO) 0.2 10^3/uL (0.0-0.7); HCT - HEMATOCRIT 32.8 % (42.0-52.0); HGB - HEMOGLOBIN 11.1 g/dL (14.0-18.0); LYMPHOCYTES # (AUTO) 0.3 10^3/uL (1.5-3.5); LYMPHOCYTES % (AUTO) 4.8 %; MEAN CORPUSCULAR HEMOGLOBIN 30.2 pg (27.0-31.0); MEAN CORPUSCULAR HGB CONC 33.8 g/dL (32.0-36.0); MEAN CORPUSCULAR VOLUME 89.4 fL (80.0-94.0); MEAN PLATELET VOLUME 9.1 fL (7.4-11.4); MONOCYTES # (AUTO) 0.2 10^3/uL (0.0-1.0); MONOCYTES % (AUTO) 2.7 %; NEUTROPHILS # (AUTO) 5.6 10^3/uL (1.5-6.6); PLT - PLATELET COUNT 121 10^3/uL (130-450); POTASSIUM 3.5 mmol/L (3.5-5.0); RED BLOOD COUNT 3.67 10^6/uL (4.70-6.10); RED CELL DISTRIBUTION WIDTH 13.1 % (12.0-15.0); WHITE BLOOD COUNT 6.2 x10^3/uL (4.8-10.8)
[2021-03-23] MEDS: INSULIN ASPART 300 UNIT/3 ML PEN SUBQ SCH ×4 (07:57→20:24)
--- NOTE | 2021-03-23 08:31 | PROVIDER PROGRESS NOTE ---
Subjective - Prog Note Date Prog Note Date: 03/23/21 - Subjective Subjective: He reports feeling much better. Denies any chest pain, dyspnea, rigors. He reports occasional dysuria which occurred after catheter was placed to obtain a urinalysis. He denies any abdominal pain. Current Medications - Current Medications Current Medications: Active Medications Acetaminophen (Acetaminophen 325 Mg Tablet) 650 mg PO Q4HR PRN PRN Reason: Pain 1 to 4 Last Admin: 03/23/21 13:35 Dose: 650 mg Documented by: Aspirin (Aspirin Ec 81 Mg Tablet) 243 mg PO DAILY [facility] Last Admin: 03/23/21 09:08 Dose: 243 mg Documented by: Atorvastatin Calcium (Atorvastatin 10 Mg Tablet) 20 mg PO QPM [facility] Last Admin: 03/22/21 21:36 Dose: 20 mg Documented by: Clopidogrel Bisulfate (Clopidogrel 75 Mg Tablet) 75 mg PO DAILY [facility] Last Admin: 03/23/21 09:08 Dose: 75 mg Documented by: Enoxaparin Sodium (Enoxaparin 40 Mg/0.4 Ml Syringe) 40 mg SUBQ DAILY [facility] Last Admin: 03/23/21 09:09 Dose: 40 mg Documented by: Sodium Chloride (Normal Saline 0.9%) 1,000 mls @ 100 mls/hr IV .Q10H [facility] Last Admin: 03/23/21 13:35 Dose: 100 mls/hr Documented by: Ciprofloxacin (Cipro 400 Mg/200 Ml) 400 mg in 200 mls @ 200 mls/hr IV BID [facility] Last Infusion: 03/23/21 10:16 Dose: Infused Documented by: Vancomycin HCl 1 gm/Vancomycin HCl 250 mg/ Sodium Chloride 250 mls @ 167 mls/hr IV Q12H [facility] Insulin Aspart (Insulin Aspart 300 Unit/3 Ml Pen) 1 - 5 unit SUBQ 0800,1200,1700,2100 [facility]; Protocol Last Admin: 03/23/21 11:37 Dose: Not Given Documented by: Metoprolol Tartrate (Metoprolol Tartrate 25 Mg Tablet) 25 mg PO BID [facility] Last Admin: 03/23/21 09:18 Dose: 25 mg Documented by: Nicotine (Nicotine 14 Mg Patch) 1 patch TOP DAILY [facility] Last Admin: 03/23/21 09:09 Dose: 1 patch Documented by: Ondansetron HCl (Ondansetron 4 Mg/2 Ml Vial) 4 mg IVP Q6HR PRN PRN Reason: Nausea / Vomiting Pantoprazole Sodium (Pantoprazole 40 Mg Tablet) 40 mg PO QPM [facility] Last Admin: 03/22/21 21:36 Dose: 40 mg Documented by: Pentazocine-Naloxone Tablet] 1 Each Tablet 1 each PO Q4H PRN PRN Reason: PAIN Sodium Chloride (Sodium Chloride Flush 0.9% 10 Ml Syringe) 10 ml IVP PRN PRN PRN Reason: NEEDED PER PROVIDER ORDERS Sodium Chloride (Sodium Chloride Flush 0.9% 10 Ml Syringe) 10 ml IVP 0100,0900 ,1700 [facility] Last Admin: 03/23/21 09:16 Dose: Not Given Documented by: Thiamine HCl (Thiamine 100 Mg Tablet) 100 mg PO DAILY [facility] Last Admin: 03/23/21 09:05 Dose: 100 mg Documented by: Metoprolol Tartrate [Lopressor] 25 mg PO BID 11/23/13 Metformin HCl [Glucophage] 500 mg PO BIDWM 10/30/20 Pentazocine HCl/Naloxone HCl [Pentazocine-Naloxone Tablet] 1 tab PO Q4H PRN MDD 5 tabs 10/30/20 Pantoprazole [Protonix] 40 mg PO QPM 11/12/20 Clopidogrel [Plavix] 75 mg PO DAILY 03/20/21 Glipizide [Glipizide ER] 5 mg PO BID 03/20/21 Simvastatin [Zocor] 40 mg PO QPM 03/20/21 Thiamine [Vitamin B-1] 100 mg PO DAILY 03/20/21 Aspirin EC [Ecotrin] 243 mg PO DAILY 03/22/21 Tamsulosin [Flomax] 0.4 mg PO DAILY 03/22/21 ursodioL [Actigall] 300 mg PO QPM 03/22/21 Objective - Vital Signs/Intake & Output Reviewed Vital Signs: Yes Vital Signs: Vital Signs x48h Temp Pulse Resp BP Pulse Ox 03/23/21 05:06 37 C 62 18 138/65 H 99 Intake & Output: Intake & Output 03/20/21 03/21/21 03/22/21 03/23/21 23:59 23:59 23:59 23:59 Intake Total 2800 1135 Output Total 1075 600 Balance 1725 535 - Objective General Appearance: positive: No acute distress, Alert Eyes Bilateral: positive: Normal inspection, Conjunctivae nml Eyes: OU Abnormal EOM ENT: positive: ENT inspection nml Neck: positive: Nml inspection Respiratory: positive: No respiratory distress. negative: Wheezes, Rales Cardiovascular: positive: Regular rate & rhythm, No murmur. negative: Tachyc ardia Abdomen: positive: Non-tender, No distention. negative: Tenderness Skin: positive: Warm, Dry Extremities: positive: No pedal edema Neurologic/Psychiatric: positive: Motor nml. negative: Disoriented to person, Disoriented to place, Slurred/abnml speech - Lab Results Fish Bones: 03/23/21 05:17 03/23/21 05:17 Other Labs: Lab Results x24hrs 03/23/21 03/23/21 03/23/21 Range/Units 07:55 05:17 05:17 WBC 6.2 (4.8-10.8) x10^3/uL RBC 3.67 L (4.70-6.10) 10^6/uL Hgb 11.1 L (14.0-18.0) g/dL Hct 32.8 L (42.0-52.0) % MCV 89.4 (80.0-94.0) fL MCH 30.2 (27.0-31.0) pg MCHC 33.8 (32.0-36.0) g/dL RDW 13.1 (12.0-15.0) % Plt Count 121 L (130-450) 10^3/uL MPV 9.1 (7.4-11.4) fL Neut # (Auto) 5.6 (1.5-6.6) 10^3/uL Lymph # (Auto) 0.3 L (1.5-3.5) 10^3/uL [place] # (Auto) 0.2 (0.0-1.0) 10^3/uL Eos # (Auto) 0.2 (0.0-0.7) 10^3/uL Baso # (Auto) 0.0 (0.0-0.1) 10^3/uL Absolute Nucleated RBC 0.00 x10^3/uL Nucleated RBC % 0.0 /100WBC Sodium 133 L (135-145) mmol/L Potassium 3.5 (3.5-5.0) mmol/L Chloride 99 L (101-111) mmol/L Carbon Dioxide 25 (21-32) mmol/L Anion Gap 9.0 (6-13) BUN 7 (6-20) mg/dL Creatinine 0.8 (0.6-1.2) mg/dL Estimated GFR (MDRD) 93 (>89) Glucose 83 (70-100) mg/dL POC Whole Bld Glucose 67 L (70 - 100) mg/dL Lactic Acid (0.5-2.2) mmol/L Calcium 7.8 L (8.5-10.3) mg/dL Total Bilirubin (0.2-1.0) mg/dL AST (10-42) IU/L ALT (10-60) IU/L Alkaline Phosphatase (42-121) IU/L Troponin I High Sens (2.3-19.7) ng/L Total Protein (6.7-8.2) g/dL Albumin (3.2-5.5) g/dL Globulin (2.1-4.2) g/dL Albumin/Globulin Ratio (1.0-2.2) Urine Color Urine Clarity (CLEAR) Urine pH (5.0-7.5) PH Ur Specific [place] (1.002-1.030) Urine Protein (NEGATIVE) mg/dL Urine Glucose (UA) (NEGATIVE) mg/dL Urine Ketones (NEGATIVE) mg/dL Urine Occult Blood (NEGATIVE) Urine Nitrite (NEGATIVE) Urine Bilirubin (NEGATIVE) Urine Urobilinogen (NORMAL) E.U./dL Ur Leukocyte Esterase (NEGATIVE) Urine RBC (0-5) /HPF Urine WBC (0-3) /HPF Ur Squamous Epith Cells (<= Few) Urine Bacteria (None Seen) /HPF Urine Culture Comments Nasal Adenovirus (PCR) Nasal B. parapertussis DNA (PCR) Nasal Coronavir 229E PCR Nasal Coronavir HKU1 PCR Nasal Coronavir NL63 PCR Nasal Coronavir OC43 PCR Nasal Enterovir/Rhinovir PCR Nasal Influenza B PCR Nasal Influenza A PCR Nasal Parainfluen 1 PCR Nasal Parainfluen 2 PCR Nasal Parainfluen 3 PCR Nasal Parainfluen 4 PCR Nasal RSV (PCR) Nasal B.pertussis DNA PCR Nasal C.pneumoniae (PCR) Micha Human Metapneumo PCR Nasal M.pneumoniae (PCR) Nasal SARS-CoV-2 (PCR) 03/22/21 03/22/2121 Range/Units 20:26 19:15 16:48 WBC (4.8-10.8) x10^3/uL RBC (4.70-6.10) 10^6/uL Hgb (14.0-18.0) g/dL Hct (42.0-52.0) % MCV (80.0-94.0) fL MCH (27.0-31.0) pg MCHC (32.0-36.0) g/dL RDW (12.0-15.0) % Plt Count (130-450) 10^3/uL MPV (7.4-11.4) fL Neut # (Auto) (1.5-6.6) 10^3/uL Lymph # (Auto) (1.5-3.5) 10^3/uL [place] # (Auto) (0.0-1.0) 10^3/uL Eos # (Auto) (0.0-0.7) 10^3/uL Baso # (Auto) (0.0-0.1) 10^3/uL Absolute Nucleated RBC x10^3/uL Nucleated RBC % /100WBC Sodium (135-145) mmol/L Potassium (3.5-5.0) mmol/L Chloride (101-111) mmol/L Carbon Dioxide (21-32) mmol/L Anion Gap (6-13) BUN (6-20) mg/dL Creatinine (0.6-1.2) mg/dL Estimated GFR (MDRD) (>89) Glucose (70-100) mg/dL POC Whole Bld Glucose 123 H 129 H (70 - 100) mg/dL Lactic Acid 2.1 (0.5-2.2) mmol/L Calcium (8.5-10.3) mg/dL Total Bilirubin (0.2-1.0) mg/dL AST (10-42) IU/L ALT (10-60) IU/L Alkaline Phosphatase (42-121) IU/L Troponin I High Sens (2.3-19.7) ng/L Total Protein (6.7-8.2) g/dL Albumin (3.2-5.5) g/dL Globulin (2.1-4.2) g/dL Albumin/Globulin Ratio (1.0-2.2) Urine Color Urine Clarity (CLEAR) Urine pH (5.0-7.5) PH Ur Specific [place] (1.002-1.030) Urine Protein (NEGATIVE) mg/dL Urine Glucose (UA) (NEGATIVE) mg/dL Urine Ketones (NEGATIVE) mg/dL Urine Occult Blood (NEGATIVE) Urine Nitrite (NEGATIVE) Urine Bilirubin (NEGATIVE) Urine Urobilinogen (NORMAL) E.U./dL Ur Leukocyte Esterase (NEGATIVE) Urine RBC (0-5) /HPF Urine WBC (0-3) /HPF Ur Squamous Epith Cells (<= Few) Urine Bacteria (None Seen) /HPF Urine Culture Comments Nasal Adenovirus (PCR) Nasal B. parapertussis DNA (PCR) Nasal Coronavir 229E PCR Nasal Coronavir HKU1 PCR Nasal Coronavir NL63 PCR Nasal Coronavir OC43 PCR Nasal Enterovir/Rhinovir PCR Nasal Influenza B PCR Nasal Influenza A PCR Nasal Parainfluen 1 PCR Nasal Parainfluen 2 PCR Nasal Parainfluen 3 PCR Nasal Parainfluen 4 PCR Nasal RSV (PCR) Nasal B.pertussis DNA PCR Nasal C.pneumoniae (PCR) Micha Human Metapneumo PCR Nasal M.pneumoniae (PCR) Nasal SARS-CoV-2 (PCR) 03/22/21 03/22/21 03/22/21 Range/Units 15:57 13:00 13:00 WBC (4.8-10.8) x10^3/uL RBC (4.70-6.10) 10^6/uL Hgb (14.0-18.0) g/dL Hct (42.0-52.0) % MCV (80.0-94.0) fL MCH (27.0-31.0) pg MCHC (32.0-36.0) g/dL RDW (12.0-15.0) % Plt Count (130-450) 10^3/uL MPV (7.4-11.4) fL Neut # (Auto) (1.5-6.6) 10^3/uL Lymph # (Auto) (1.5-3.5) 10^3/uL [place] # (Auto) (0.0-1.0) 10^3/uL Eos # (Auto) (0.0-0.7) 10^3/uL Baso # (Auto) (0.0-0.1) 10^3/uL Absolute Nucleated RBC x10^3/uL Nucleated RBC % /100WBC Sodium (135-145) mmol/L Potassium (3.5-5.0) mmol/L Chloride (101-111) mmol/L Carbon Dioxide (21-32) mmol/L Anion Gap (6-13) BUN (6-20) mg/dL Creatinine (0.6-1.2) mg/dL Estimated GFR (MDRD) (>89) Glucose (70-100) mg/dL POC Whole Bld Glucose (70 - 100) mg/dL Lactic Acid 2.0 (0.5-2.2) mmol/L Calcium (8.5-10.3) mg/dL Total Bilirubin (0.2-1.0) mg/dL AST (10-42) IU/L ALT (10-60) IU/L Alkaline Phosphatase (42-121) IU/L Troponin I High Sens (2.3-19.7) ng/L Total Protein (6.7-8.2) g/dL Albumin (3.2-5.5) g/dL Globulin (2.1-4.2) g/dL Albumin/Globulin Ratio (1.0-2.2) Urine Color YELLOW Urine Clarity CLEAR (CLEAR) Urine pH 5.5 (5.0-7.5) PH Ur Specific [place] 1.020 (1.002-1.030) Urine Protein NEGATIVE (NEGATIVE) mg/dL Urine Glucose (UA) NEGATIVE (NEGATIVE) mg/dL Urine Ketones NEGATIVE (NEGATIVE) mg/dL Urine Occult Blood LARGE H (NEGATIVE) Urine Nitrite POSITIVE H (NEGATIVE) Urine Bilirubin NEGATIVE (NEGATIVE) Urine Urobilinogen 0.2 (NORMAL) (NORMAL) E.U./dL Ur Leukocyte Esterase TRACE H (NEGATIVE) Urine RBC 11-25 H (0-5) /HPF Urine WBC 0-3 (0-3) /HPF Ur Squamous Epith Cells NONE SEEN (<= Few) Urine Bacteria Moderate H (None Seen) /HPF Urine Culture Comments INDICATED Nasal Adenovirus (PCR) NOT DETECTED Nasal B. parapertussis DNA (PCR) NOT DETECTED Nasal Coronavir 229E PCR NOT DETECTED Nasal Coronavir HKU1 PCR NOT DETECTED Nasal Coronavir NL63 PCR NOT DETECTED Nasal Coronavir OC43 PCR NOT DETECTED Nasal Enterovir/Rhinovir PCR NOT DETECTED Nasal Influenza B PCR NOT DETECTED Nasal Influenza A PCR NOT DETECTED Nasal Parainfluen 1 PCR NOT DETECTED Nasal Parainfluen 2 PCR NOT DETECTED Nasal Parainfluen 3 PCR NOT DETECTED Nasal Parainfluen 4 PCR NOT DETECTED Nasal RSV (PCR) NOT DETECTED Nasal B.pertussis DNA PCR NOT DETECTED Nasal C.pneumoniae (PCR) NOT DETECTED [place] Human Metapneumo PCR NOT DETECTED Nasal M.pneumoniae (PCR) NOT DETECTED Nasal SARS-CoV-2 (PCR) NOT DETECTED 03/22/21 03/22/21 03/22/21 Range/Units 12:34 12:34 12:34 WBC (4.8-10.8) x10^3/uL RBC (4.70-6.10) 10^6/uL Hgb (14.0-18.0) g/dL Hct (42.0-52.0) % MCV (80.0-94.0) fL MCH (27.0-31.0) pg MCHC (32.0-36.0) g/dL RDW (12.0-15.0) % Plt Count (130-450) 10^3/uL MPV (7.4-11.4) fL Neut # (Auto) (1.5-6.6) 10^3/uL Lymph # (Auto) (1.5-3.5) 10^3/uL [place] # (Auto) (0.0-1.0) 10^3/uL Eos # (Auto) (0.0-0.7) 10^3/uL Baso # (Auto) (0.0-0.1) 10^3/uL Absolute Nucleated RBC x10^3/uL Nucleated RBC % /100WBC Sodium 134 L (135-145) mmol/L Potassium 4.0 (3.5-5.0) mmol/L Chloride 95 L (101-111) mmol/L Carbon Dioxide 26 (21-32) mmol/L Anion Gap 13.0 (6-13) BUN 7 (6-20) mg/dL Creatinine 0.9 (0.6-1.2) mg/dL Estimated GFR (MDRD) 81 L (>89) Glucose 102 H (70-100) mg/dL POC Whole Bld Glucose (70 - 100) mg/dL Lactic Acid 2.7 H (0.5-2.2) mmol/L Calcium 8.7 (8.5-10.3) mg/dL Total Bilirubin 0.9 (0.2-1.0) mg/dL AST 42 (10-42) IU/L ALT 33 (10-60) IU/L Alkaline Phosphatase 112 (42-121) IU/L Troponin I High Sens 7.8 (2.3-19.7) ng/L Total Protein 7.1 (6.7-8.2) g/dL Albumin 4.2 (3.2-5.5) g/dL Globulin 2.9 (2.1-4.2) g/dL Albumin/Globulin Ratio 1.4 (1.0-2.2) Urine Color Urine Clarity (CLEAR) Urine pH (5.0-7.5) PH Ur Specific [place] (1.002-1.030) Urine Protein (NEGATIVE) mg/dL Urine Glucose (UA) (NEGATIVE) mg/dL Urine Ketones (NEGATIVE) mg/dL Urine Occult Blood (NEGATIVE) Urine Nitrite (NEGATIVE) Urine Bilirubin (NEGATIVE) Urine Urobilinogen (NORMAL) E.U./dL Ur Leukocyte Esterase (NEGATIVE) Urine RBC (0-5) /HPF Urine WBC (0-3) /HPF Ur Squamous Epith Cells (<= Few) Urine Bacteria (None Seen) /HPF Urine Culture Comments Nasal Adenovirus (PCR) Nasal B. parapertussis DNA (PCR) Nasal Coronavir 229E PCR Nasal Coronavir HKU1 PCR Nasal Coronavir NL63 PCR Nasal Coronavir OC43 PCR Nasal Enterovir/Rhinovir PCR Nasal Influenza B PCR Nasal Influenza A PCR Nasal Parainfluen 1 PCR Nasal Parainfluen 2 PCR Nasal Parainfluen 3 PCR Nasal Parainfluen 4 PCR Nasal RSV (PCR) Nasal B.pertussis DNA PCR Nasal C.pneumoniae (PCR) Micha Human Metapneumo PCR Nasal M.pneumoniae (PCR) Nasal SARS-CoV-2 (PCR) 03/22/21 Range/Units 12:34 WBC 6.5 (4.8-10.8) x10^3/uL RBC 4.51 L (4.70-6.10) 10^6/uL Hgb 13.8 L (14.0-18.0) g/dL Hct 40.7 L (42.0-52.0) % MCV 90.2 (80.0-94.0) fL MCH 30.6 (27.0-31.0) pg MCHC 33.9 (32.0-36.0) g/dL RDW 13.1 (12.0-15.0) % Plt Count 149 (130-450) 10^3/uL MPV 8.8 (7.4-11.4) fL Neut # (Auto) 6.2 (1.5-6.6) 10^3/uL Lymph # (Auto) 0.2 L (1.5-3.5) 10^3/uL [place] # (Auto) 0.0 (0.0-1.0) 10^3/uL Eos # (Auto) 0.0 (0.0-0.7) 10^3/uL Baso # (Auto) 0.0 (0.0-0.1) 10^3/uL Absolute Nucleated RBC 0.00 x10^3/uL Nucleated RBC % 0.0 /100WBC Sodium (135-145) mmol/L Potassium (3.5-5.0) mmol/L Chloride (101-111) mmol/L Carbon Dioxide (21-32) mmol/L Anion Gap (6-13) BUN (6-20) mg/dL Creatinine (0.6-1.2) mg/dL Estimated GFR (MDRD) (>89) Glucose (70-100) mg/dL POC Whole Bld Glucose (70 - 100) mg/dL Lactic Acid (0.5-2.2) mmol/L Calcium (8.5-10.3) mg/dL Total Bilirubin (0.2-1.0) mg/dL AST (10-42) IU/L ALT (10-60) IU/L Alkaline Phosphatase (42-121) IU/L Troponin I High Sens (2.3-19.7) ng/L Total Protein (6.7-8.2) g/dL Albumin (3.2-5.5) g/dL Globulin (2.1-4.2) g/dL Albumin/Globulin Ratio (1.0-2.2) Urine Color Urine Clarity (CLEAR) Urine pH (5.0-7.5) PH Ur Specific [place] (1.002-1.030) Urine Protein (NEGATIVE) mg/dL Urine Glucose (UA) (NEGATIVE) mg/dL Urine Ketones (NEGATIVE) mg/dL Urine Occult Blood (NEGATIVE) Urine Nitrite (NEGATIVE) Urine Bilirubin (NEGATIVE) Urine Urobilinogen (NORMAL) E.U./dL Ur Leukocyte Esterase (NEGATIVE) Urine RBC (0-5) /HPF Urine WBC (0-3) /HPF Ur Squamous Epith Cells (<= Few) Urine Bacteria (None Seen) /HPF Urine Culture Comments Nasal Adenovirus (PCR) Nasal B. parapertussis DNA (PCR) Nasal Coronavir 229E PCR Nasal Coronavir HKU1 PCR Nasal Coronavir NL63 PCR Nasal Coronavir OC43 PCR Nasal Enterovir/Rhinovir PCR Nasal Influenza B PCR Nasal Influenza A PCR Nasal Parainfluen 1 PCR Nasal Parainfluen 2 PCR Nasal Parainfluen 3 PCR Nasal Parainfluen 4 PCR Nasal RSV (PCR) Nasal B.pertussis DNA PCR Nasal C.pneumoniae (PCR) [place]a Human Metapneumo PCR Nasal M.pneumoniae (PCR) Nasal SARS-CoV-2 (PCR) ABX Reporting Has patient been on IV antibiotics over the past 48 hours?: Yes Sepsis Event Note (H) - Evaluation Current Stage of Sepsis: Severe sepsis Possible source of Sepsis: positive: Genitourinary - Sepsis Criteria Sepsis Criteria: Recorded Heart Rate greater than 90 bpm, Recorded Respiratory Rate greater than 20, MUNITIONS HANDLER: altered consciousness (unrelated to primary neuro pathology), Metabolic: lactate > 2 mmol/L Assessment/Plan - Problem List (1) Sepsis Impression: The concern is for sepsis secondary to urinary tract infection. Although he had no fever or white count, he had rigors, tachycardia, and elevated lactic acid and change in mental status. These have all resolved. He remains on ciprofloxacin and vancomycin given the initial blood cultures grew staph epidermidis and preliminary urine culture is Proteus. We will follow up blood cultures and continue to monitor his CBC. Will de-escalate to oral antibiotics when appropriate. (2) UTI (urinary tract infection) Impression: Urine is for urinary tract infection as a cause of his sepsis. His urinalysis revealed positive nitrites, trace leukocyte esterase and moderate bacteria. He did not have pyuria but the concern is still for infection. Urine culture is growing Proteus and sensitivities are pending. He remains on ciprofloxacin IV with today being day 2. We will follow up urine culture. (3) Bacteremia Impression: 1A set of blood cultures from the same site is growing Staph epidermidis in the anaerobic and aerobic bottle. The other set is negative after 24 hours. We did start him on vancomycin today empirically although there is a chance this could be a contaminant but given his septic presentation, we have decided to treat him empirically. We will follow up the blood cultures and based off his clinical improvement and if the other set remains negative, will consider discontinuing IV antibiotics. (4) Encephalopathy acute Impression: This appears to have resolved. The concern was that he was altered due to the sepsis. We will continue to monitor and treat his underlying infection (5) BPH (benign prostatic hyperplasia) Impression: Stable. Continue Flomax. Qualifiers: Lower urinary tract symptom presence: symptoms present (6) Diabetes mellitus Impression: Stable. His blood glucose has been well controlled. We will continue sliding scale and continue to hold his home Metformin and glipizide. Qualifiers: Diabetes mellitus type: type 2 Diabetes mellitus senior care insulin use: without beauty sales consultant use Diabetes mellitus complication status: with other specified complication Qualified Code(s): E11.69 - Type 2 diabetes mellitus with other specified complication (7) History of coronary artery disease Impression: Stable. We are continuing his home simvastatin, metoprolol, aspirin, Plavix.
[2021-03-23] MEDS: THIAMINE 100 MG TABLET PO SCH (09:05)
[2021-03-23] MEDS: CLOPIDOGREL 75 MG TABLET PO SCH (09:08)
[2021-03-23] MEDS: ASPIRIN EC 81 MG TABLET PO SCH (09:08)
[2021-03-23] MEDS: ENOXAPARIN 40 MG/0.4 ML SYRINGE SUBQ SCH (09:09)
[2021-03-23] MEDS: NICOTINE 14 MG PATCH TOP SCH (09:09)
[2021-03-23] MEDS: CIPROFLOXACIN 400 MG/200 ML 400 MG/200 ML BAG IV SCH ×2 (09:16→20:27)
[2021-03-23] MEDS: METOPROLOL TARTRATE 25 MG TABLET PO SCH ×2 (09:18→20:22)
[2021-03-23] MEDS ORDERED: VANCOMYCIN INJ 2 GM, VANCOMYCIN INJ 500 MG in SODIUM CHLORIDE 0.9% 500 ML IV ONE (10:00)
[2021-03-23 10:38] LABS: ESTIMATED AVERAGE GLUCOSE 126 mg/dL (70-100)
--- NOTE | 2021-03-23 11:38 | PHARMACY PROGRESS NOTE ---
- Therapy Status Therapy status: Awaiting steady state Basis for treatment: Culture result (Staph epi on blood culture; possible contaminant but empirically covering until further results available) Treatment indication: Sepsis, UTI Trough goal: 15-20 Concurrent antibiotics: Ciprofloxacin 400 mg IV bid - LUCERO Risk Risk level for Acute Kidney Injury: Moderate Acute Kidney Injury risk factors: Goal trough >15, Sepsis - Monitoring and Recommendation Clinical response to treatment: I&O Previous 24 hours 03/21/21 03/22/21 03/23/21 23:59 23:59 23:59 Intake Total 2800 2143.333 Output Total 1075 600 Balance 1725 1543.333 Lab Results 03/23/21 03/22/21 05:17 12:34 BUN 7 7 Creatinine 0.8 0.9 Estimated GFR (MDRD) 93 81 L Cultures 03/22/21 12:34 Blood Blood Culture - Preliminary Staphylococcus Epidermidis 03/22/21 13:00 Urine,Random Urine Culture - Preliminary 03/22/21 12:34 Blood Blood Culture (PCR) - Final Monitoring plan: Daily serum creatinine, Suggest ongoing fluid replacement Next trough due (date/time): 03/25/21 at 0930 Areas for additional monitoring: IV to PO when appropriate, Therapy de- escalation based on culture results Pharmacy recommendation: Continue current regime (2.5 gm IV loading dose x 1, followed by 1250 mg IV q12h for estimated trough of ~16 mg/dL)
[2021-03-23] MEDS: ATORVASTATIN 10 MG TABLET PO SCH (20:23)
[2021-03-23] MEDS: PANTOPRAZOLE 40 MG TABLET PO SCH (20:23)
[2021-03-23] MEDS: VANCOMYCIN INJ 1 GM, VANCOMYCIN INJ 250 MG in SODIUM CHLORIDE 0.9% 250 ML IV SCH (21:49)
[2021-03-24] MEDS: SODIUM CHLORIDE 0.9% 1,000 ML IV SCH ×3 (02:34→14:44)
[2021-03-24] MEDS: SODIUM CHLORIDE FLUSH 0.9% 10 ML SYRINGE IVP SCH ×4 (02:35→23:42)
[2021-03-24 06:07] LABS: BASOPHILS % (AUTO) 0.2 %; EOSINOPHILS # (AUTO) 0.1 10^3/uL (0.0-0.7); EOSINOPHILS % (AUTO) 2.2 %; HGB - HEMOGLOBIN 11.5 g/dL (14.0-18.0); LYMPHOCYTES # (AUTO) 0.4 10^3/uL (1.5-3.5); LYMPHOCYTES % (AUTO) 10.8 %; MEAN CORPUSCULAR HEMOGLOBIN 30.4 pg (27.0-31.0); MEAN CORPUSCULAR HGB CONC 33.8 g/dL (32.0-36.0); MEAN CORPUSCULAR VOLUME 89.9 fL (80.0-94.0); MEAN PLATELET VOLUME 9.4 fL (7.4-11.4); MONOCYTES # (AUTO) 0.2 10^3/uL (0.0-1.0); MONOCYTES % (AUTO) 5.9 %; NEUTROPHILS # (AUTO) 3.3 10^3/uL (1.5-6.6); NEUTROPHILS % (AUTO) 80.7 %; PLT - PLATELET COUNT 107 10^3/uL (130-450); RED BLOOD COUNT 3.78 10^6/uL (4.70-6.10); RED CELL DISTRIBUTION WIDTH 13.2 % (12.0-15.0); WHITE BLOOD COUNT 4.1 x10^3/uL (4.8-10.8)
[2021-03-24 06:11] LABS: CREATININE 0.7 mg/dL (0.6-1.2); POTASSIUM 3.3 mmol/L (3.5-5.0)
[2021-03-24] MEDS ORDERED: POTASSIUM CHLORIDE 20 MEQ TABLET PO ONE (07:17)
[2021-03-24] MEDS: ACETAMINOPHEN 325 MG TABLET PO PRN ×2 (08:44→20:15)
[2021-03-24] MEDS: TAMSULOSIN 0.4 MG CAPSULE PO SCH (08:45)
[2021-03-24] MEDS: THIAMINE 100 MG TABLET PO SCH (08:45)
[2021-03-24] MEDS: CLOPIDOGREL 75 MG TABLET PO SCH (08:45)
[2021-03-24] MEDS: NICOTINE 14 MG PATCH TOP SCH (08:45)
[2021-03-24] MEDS: INSULIN ASPART 300 UNIT/3 ML PEN SUBQ SCH ×4 (08:45→20:24)
[2021-03-24] MEDS: ASPIRIN EC 81 MG TABLET PO SCH (08:45)
[2021-03-24] MEDS: CIPROFLOXACIN 400 MG/200 ML 400 MG/200 ML BAG IV SCH ×2 (08:46→20:17)
[2021-03-24] MEDS: ENOXAPARIN 40 MG/0.4 ML SYRINGE SUBQ SCH (08:46)
[2021-03-24] MEDS: METOPROLOL TARTRATE 25 MG TABLET PO SCH ×2 (08:51→20:12)
[2021-03-24] MEDS: VANCOMYCIN INJ 1 GM, VANCOMYCIN INJ 250 MG in SODIUM CHLORIDE 0.9% 250 ML IV SCH ×2 (10:34→21:35)
[2021-03-24] MEDS: polyethylene glycoL 3350 17 GM PACKET PO SCH (10:35)
[2021-03-24] MEDS: amLODIPine 5 MG TABLET PO SCH (11:54)
--- NOTE | 2021-03-24 12:45 | PROVIDER PROGRESS NOTE ---
Subjective - Prog Note Date Prog Note Date: 03/24/21 - Subjective Subjective: He reports feeling better. He did have occasional chills overnight but he thinks that was because he had no bad cover while he was asleep. Denies any dysuria today and reports all urinary symptoms have resolved. He has been eating well. He confirms today that he is a DNR. Current Medications - Current Medications Current Medications: Active Medications Acetaminophen (Acetaminophen 325 Mg Tablet) 650 mg PO Q4HR PRN PRN Reason: Pain 1 to 4 Last Admin: 03/24/21 08:44 Dose: 650 mg Documented by: Amlodipine Besylate (Amlodipine 5 Mg Tablet) 5 mg PO DAILY [facility] Last Admin: 03/24/21 11:54 Dose: 5 mg Documented by: Aspirin (Aspirin Ec 81 Mg Tablet) 243 mg PO DAILY [facility] Last Admin: 03/24/21 08:45 Dose: 243 mg Documented by: Atorvastatin Calcium (Atorvastatin 10 Mg Tablet) 20 mg PO QPM [facility] Last Admin: 03/23/21 20:23 Dose: 20 mg Documented by: Clopidogrel Bisulfate (Clopidogrel 75 Mg Tablet) 75 mg PO DAILY [facility] Last Admin: 03/24/21 08:45 Dose: 75 mg Documented by: Enoxaparin Sodium (Enoxaparin 40 Mg/0.4 Ml Syringe) 40 mg SUBQ DAILY [facility] Last Admin: 03/24/21 08:46 Dose: 40 mg Documented by: Sodium Chloride (Normal Saline 0.9%) 1,000 mls @ 100 mls/hr IV .Q10H [facility] Last Infusion: 03/24/21 11:59 Dose: 100 mls/hr Documented by: Ciprofloxacin (Cipro 400 Mg/200 Ml) 400 mg in 200 mls @ 200 mls/hr IV BID [facility] Last Infusion: 03/24/21 10:00 Dose: Infused Documented by: Vancomycin HCl 1 gm/Vancomycin HCl 250 mg/ Sodium Chloride 250 mls @ 167 mls/hr IV Q12H [facility] Last Infusion: 03/24/21 12:04 Dose: Infused Documented by: Insulin Aspart (Insulin Aspart 300 Unit/3 Ml Pen) 1 - 5 unit SUBQ 0800,1200,1700,2100 [facility]; Protocol Last Admin: 03/24/21 11:54 Dose: Not Given Documented by: Metoprolol Tartrate (Metoprolol Tartrate 25 Mg Tablet) 25 mg PO BID [facility] Last Admin: 03/24/21 08:51 Dose: 25 mg Documented by: Nicotine (Nicotine 14 Mg Patch) 1 patch TOP DAILY [facility] Last Admin: 03/24/21 08:45 Dose: 1 patch Documented by: Pt Own Med (Ursodiol 300mg) 1 each PO QPM [facility] Ondansetron HCl (Ondansetron 4 Mg/2 Ml Vial) 4 mg IVP Q6HR PRN PRN Reason: Nausea / Vomiting Pantoprazole Sodium (Pantoprazole 40 Mg Tablet) 40 mg PO QPM [facility] Last Admin: 03/23/21 20:23 Dose: 40 mg Documented by: Pentazocine-Naloxone Tablet] 1 Each Tablet 1 each PO Q4H PRN PRN Reason: PAIN Polyethylene Glycol (Polyethylene Glycol 3350 17 Gm Packet) 17 gm PO DAILY [facility] Last Admin: 03/24/21 10:35 Dose: 17 gm Documented by: Sodium Chloride (Sodium Chloride Flush 0.9% 10 Ml Syringe) 10 ml IVP PRN PRN PRN Reason: NEEDED PER PROVIDER ORDERS Sodium Chloride (Sodium Chloride Flush 0.9% 10 Ml Syringe) 10 ml IVP 0100,0900,1700 [facility] Last Admin: 03/24/21 08:46 Dose: Not Given Documented by: Tamsulosin HCl (Tamsulosin 0.4 Mg Capsule) 0.4 mg PO DAILY [facility] Last Admin: 03/24/21 08:45 Dose: 0.4 mg Documented by: Thiamine HCl (Thiamine 100 Mg Tablet) 100 mg PO DAILY [facility] Last Admin: 03/24/21 08:45 Dose: 100 mg Documented by: Metoprolol Tartrate [Lopressor] 25 mg PO BID 11/23/13 Metformin HCl [Glucophage] 500 mg PO BIDWM 10/30/20 Pentazocine HCl/Naloxone HCl [Pentazocine-Naloxone Tablet] 1 tab PO Q4H PRN MDD 5 tabs 10/30/20 Pantoprazole [Protonix] 40 mg PO QPM 11/12/20 Clopidogrel [Plavix] 75 mg PO DAILY 03/20/21 Glipizide [Glipizide ER] 5 mg PO BID 03/20/21 Simvastatin [Zocor] 40 mg PO QPM 03/20/21 Thiamine [Vitamin B-1] 100 mg PO DAILY 03/20/21 Aspirin EC [Ecotrin] 243 mg PO DAILY 03/22/21 Tamsulosin [Flomax] 0.4 mg PO DAILY 03/22/21 ursodioL [Actigall] 300 mg PO QPM 03/22/21 Objective - Vital Signs/Intake & Output Reviewed Vital Signs: Yes Vital Signs: Vital Signs x48h Temp Pulse Resp BP BP Pulse Ox 03/24/21 11:43 36.6 C 62 20 169/67 H 97 03/24/21 08:51 170/74 H 03/24/21 08:39 36.6 C 63 18 158/84 H 98 03/24/21 05:00 36.3 C L 58 L 17 156/63 H 98 Intake & Output: Intake & Output 03/21/21 03/22/21 03/23/21 03/24/21 23:59 23:59 23:59 23:59 Intake Total 2800 5435.000 2855.000 Output Total 1075 3300 3000 Balance 1725 2135.000 -145.000 - Objective General Appearance: positive: No acute distress, Alert Eyes Bilateral: positive: Normal inspection, Conjunctivae nml ENT: positive: ENT inspection nml Neck: positive: Nml inspection Respiratory: positive: No respiratory distress. negative: Wheezes, Rales Cardiovascular: positive: Regular rate & rhythm. negative: Tachycardia Abdomen: positive: Non-tender, No distention. negative: Tenderness Skin: positive: Warm, Dry Extremities: positive: No pedal edema Neurologic/Psychiatric: positive: Oriented x3. negative: Disoriented to person, Disoriented to place, Disoriented to time - Lab Results Fish Bones: 03/24/21 05:17 03/24/21 05:17 Other Labs: Lab Results x24hrs 03/24/21 03/24/21 03/24/21 Range/Units 11:15 07:39 05:17 WBC (4.8-10.8) x10^3/uL RBC (4.70-6.10) 10^6/uL Hgb (14.0-18.0) g/dL Hct (42.0-52.0) % MCV (80.0-94.0) fL MCH (27.0-31.0) pg MCHC (32.0-36.0) g/dL RDW (12.0-15.0) % Plt Count (130-450) 10^3/uL MPV (7.4-11.4) fL Neut # (Auto) (1.5-6.6) 10^3/uL Lymph # (Auto) (1.5-3.5) 10^3/uL Ponce # (Auto) (0.0-1.0) 10^3/uL Eos # (Auto) (0.0-0.7) 10^3/uL Baso # (Auto) (0.0-0.1) 10^3/uL Absolute Nucleated RBC x10^3/uL Nucleated RBC % /100WBC Sodium 137 (135-145) mmol/L Potassium 3.3 L (3.5-5.0) mmol/L Chloride 103 (101-111) mmol/L Carbon Dioxide 25 (21-32) mmol/L Anion Gap 9.0 (6-13) BUN 7 (6-20) mg/dL Creatinine 0.7 (0.6-1.2) mg/dL Estimated GFR (MDRD) 109 (>89) Glucose 91 (70-100) mg/dL POC Whole Bld Glucose 101 H 87 (70 - 100) mg/dL Calcium 8.0 L (8.5-10.3) mg/dL TSH (0.34-5.60) uIU/mL 03/24/21 03/23/21 03/23/21 Range/Units 05:17 19:56 17:06 WBC 4.1 L (4.8-10.8) x10^3/uL RBC 3.78 L (4.70-6.10) 10^6/uL Hgb 11.5 L (14.0-18.0) g/dL Hct 34.0 L (42.0-52.0) % MCV 89.9 (80.0-94.0) fL MCH 30.4 (27.0-31.0) pg MCHC 33.8 (32.0-36.0) g/dL RDW 13.2 (12.0-15.0) % Plt Count 107 L (130-450) 10^3/uL MPV 9.4 (7.4-11.4) fL Neut # (Auto) 3.3 (1.5-6.6) 10^3/uL Lymph # (Auto) 0.4 L (1.5-3.5) 10^3/uL Ponce # (Auto) 0.2 (0.0-1.0) 10^3/uL Eos # (Auto) 0.1 (0.0-0.7) 10^3/uL Baso # (Auto) 0.0 (0.0-0.1) 10^3/uL Absolute Nucleated RBC 0.00 x10^3/uL Nucleated RBC % 0.0 /100WBC Sodium (135-145) mmol/L Potassium (3.5-5.0) mmol/L Chloride (101-111) mmol/L Carbon Dioxide (21-32) mmol/L Anion Gap (6-13) BUN (6-20) mg/dL Creatinine (0.6-1.2) mg/dL Estimated GFR (MDRD) (>89) Glucose (70-100) mg/dL POC Whole Bld Glucose 112 H 88 (70 - 100) mg/dL Calcium (8.5-10.3) mg/dL TSH (0.34-5.60) uIU/mL 03/23/21 Range/Units 05:17 WBC (4.8-10.8) x10^3/uL RBC (4.70-6.10) 10^6/uL Hgb (14.0-18.0) g/dL Hct (42.0-52.0) % MCV (80.0-94.0) fL MCH (27.0-31.0) pg MCHC (32.0-36.0) g/dL RDW (12.0-15.0) % Plt Count (130-450) 10^3/uL MPV (7.4-11.4) fL Neut # (Auto) (1.5-6.6) 10^3/uL Lymph # (Auto) (1.5-3.5) 10^3/uL Ponce # (Auto) (0.0-1.0) 10^3/uL Eos # (Auto) (0.0-0.7) 10^3/uL Baso # (Auto) (0.0-0.1) 10^3/uL Absolute Nucleated RBC x10^3/uL Nucleated RBC % /100WBC Sodium (135-145) mmol/L Potassium (3.5-5.0) mmol/L Chloride (101-111) mmol/L Carbon Dioxide (21-32) mmol/L Anion Gap (6-13) BUN (6-20) mg/dL Creatinine (0.6-1.2) mg/dL Estimated GFR (MDRD) (>89) Glucose (70-100) mg/dL POC Whole Bld Glucose (70 - 100) mg/dL Calcium (8.5-10.3) mg/dL TSH 1.00 (0.34-5.60) uIU/mL ABX Reporting Has patient been on IV antibiotics over the past 48 hours?: Yes Sepsis Event Note (H) - Evaluation Current Stage of Sepsis: Severe sepsis Possible source of Sepsis: positive: Genitourinary - Sepsis Criteria Sepsis Criteria: Recorded Heart Rate greater than 90 bpm, Recorded Respiratory Rate greater than 20, CHIEF NURSE: altered consciousness (unrelated to primary neuro pathology), Metabolic: lactate > 2 mmol/L Assessment/Plan - Problem List (1) Sepsis Impression: This appears to be secondary to a urinary tract infection and is now resolved. His blood cultures did grow staph epidermidis in one of the sets but I suspect this is likely a contaminant although repeat cultures are pending. He does remain on ciprofloxacin and will switch to p.o. antibiotics tomorrow in preparation for discharge. (2) UTI (urinary tract infection) Impression: This appears to be the source of his sepsis. Although urinalysis no pyuria, he did have nitrites, leukocyte esterase, and bacteria. Urine culture is growing Proteus and he did have symptoms initially of dysuria which have since resolved. We will monthly rifaximin IV for 1 more day and switch to p.o. ciprofloxacin tomorrow in preparation for discharge. (3) Bacteremia Impression: A set of blood cultures is growing staph epidermidis which I suspect is likely contaminant given the other set is negative to date. He is clinically improved and I think his initial presentation is related to the urinary tract infection other than bacteremia. He had been started on vancomycin empirically yesterday we will continue this until repeat blood cultures are negative. If repeat cultures negative for 24 hours and he can likely be discharged tomorrow on p.o. ciprofloxacin for the urinary tract infection. (4) Encephalopathy acute Impression: This was likely related to the sepsis and urinary tract infection. He appears back to his baseline now. (5) BPH (benign prostatic hyperplasia) Impression: Stable. Continue Flomax. Qualifiers: Lower urinary tract symptom presence: symptoms present (6) Diabetes mellitus Impression: His blood sugars have been well controlled with diet alone. We will likely is continue his glipizide on discharge and even consider discontinuing the Metformi n. I do wonder if he could have had hypoglycemic episodes at home causing him to have chills and the confusion. Especially given his A1c is 6% and his blood glucose has been well controlled here. 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 Continue home medications. (8) HTN (hypertension) Impression: His blood pressure has been elevated with systolic in the 150s. We will continue metoprolol and add amlodipine 5 mg today.
[2021-03-24] MEDS: PANTOPRAZOLE 40 MG TABLET PO SCH (20:12)
[2021-03-24] MEDS: ATORVASTATIN 10 MG TABLET PO SCH (20:12)
[2021-03-24] MEDS ORDERED: URSODIOL 300 MG PO SCH (21:00)
[2021-03-25] MEDS: NYSTATIN POWDER 15 GM TOP SCH ×2 (00:21→08:52)
[2021-03-25 04:50] LABS: BASOPHILS % (AUTO) 0.4 %; EOSINOPHILS # (AUTO) 0.1 10^3/uL (0.0-0.7); HCT - HEMATOCRIT 33.5 % (42.0-52.0); LYMPHOCYTES # (AUTO) 0.8 10^3/uL (1.5-3.5); LYMPHOCYTES % (AUTO) 17.3 %; MEAN CORPUSCULAR HEMOGLOBIN 30.1 pg (27.0-31.0); MEAN CORPUSCULAR HGB CONC 32.8 g/dL (32.0-36.0); MEAN CORPUSCULAR VOLUME 91.8 fL (80.0-94.0); MEAN PLATELET VOLUME 9.2 fL (7.4-11.4); MONOCYTES # (AUTO) 0.4 10^3/uL (0.0-1.0); MONOCYTES % (AUTO) 7.7 %; NEUTROPHILS # (AUTO) 3.3 10^3/uL (1.5-6.6); NEUTROPHILS % (AUTO) 71.9 %; PLT - PLATELET COUNT 121 10^3/uL (130-450); RED BLOOD COUNT 3.65 10^6/uL (4.70-6.10); RED CELL DISTRIBUTION WIDTH 13.4 % (12.0-15.0); WHITE BLOOD COUNT 4.6 x10^3/uL (4.8-10.8)
[2021-03-25 04:55] LABS: CALCIUM 8.1 mg/dL (8.5-10.3); CREATININE 0.8 mg/dL (0.6-1.2); POTASSIUM 3.4 mmol/L (3.5-5.0)
[2021-03-25] MEDS: INSULIN ASPART 300 UNIT/3 ML PEN SUBQ SCH ×2 (07:44→12:22)
[2021-03-25] MEDS ORDERED: POTASSIUM CHLORIDE 20 MEQ TABLET PO SCH (08:00)
[2021-03-25] MEDS: NICOTINE 14 MG PATCH TOP SCH (08:45)
[2021-03-25] MEDS: polyethylene glycoL 3350 17 GM PACKET PO SCH (08:47)
[2021-03-25] MEDS: ENOXAPARIN 40 MG/0.4 ML SYRINGE SUBQ SCH (08:48)
[2021-03-25] MEDS: METOPROLOL TARTRATE 25 MG TABLET PO SCH (08:49)
[2021-03-25] MEDS: THIAMINE 100 MG TABLET PO SCH (08:49)
[2021-03-25] MEDS: amLODIPine 5 MG TABLET PO SCH (08:50)
[2021-03-25] MEDS: CLOPIDOGREL 75 MG TABLET PO SCH (08:50)
[2021-03-25] MEDS: TAMSULOSIN 0.4 MG CAPSULE PO SCH (08:50)
[2021-03-25] MEDS: ASPIRIN EC 81 MG TABLET PO SCH (08:50)
[2021-03-25] MEDS: SODIUM CHLORIDE FLUSH 0.9% 10 ML SYRINGE IVP SCH (08:54)
[2021-03-25] MEDS ORDERED: CIPROFLOXACIN 250 MG TABLET PO SCH (09:00)
--- NOTE | 2021-03-25 10:42 | Discharge Plan ---
Discharge Plan Problem Reviewed?: Yes Disposition: Home Health Service Condition: Stable Prescriptions: Ciprofloxacin [Cipro] 500 mg PO BID 4 Days #16 tablet Potassium Chloride [K-Dur] 20 meq PO DAILYWM #30 tablet polyethylene glycoL 3350 [Miralax] 17 gm PO DAILY #14 packet Diet: Diabetic Activity Restrictions: Activity as Tolerated Assistance Devices: [facility] Concerns: You were admitted to the hospital because of urinary tract infection. You were treated with IV antibiotics and you have since improved. We have switched you to a pill form of the same antibiotic called ciprofloxacin. You will need 4 more days of this to complete 7 days of therapy. We did check your blood to ensure that the bacteria was not growing there. A set of these cultures did grow bacteria but this appears to be a contaminant from your skin and not a true infection. We checked your blood again and it is clear. Your blood sugars have been well controlled during this hospitalization. You have not required any insulin or medications. We have recommended that you stop the glipizide as this can cause low blood sugars. Plan of Treatment: Please take ciprofloxacin 500 mg twice daily for 4 more days to complete 7 days of therapy for your urinary tract infection. Please also stop taking glipizide as your blood sugars have been well controlle d.. I am also worried that the glipizide may be causing you to have low blood sugars which can increase your risk of falls. You may continue to take the Metformin and follow-up with your primary care provider. I also encourage you to check your blood sugars every morning and before some meals at minimum. This is to ensure that your blood sugar is not getting too low or high. If you also develop symptoms of the shakes or chills then you should immediately check your blood sugar to ensure that it is not low. If it is less than 70 then you should have juice and something to eat. Care Goals: The goal is to treat the underlying urinary tract infection. Assessment: The patient expressed understanding of the treatment plan. Additional Instructions or Follow Up instructions: Please follow-up with your primary care provider in 1 week. If your blood pressure is still elevated they can consider adding a second blood pressure medication. Please return if you develop any fevers, chills or urinary symptoms such as burning or blood in your urine. Follow-Up Care: Home Health - PT No Smoking: If you smoke, Please STOP! Call for help. Follow-up with: Durga Hanley MD [Primary Care Provider] -
--- NOTE | 2021-03-25 10:55 | DISCHARGE SUMMARY ---
"Discharge Summary Admit Date: 03/22/21 Discharge Date: 03/25/21 Discharging Provider: Gary Mendoza Primary Care Provider: Durga Hanley Code Status: Do Not Attempt Resuscitation Condition at Discharge: Stable Discharge Disposition: Home Health Service - DIAGNOSES Admission Diagnoses: Sepsis UTI Diabetes mellitus Hypertension History of coronary artery disease Discharge Diagnoses with Status of Each Condition: Sepsis - resolved. UTI - improved. Coag negative staph bacteremia - resolved. Encephalopathy - resolved. BPH - stable. Diabetes mellitus, type II - stable. History of coronary artery disease - stable. Hypertension - stable. - HPI History of Present Illness: H&P per Dr. Newsome: Patient is 81-year-old male who has presented in the ED for 2 days in a row. On 03/20, he presented with dysnea, tiredness and weakness. He also reported a vague nonradiating chest pain. It was reported that he had not been eating or drinking for a few days. EMS found him hypotensive with positive orthostatics. SBP was 60 standing. Work up at the which time included CBC, BMP, EKG, CXR and UA were unremarkable. He was infused a total of 3L of NS after which he felt better. He was able to ambulate with no difficulties. He was discharged home around 2 am on 03/21. Today, his brother who lives near [place], [place] called to check on him after learning that the patient was in the hospital. The patient sounded confused so he called 911. EMS found him in rigors so he was brought back to the ED. Though afebrile, he was tachycardic with heart rate of 124, tachypnea with respiratory rate of 25. He also had a lactic acid of 2.7 and UA showed moderate bacteria, positive nitrites and leukocyte esterase for which a urine culture was indicates. As a result he was presented for admission for further treatment. At bedside he denied chest pain, dyspnea, abdominal pain, flank pain, nausea or vomiting. He received a 1L bolus of normal saline in the ED and a dose of Cipro 400mg IV after which he reported feeling better. - CONSULTS | PROCEDURES Consultations: PT - HOSPITAL COURSE Hospital Course: He was admitted to the floor for sepsis secondary to urinary tract infection. He was started on ciprofloxacin IV empirically. Lactic acid was initially elevated at 2.7 and this resolved with IV fluids. His encephalopathy also resolved as you treated him with IV antibiotics and fluids. Initial blood cultures grew coag negative staph, staph epidermidis and staph hemolyticus, and one of the sets which was felt to likely be a contaminant. Initially he was started on vancomycin when one of the sets grew the staph but this was later discontinued and repeat cultures have been negative to date. His urine culture grew Proteus which was sensitive to ciprofloxacin and he was switched to p.o. ciprofloxacin in preparation for discharge. He was discharged with 4 more days of antibiotics to complete 7 days of therapy for a urinary tract infection. I also did discuss with infectious disease regarding the bacteremia and they also agree that this is likely a contaminant. It was also noted during this stay that his blood glucose has been well controlled without need for insulin or oral hypoglycemic agents. He was asked to discontinue glipizide on discharge as there was concern this may have been causing him to have hypoglycemic episodes which could have been contributing to his chills/shakes. He was asked to continue Metformin and to follow-up with his primary care physician. He was also asked to check his blood sugars at least every morning and ideally before some meals. His blood pressure has been elevated here during his hospitalization with systolics in the 140s. We did initially add amlodipine 5 mg daily but after review of the chart it was noted that he was seen previously in the emergency department for hypotension and orthostasis and so the amlodipine was discontinued. He was asked to follow-up with his primary care physician in 1 week to monitor his blood pressure and if it is still elevated at that time then a second antihypertensive can be considered. He was seen by physical therapy prior to discharge and home health PT is recommended and so a referral was placed. - ALLERGIES Allergies/Adverse Reactions: Allergies Allergy/AdvReac Type Severity Reaction Status Date / Time amoxicillin trihydrate * AdvReac Nausea Verified 03/22/21 12:09 [From Augmentin] potassium clavulanate * AdvReac Nausea Verified 03/22/21 12:09 [From Augmentin] - MEDICATIONS Home Medications: Ambulatory Orders Medication Instructions Recorded Confirmed Metoprolol Tartrate [Lopressor] 25 mg PO BID 11/23/13 03/22/21 Metformin HCl [Glucophage] 500 mg PO BIDWM 10/30/20 03/22/21 Pentazocine HCl/Naloxone HCl 1 tab PO Q4H PRN MDD 5 tabs 10/30/20 03/22/21 [Pentazocine-Naloxone Tablet] Pantoprazole [Protonix] 40 mg PO QPM 11/12/20 03/22/21 Clopidogrel [Plavix] 75 mg PO DAILY 03/20/21 03/22/21 Simvastatin [Zocor] 40 mg PO QPM 03/20/21 03/22/21 Thiamine [Vitamin B-1] 100 mg PO DAILY 03/20/21 03/22/21 Aspirin EC [Ecotrin] 243 mg PO DAILY 03/22/21 03/22/21 Tamsulosin [Flomax] 0.4 mg PO DAILY 03/22/21 03/22/21 ursodioL [Actigall] 300 mg PO QPM 03/22/21 03/22/21 Ciprofloxacin [Cipro] 500 mg PO BID 4 Days #16 tablet 03/25/21 Potassium Chloride [K-Dur] 20 meq PO DAILYWM #30 tablet 03/25/21 polyethylene glycoL 3350 [Miralax] 17 gm PO DAILY #14 packet 03/25/21 - PHYSICAL EXAM AT DISCHARGE General Appearance: positive: No acute distress, Alert Eyes Bilateral: positive: Normal inspection, Conjunctivae nml ENT: positive: ENT inspection nml Neck: positive: Nml inspection Respiratory: positive: No respiratory distress. negative: Wheezes, Rales Cardiovascular: positive: Regular rate & rhythm. negative: Tachycardia, Systolic murmur Abdomen: positive: Non-tender, No distention. negative: Tenderness Skin: positive: Warm, Dry Extremities: positive: No pedal edema Neurologic/Psychiatric: positive: Oriented x3. negative: Disoriented to person, Disoriented to place, Disoriented to time - LABS Result Diagrams: 03/25/21 04:30 03/25/21 04:30 - SEPSIS Current Stage of Sepsis: Resolved Possible source of Sepsis: Genitourinary Sepsis Criteria: Recorded Heart Rate greater than 90 bpm, Recorded Respiratory Rate greater than 20, RN SURGICAL PCU: altered consciousness (unrelated to primary neuro pathology), Metabolic: lactate > 2 mmol/L - FOLLOW UP Follow Up: He was asked to follow-up with his primary care provider in 1 week. His blood pressure will be monitored as he may need a second antihypertensive if he remains hypertensive. He will also need his blood glucose monitored after discontinuation of the glipizide. - TIME SPENT Time Spent in Discharge (Minutes): 34"
[2021-03-25 16:13] VITALS: BP 177/78
== END 2021-03-25 15:25 | disposition home health service (06) | DRG 872 ==
LOC: EDUNIT# → ED 11:45 → MS3 14:26
PROVIDERS: ADMIT Internal Medicine; ATTEND Internal Medicine
DX: A41.9 Sepsis, unspecified organism (principal); A41.89 Other specified sepsis; N39.0 Urinary tract infection, site not specified; G93.40 Encephalopathy, unspecified; F17.200 Nicotine dependence, unspecified, uncomplicated; R65.20 Severe sepsis without septic shock; E11.42 Type 2 diabetes mellitus with diabetic polyneuropathy; Z20.822 Contact with and (suspected) exposure to COVID-19; I10 Essential (primary) hypertension; I25.10 Atherosclerotic heart disease of native coronary artery without angina pectoris; N40.0 Benign prostatic hyperplasia without lower urinary tract symptoms; F17.220 Nicotine dependence, chewing tobacco, uncomplicated; K21.9 Gastro-esophageal reflux disease without esophagitis; I25.2 Old myocardial infarction; Z79.02 Long term (current) use of antithrombotics/antiplatelets; Z79.84 Long term (current) use of oral hypoglycemic drugs; Z79.82 Long term (current) use of aspirin; Z79.899 Other long term (current) drug therapy
CPT/HCPCS: 36415; 71045; 80048; 80053; 81001; 83036; 83605; 84443; 84484; 85025; 87040; 87077; 87086; 87150; 87181; 87631; 93005; 96360; 97161; 99285; A9270; J1650; J3370; 0202U; 80202

== ENCOUNTER 2021-05-08 13:15 | Emergency (ER) | payer MEDICARE, OTHER ==
--- NOTE | 2021-05-08 13:41 | ED Physician Documentation ---
History of Present Illness - Stated complaint Stated Complaint: DIZZY/FEELING ILL - Chief complaint Chief Complaint: General - History obtained from History obtained from: Patient - Additonal information Additional information: 81-year-old gentleman with type 2 diabetes, history of coronary disease status post stenting presents with feeling "horrible" for the last 2 days. Specifically is presyncopal, dizzy and generally weak. Denies pain, chest pain, shortness of breath, pedal edema. No urinary complaints, shakes or chills. Recent admission for urosepsis but no UTI symptoms or rigors. Recently transitioned from glipizide to Metformin for borderline hypoglycemia it sounds like. Review of Systems Ten Systems: 10 systems reviewed and negative Constitutional: reports: Fatigue Cardiac: denies: Chest pain / pressure, Palpitations Respiratory: denies: Dyspnea, Cough PD PAST MEDICAL HISTORY - Past Medical History Cardiovascular: Coronary artery disease, [place] Respiratory: None Neuro: Peripheral neuropathy Endocrine/Autoimmune: Type 2 diabetes GI: GERD, Diverticulitis : Benign prostate hypertrophy HEENT: None Psych: None Musculoskeletal: Osteoarthritis, Chronic back pain Derm: None - Past Surgical History Past Surgical History: Yes General: Cholecystectomy, Bowel surgery Cardiovascular: Coronary stent - Present Medications Home Medications: Ambulatory Orders Medication Instructions Recorded Confirmed Metoprolol Tartrate [Lopressor] 25 mg PO BID 11/23/13 03/22/21 Metformin HCl [Glucophage] 500 mg PO BIDWM 10/30/20 03/22/21 Pentazocine HCl/Naloxone HCl 1 tab PO Q4H PRN MDD 5 tabs 10/30/20 03/22/21 [Pentazocine-Naloxone Tablet] Pantoprazole [Protonix] 40 mg PO QPM 11/12/20 03/22/21 Clopidogrel [Plavix] 75 mg PO DAILY 03/20/21 03/22/21 Simvastatin [Zocor] 40 mg PO QPM 03/20/21 03/22/21 Thiamine [Vitamin B-1] 100 mg PO DAILY 03/20/21 03/22/21 Aspirin EC [Ecotrin] 243 mg PO DAILY 03/22/21 03/22/21 Tamsulosin [Flomax] 0.4 mg PO DAILY 03/22/21 03/22/21 ursodioL [Actigall] 300 mg PO QPM 08/02/21 08/02/21 Ciprofloxacin [Cipro] 500 mg PO BID 4 Days #16 tablet 03/25/21 Potassium Chloride [K-Dur] 20 meq PO DAILYWM #30 tablet 03/25/21 polyethylene glycoL 3350 [Miralax] 17 gm PO DAILY #14 packet 03/25/21 - Allergies Allergies/Adverse Reactions: Allergies Allergy/AdvReac Type Severity Reaction Status Date / Time amoxicillin trihydrate * AdvReac Nausea Verified 05/08/21 13:23 [From Augmentin] potassium clavulanate * AdvReac Nausea Verified 05/08/21 13:23 [From Augmentin] - Social History Does the pt smoke?: Yes Smoking Status: Former smoker Does the pt drink ETOH?: Yes Does the pt have substance abuse?: No - Immunizations Immunizations are current?: No Immunizations: TDAP >10years/unknown - POLST Patient has POLST: No POLST Status: Full Code PD ED PE NORMAL - Vitals Vital signs reviewed: Yes - General General: Alert and oriented X 3, No acute distress - HEENT HEENT: PERRL, EOMI - Neck Neck: Supple, no meningeal sign, No bony TTP - Cardiac Cardiac: RRR, No murmur - Respiratory Respiratory: No respiratory distress, Clear bilaterally - Abdomen Abdomen: Non tender - Back Back: No CVA TTP, No spinal TTP - Derm Derm: Normal color, Warm and dry - Extremities Extremities: No edema, No calf tenderness / cord - Neuro Neuro: Alert and oriented X 3, Normal speech - Psych Psych: Normal mood, Normal affect Results - Vitals Vitals: Vital Signs - 24 hr 05/08/21 05/08/21 05/08/21 13:19 14:09 14:23 Temperature 36.5 C Heart Rate 91 76 77 Respiratory 19 12 10 L Rate Blood Pressure 158/100 H 158/93 H 158/93 H O2 Saturation 100 94 94 Oxygen O2 Source Room air - EKG (time done) 1350 Rate: Rate (enter#) (79) Rhythm: NSR [place]: Normal Intervals: Other (LAFB) QRS: Low voltage Ischemia: Non specific changes. No: ST elevation c/w ischemia, ST depression - Labs Labs: Laboratory Tests 05/08/21 05/08/21 14:26 14:26 WBC 6.3 RBC 4.62 L Hgb 13.7 L Hct 41.1 L MCV 89.0 MCH 29.7 MCHC 33.3 RDW 12.5 Plt Count 223 MPV 8.6 Neut # (Auto) 4.9 Lymph # (Auto) 0.9 L [place] # (Auto) 0.3 Eos # (Auto) 0.1 Baso # (Auto) 0.0 Absolute Nucleated RBC 0.00 Nucleated RBC % 0.0 Sodium 129 L Potassium 4.1 Chloride 91 L Carbon Dioxide 28 Anion Gap 10.0 BUN 7 Creatinine 0.7 Estimated GFR (MDRD) 109 Glucose 118 H Calcium 8.9 Phosphorus 3.7 Magnesium 1.8 Total Bilirubin 0.5 AST 36 ALT 34 Alkaline Phosphatase 117 Total Protein 7.2 Albumin 4.0 Globulin 3.2 Albumin/Globulin Ratio 1.3 PD MEDICAL DECISION MAKING - ED course ED course: 81-year-old gentleman presents with nonspecific ill feeling. Normal exam and relatively unremarkable vital signs other than hypertension. Work-up dem onstrates modestly worsened hyponatremia, otherwise everything looks okay. Advised a little extra salt today and close return precautions. Updated daughter by phone. Departure - Departure Disposition: Home, Self Care Clinical Impression: Hyponatremia Diabetes mellitus Qualifiers: Diabetes mellitus type: type 2 Diabetes mellitus retirement insulin use: without retirement use Diabetes mellitus complication status: without complication Qualified Code(s): E11.9 - Type 2 diabetes mellitus without complications HTN (hypertension) Qualifiers: Hypertension type: unspecified Qualified Code(s): I10 - Essential (primary) hypertension Condition: Good Record reviewed to determine appropriate education?: Yes Instructions: ED Hyponatremia Comments: Sodium was 129, a bit low, otherwise everything looking ok, blood sugar was 118. Eat a bit more salt than usual today. Call your doctor to arrange a follow-up appointment, make the next available appointment. In the interim, return anytime if worse or if new symptoms develop.
[2021-05-08 14:31] LABS: BASOPHILS % (AUTO) 0.2 %; EOSINOPHILS # (AUTO) 0.1 10^3/uL (0.0-0.7); EOSINOPHILS % (AUTO) 1.7 %; HCT - HEMATOCRIT 41.1 % (42.0-52.0); HGB - HEMOGLOBIN 13.7 g/dL (14.0-18.0); LYMPHOCYTES # (AUTO) 0.9 10^3/uL (1.5-3.5); LYMPHOCYTES % (AUTO) 14.5 %; MEAN CORPUSCULAR HEMOGLOBIN 29.7 pg (27.0-31.0); MEAN CORPUSCULAR HGB CONC 33.3 g/dL (32.0-36.0); MEAN PLATELET VOLUME 8.6 fL (7.4-11.4); MONOCYTES # (AUTO) 0.3 10^3/uL (0.0-1.0); MONOCYTES % (AUTO) 5.4 %; NEUTROPHILS # (AUTO) 4.9 10^3/uL (1.5-6.6); PLT - PLATELET COUNT 223 10^3/uL (130-450); RED BLOOD COUNT 4.62 10^6/uL (4.70-6.10); RED CELL DISTRIBUTION WIDTH 12.5 % (12.0-15.0); WHITE BLOOD COUNT 6.3 x10^3/uL (4.8-10.8)
[2021-05-08 14:48] LABS: ALBUMIN/GLOBULIN RATIO 1.3 (1.0-2.2); BILIRUBIN,TOTAL 0.5 mg/dL (0.2-1.0); CALCIUM 8.9 mg/dL (8.5-10.3); CREATININE 0.7 mg/dL (0.6-1.2); MAGNESIUM 1.8 mg/dL (1.7-2.8); PHOSPHORUS 3.7 mg/dL (2.5-4.6); POTASSIUM 4.1 mmol/L (3.5-5.0); TOTAL PROTEIN 7.2 g/dL (6.7-8.2)
[2021-05-08 15:19] VITALS: BP 150/90
== END 2021-05-08 15:18 | disposition home or self-care (01) ==
LOC: ED 13:15
DX: E87.1 Hypo-osmolality and hyponatremia (principal); E11.42 Type 2 diabetes mellitus with diabetic polyneuropathy; I10 Essential (primary) hypertension; Z79.84 Long term (current) use of oral hypoglycemic drugs; Z87.891 Personal history of nicotine dependence
CPT/HCPCS: 36415; 80053; 83735; 84100; 85025; 93005; 99283; 99284

== ENCOUNTER 2022-06-01 14:09 | Emergency (ER) | payer MEDICARE, OTHER ==
--- NOTE | 2022-06-01 14:16 | ED Physician Documentation ---
History of Present Illness - Stated complaint Stated Complaint: SOA/CHILLS - History obtained from History obtained from: Patient, EMS - Additonal information Additional information: This is an 82-year-old gentleman presents by ambulance. He complains of a productive cough that is subacute to chronic but more recently an increase in his cough as well as shaking chills starting in the last day or so. He has had some epigastric pain with this starting today. He is short of breath and generally weak. [place] He has a history of coronary disease, [place], type 2 diabetes. Prehospital vital signs were notable for mild tachycardia and a blood sugar in the low 200s. Review of Systems Ten Systems: 10 systems reviewed and negative Constitutional: reports: Fever, Chills Nose: reports: Reviewed and negative Cardiac: reports: Reviewed and negative Respiratory: reports: Dyspnea, Cough PD PAST MEDICAL HISTORY - Past Medical History Cardiovascular: Coronary artery disease, [place] Respiratory: None Neuro: Peripheral neuropathy Endocrine/Autoimmune: Type 2 diabetes GI: GERD, Diverticulitis : Benign prostate hypertrophy HEENT: None Psych: None Musculoskeletal: Osteoarthritis, Chronic back pain Derm: None - Past Surgical History Past Surgical History: Yes General: Cholecystectomy, Bowel surgery Cardiovascular: Coronary stent - Present Medications Home Medications: Ambulatory Orders Medication Instructions Recorded Confirmed Metoprolol Tartrate [Lopressor] 25 mg PO BID 11/23/13 01/05/22 Metformin HCl [Glucophage] 500 mg PO BIDWM 10/30/20 01/05/22 Clopidogrel [Plavix] 75 mg PO DAILY 03/20/21 01/05/22 Thiamine [Vitamin B-1] 100 mg PO DAILY 03/20/21 01/05/22 Aspirin EC [Ecotrin] 325 mg PO BID 03/22/21 01/05/22 Tamsulosin [Flomax] 0.4 mg PO DAILY 03/22/21 01/05/22 - Allergies Allergies/Adverse Reactions: Allergies Allergy/AdvReac Type Severity Reaction Status Date / Time amoxicillin trihydrate * AdvReac Nausea Verified 06/01/22 14:20 [From Augmentin] potassium clavulanate * AdvReac Nausea Verified 06/01/22 14:20 [From Augmentin] - Social History Does the pt smoke?: Yes Smoking Status: Former smoker Does the pt drink ETOH?: Yes Does the pt have substance abuse?: No - Immunizations Immunizations are current?: No Immunizations: TDAP >10years/unknown - POLST Patient has POLST: No POLST Status: Full Code PD ED PE NORMAL - Vitals Vital signs reviewed: Yes - General General: Alert and oriented X 3, No acute distress (He smells of cannabis although he denies this. Bedside nurse corroborates my olfactory suspicion.), Other (Somewhat cantankerous gentleman who appears well, he appears his stated age. He is generally weak and unable to sit up unassisted.) - HEENT HEENT: PERRL, EOMI - Neck Neck: Supple, no meningeal sign, No bony TTP - Cardiac Cardiac: RRR, No murmur, Other (Distant heart sounds) - Respiratory Respiratory: No respiratory distress, Clear bilaterally - Abdomen Abdomen: Non tender - Back Back: No CVA TTP, No spinal TTP - Derm Derm: Normal color, Warm and dry - Extremities Extremities: No edema, No calf tenderness / cord - Neuro Neuro: Alert and oriented X 3, Normal speech Results - Vitals Vitals: Vital Signs - 24 hr 06/01/22 06/01/22 06/01/22 14:20 15:24 15:41 Temperature 37.5 C Heart Rate 110 H 120 H 117 H Respiratory 20 14 23 Rate Blood Pressure 126/60 129/60 101/62 O2 Saturation 96 98 92 If not protocol : Oxygen Flow, liters/minute 06/01/22 06/01/22 06/01/22 15:43 16:24 16:30 Temperature 37.4 C Heart Rate 117 H 99 100 Respiratory 20 28 H 22 Rate Blood Pressure 101/62 109/91 H O2 Saturation 92 87 L 96 If not protocol 2 : Oxygen Flow, liters/minute 06/01/22 06/01/22 06/01/22 17:00 17:30 18:00 Temperature Heart Rate 100 103 H 99 Respiratory 18 19 20 Rate Blood Pressure 110/57 L 99/66 105/62 O2 Saturation 97 97 98 If not protocol 2 2 2 : Oxygen Flow, liters/minute 06/01/22 06/01/22 06/01/22 18:30 19:00 21:00 Temperature 37.4 C Heart Rate 102 H 99 90 Respiratory 24 16 18 Rate Blood Pressure 108/62 95/52 L 93/57 L O2 Saturation 96 98 96 If not protocol 2 2 : Oxygen Flow, liters/minute 06/01/22 06/01/22 06/01/22 21:30 22:30 23:00 Temperature Heart Rate 95 92 90 Respiratory 18 17 14 Rate Blood Pressure 99/58 L 120/67 121/59 L O2 Saturation 95 99 99 If not protocol 2 : Oxygen Flow, liters/minute 06/01/22 06/02/22 06/02/22 23:23 00:00 00:30 Temperature Heart Rate 92 92 96 Respiratory 15 14 16 Rate Blood Pressure 125/77 126/79 106/75 O2 Saturation 100 98 100 If not protocol 2 : Oxygen Flow, liters/minute 06/02/22 06/02/22 06/02/22 01:00 01:30 02:00 Temperature Heart Rate 89 87 85 Respiratory 16 16 15 Rate Blood Pressure 113/64 116/66 126/67 O2 Saturation 98 98 95 If not protocol : Oxygen Flow, liters/minute 06/02/22 06/02/22 06/02/22 04:30 05:00 05:30 Temperature Heart Rate 94 96 89 Respiratory 20 18 18 Rate Blood Pressure 144/70 H 126/64 137/66 H O2 Saturation 98 98 98 If not protocol : Oxygen Flow, liters/minute 06/02/22 06/02/22 06/02/22 06:00 06:30 07:27 Temperature 36.8 C Heart Rate 92 92 Respiratory 16 17 Rate Blood Pressure 139/68 H 155/75 H O2 Saturation 98 99 If not protocol : Oxygen Flow, liters/minute Oxygen O2 Source Room air Oxygen Flow Rate 2 - EKG (time done) 1418 Rate: Rate (enter#) (111) Rhythm: Sinus tachycardia [place]: Normal Intervals: Normal MT QRS: Normal Ischemia: Q waves. No: ST elevation c/w ischemia, ST depression - Labs Labs: Microbiology 06/01/22 14:37 Blood Culture (PCR) - Final Blood - Right Hand 06/01/22 14:37 Blood Culture - Preliminary Blood - Right Hand 06/01/22 14:38 Blood Culture - Preliminary Blood - Left Hand Laboratory Tests 06/01/22 06/01/22 06/01/22 14:36 14:37 14:37 WBC 5.3 RBC 4.62 L Hgb 14.1 Hct 40.7 L MCV 88.1 MCH 30.5 MCHC 34.6 RDW 12.2 Plt Count 181 MPV 9.3 Neut # (Auto) 5.0 Lymph # (Auto) 0.2 L [place] # (Auto) 0.1 Eos # (Auto) 0.0 Baso # (Auto) 0.0 Absolute Nucleated RBC 0.00 Nucleated RBC % 0.0 Sodium 133 L Potassium 4.0 Chloride 94 L Carbon Dioxide 27 Anion Gap 12.0 BUN 16 Creatinine 0.9 Estimated GFR (MDRD) 81 L Glucose 229 H Lactic Acid Calcium 8.8 Total Bilirubin 3.6 H AST 120 H ALT 82 H Alkaline Phosphatase 183 H Total Protein 7.1 Albumin 3.7 Globulin 3.4 Albumin/Globulin Ratio 1.1 Lipase Urine Color Urine Clarity Urine pH Ur Specific [place] Urine Protein Urine Glucose (UA) Urine Ketones Urine Occult Blood Urine Nitrite Urine Bilirubin Urine Urobilinogen Ur Leukocyte Esterase Urine RBC Urine WBC Ur Squamous Epith Cells Urine Bacteria Urine Mucus Urine Culture Comments Nasal Adenovirus (PCR) NOT DETECTED Nasal B. parapertussis DNA (PCR) NOT DETECTED Nasal Coronavir 229E PCR NOT DETECTED Nasal Coronavir HKU1 PCR NOT DETECTED Nasal Coronavir NL63 PCR NOT DETECTED Nasal Coronavir OC43 PCR NOT DETECTED Nasal Enterovir/Rhinovir PCR NOT DETECTED Nasal Influenza B PCR NOT DETECTED Nasal Influenza A PCR NOT DETECTED Nasal Parainfluen 1 PCR NOT DETECTED Nasal Parainfluen 2 PCR NOT DETECTED Nasal Parainfluen 3 PCR NOT DETECTED Nasal Parainfluen 4 PCR NOT DETECTED Nasal RSV (PCR) NOT DETECTED Nasal B.pertussis DNA PCR NOT DETECTED Nasal C.pneumoniae (PCR) NOT DETECTED [place] Human Metapneumo PCR NOT DETECTED Nasal M.pneumoniae (PCR) NOT DETECTED Nasal SARS-CoV-2 (PCR) NOT DETECTED 06/01/22 06/01/22 06/01/22 14:37 16:07 17:50 WBC RBC Hgb Hct MCV MCH MCHC RDW Plt Count MPV Neut # (Auto) Lymph # (Auto) [place] # (Auto) Eos # (Auto) Baso # (Auto) Absolute Nucleated RBC Nucleated RBC % Sodium Potassium Chloride Carbon Dioxide Anion Gap BUN Creatinine Estimated GFR (MDRD) Glucose Lactic Acid 4.3 H* Calcium Total Bilirubin AST ALT Alkaline Phosphatase Total Protein Albumin Globulin Albumin/Globulin Ratio Lipase 19 L Urine Color DARK YELLOW Urine Clarity CLEAR Urine pH 6.0 Ur Specific [place] 1.020 Urine Protein NEGATIVE Urine Glucose (UA) 100 H Urine Ketones TRACE Urine Occult Blood NEGATIVE Urine Nitrite NEGATIVE Urine Bilirubin MODERATE H Urine Urobilinogen 4 H Ur Leukocyte Esterase NEGATIVE Urine RBC 0-5 Urine WBC 0-3 Ur Squamous Epith Cells RARE Squamous Urine Bacteria None Seen Urine Mucus Few Strands Urine Culture Comments NOT INDICATED Nasal Adenovirus (PCR) Nasal B. parapertussis DNA (PCR) Nasal Coronavir 229E PCR Nasal Coronavir HKU1 PCR Nasal Coronavir NL63 PCR Nasal Coronavir OC43 PCR Nasal Enterovir/Rhinovir PCR Nasal Influenza B PCR Nasal Influenza A PCR Nasal Parainfluen 1 PCR Nasal Parainfluen 2 PCR Nasal Parainfluen 3 PCR Nasal Parainfluen 4 PCR Nasal RSV (PCR) Nasal B.pertussis DNA PCR Nasal C.pneumoniae (PCR) [place] Human Metapneumo PCR Nasal M.pneumoniae (PCR) Nasal SARS-CoV-2 (PCR) 06/01/22 06/01/22 06/01/22 17:50 20:55 21:28 WBC RBC Hgb Hct MCV MCH MCHC RDW Plt Count MPV Neut # (Auto) Lymph # (Auto) [place] # (Auto) Eos # (Auto) Baso # (Auto) Absolute Nucleated RBC Nucleated RBC % Sodium 134 L Potassium 3.4 L Chloride 97 L Carbon Dioxide 24 Anion Gap 13.0 BUN 20 Creatinine 1.1 Estimated GFR (MDRD) 64 L Glucose 163 H Lactic Acid 2.5 H 2.9 H Calcium 8.4 L Total Bilirubin 4.3 H AST 116 H ALT 92 H Alkaline Phosphatase 155 H Total Protein 6.5 L Albumin 3.5 Globulin 3.0 Albumin/Globulin Ratio 1.2 Lipase Urine Color Urine Clarity Urine pH Ur Specific [place] Urine Protein Urine Glucose (UA) Urine Ketones Urine Occult Blood Urine Nitrite Urine Bilirubin Urine Urobilinogen Ur Leukocyte Esterase Urine RBC Urine WBC Ur Squamous Epith Cells Urine Bacteria Urine Mucus Urine Culture Comments Nasal Adenovirus (PCR) Nasal B. parapertussis DNA (PCR) Nasal Coronavir 229E PCR Nasal Coronavir HKU1 PCR Nasal Coronavir NL63 PCR Nasal Coronavir OC43 PCR Nasal Enterovir/Rhinovir PCR Nasal Influenza B PCR Nasal Influenza A PCR Nasal Parainfluen 1 PCR Nasal Parainfluen 2 PCR Nasal Parainfluen 3 PCR Nasal Parainfluen 4 PCR Nasal RSV (PCR) Nasal B.pertussis DNA PCR Nasal C.pneumoniae (PCR) [place] Human Metapneumo PCR Nasal M.pneumoniae (PCR) Nasal SARS-CoV-2 (PCR) 06/02/22 06/02/22 06/02/22 00:20 03:34 05:34 WBC 16.3 H RBC 4.14 L Hgb 12.4 L Hct 36.8 L MCV 88.9 MCH 30.0 MCHC 33.7 RDW 12.8 Plt Count 158 MPV 9.5 Neut # (Auto) 15.3 H Lymph # (Auto) 0.2 L [place] # (Auto) 0.8 Eos # (Auto) 0.0 Baso # (Auto) 0.0 Absolute Nucleated RBC 0.00 Nucleated RBC % 0.0 Sodium Potassium Chloride Carbon Dioxide Anion Gap BUN Creatinine Estimated GFR (MDRD) Glucose Lactic Acid 3.5 H* 2.1 Calcium Total Bilirubin AST ALT Alkaline Phosphatase Total Protein Albumin Globulin Albumin/Globulin Ratio Lipase Urine Color Urine Clarity Urine pH Ur Specific [place] Urine Protein Urine Glucose (UA) Urine Ketones Urine Occult Blood Urine Nitrite Urine Bilirubin Urine Urobilinogen Ur Leukocyte Esterase Urine RBC Urine WBC Ur Squamous Epith Cells Urine Bacteria Urine Mucus Urine Culture Comments Nasal Adenovirus (PCR) Nasal B. parapertussis DNA (PCR) Nasal Coronavir 229E PCR Nasal Coronavir HKU1 PCR Nasal Coronavir NL63 PCR Nasal Coronavir OC43 PCR Nasal Enterovir/Rhinovir PCR Nasal Influenza B PCR Nasal Influenza A PCR Nasal Parainfluen 1 PCR Nasal Parainfluen 2 PCR Nasal Parainfluen 3 PCR Nasal Parainfluen 4 PCR Nasal RSV (PCR) Nasal B.pertussis DNA PCR Nasal C.pneumoniae (PCR) [place] Human Metapneumo PCR Nasal M.pneumoniae (PCR) Nasal SARS-CoV-2 (PCR) 06/02/22 06/02/22 05:34 06:41 WBC RBC Hgb Hct MCV MCH MCHC RDW Plt Count MPV Neut # (Auto) Lymph # (Auto) [place] # (Auto) Eos # (Auto) Baso # (Auto) Absolute Nucleated RBC Nucleated RBC % Sodium Potassium Chloride Carbon Dioxide Anion Gap BUN Creatinine Estimated GFR (MDRD) Glucose Lactic Acid 1.6 Calcium Total Bilirubin AST ALT Alkaline Phosphatase Total Protein Albumin Globulin Albumin/Globulin Ratio Lipase 18 L Urine Color Urine Clarity Urine pH Ur Specific [place] Urine Protein Urine Glucose (UA) Urine Ketones Urine Occult Blood Urine Nitrite Urine Bilirubin Urine Urobilinogen Ur Leukocyte Esterase Urine RBC Urine WBC Ur Squamous Epith Cells Urine Bacteria Urine Mucus Urine Culture Comments Nasal Adenovirus (PCR) Nasal B. parapertussis DNA (PCR) Nasal Coronavir 229E PCR Nasal Coronavir HKU1 PCR Nasal Coronavir NL63 PCR Nasal Coronavir OC43 PCR Nasal Enterovir/Rhinovir PCR Nasal Influenza B PCR Nasal Influenza A PCR Nasal Parainfluen 1 PCR Nasal Parainfluen 2 PCR Nasal Parainfluen 3 PCR Nasal Parainfluen 4 PCR Nasal RSV (PCR) Nasal B.pertussis DNA PCR Nasal C.pneumoniae (PCR) [place] Human Metapneumo PCR Nasal M.pneumoniae (PCR) Nasal SARS-CoV-2 (PCR) - Rads (name of study) Single view chest x-ray demonstrates low lung volumes, nonspecific left basilar opacity. Radiology: EMP read contemporaneously ruq sono Radiology: EMP read contemporaneously (Right upper quadrant ultrasound demonstrates surgically absent gallbladder, extrahepatic bile duct at 12 mm unchanged from prior, echogenic liver) CT A/P Radiology: EMP read contemporaneously (1. Extrahepatic biliary ductal dilation as seen on prior imaging, duct measures 11 mm at the nieves hepatis. No intrahepatic ductal dilation. Equivocal filling defects at the inferior duct versus artifact. Correlation with the patient's symptoms and laboratory markers for biliary obstruction may be h) PD MEDICAL DECISION MAKING - ED course ED course: 82-year-old gentleman presents with shortness of breath, chills, and epigastric pain starting today. He has a more chronic cough. Abdominal exam is benign, chest x-ray is relatively unremarkable, may be a left basilar opacity. Labs show a basically normal CBC with elevated lactate and elevated liver enzymes. Ultrasound and CT are concerning for biliary obstruction especially in light of his liver enzymes. He is status post remote cholecystectomy. MRCP is ordered. Departure - Departure Disposition: 02 Transfer Acute Care Hosp Clinical Impression: Choledocholithiasis, Ascending cholangitis Condition: Serious
[2022-06-01] MEDS ORDERED: ACETAMINOPHEN 500 MG TABLET PO STA (14:17)
[2022-06-01 14:47] LABS: BASOPHILS % (AUTO) 0.2 %; EOSINOPHILS % (AUTO) 0.6 %; HCT - HEMATOCRIT 40.7 % (42.0-52.0); HGB - HEMOGLOBIN 14.1 g/dL (14.0-18.0); LYMPHOCYTES # (AUTO) 0.2 10^3/uL (1.5-3.5); MEAN CORPUSCULAR HEMOGLOBIN 30.5 pg (27.0-31.0); MEAN CORPUSCULAR HGB CONC 34.6 g/dL (32.0-36.0); MEAN CORPUSCULAR VOLUME 88.1 fL (80.0-94.0); MEAN PLATELET VOLUME 9.3 fL (7.4-11.4); MONOCYTES # (AUTO) 0.1 10^3/uL (0.0-1.0); PLT - PLATELET COUNT 181 10^3/uL (130-450); RED BLOOD COUNT 4.62 10^6/uL (4.70-6.10); RED CELL DISTRIBUTION WIDTH 12.2 % (12.0-15.0); WHITE BLOOD COUNT 5.3 x10^3/uL (4.8-10.8)
[2022-06-01] MEDS ORDERED: ONDANSETRON 4 MG/2 ML VIAL IVP STA (14:50)
[2022-06-01 14:59] LABS: ALBUMIN 3.7 g/dL (3.2-5.5); ALBUMIN/GLOBULIN RATIO 1.1 (1.0-2.2); BILIRUBIN,TOTAL 3.6 mg/dL (0.2-1.0); CALCIUM 8.8 mg/dL (8.5-10.3); CREATININE 0.9 mg/dL (0.6-1.2); TOTAL PROTEIN 7.1 g/dL (6.7-8.2)
[2022-06-01 15:02] LABS: LACTIC ACID, VENOUS 4.3 mmol/L (0.5-2.2)
--- NOTE | 2022-06-01 15:20 | XRAY Report ---
PROCEDURE: Chest 1 View X-Ray INDICATIONS: cough TECHNIQUE: One view of the chest was acquired. COMPARISON: Chest radiograph 03/22/2021 FINDINGS: Surgical changes and devices: None. Lungs and pleura: Lung volumes are low. Mild patchy opacity left lung base. No large pleural effusio n. No pneumothorax. Mediastinum: Cardiac silhouette is at the upper limits of normal in size. Mediastinal and hilar cont ours are similar to before. Bones and chest wall: No suspicious bony lesions. Overlying soft tissues appear unremarkable. IMPRESSION: Lung volumes are low. Mild nonspecific left basilar opacity is present that could represent atelectas is but aspiration or pneumonia could appear similarly. Reviewed by: Mynor Davis MD on 06/01/2022 3:19 PM PDT Approved by: Mynor Davis MD on 06/01/2022 3:19 PM PDT Station ID: [id number]
[2022-06-01 15:37] LABS: B. PARAPERTUSSIS- RESP PCR PAN NOT DETECTED; B. PERTUSSIS- RESP PCR PANEL NOT DETECTED; C. PNEUMONIAE- RESP PCR PANEL NOT DETECTED; CORONAVIRUS 229E-RESP PCR NOT DETECTED; CORONAVIRUS HKU1-RESP PCR NOT DETECTED; CORONAVIRUS NL63-RESP PCR NOT DETECTED; CORONAVIRUS OC43-RESP PCR NOT DETECTED; HUMAN METAPNEUMOVIRUS NOT DETECTED; INFLUENZA A- RESP PCR PANEL NOT DETECTED; INFLUENZA B - RESP PCR PANEL NOT DETECTED; M. PNEUMONIAE- RESP PCR PANEL NOT DETECTED; PARAINFLUENZA VIRUS 1 NOT DETECTED; PARAINFLUENZA VIRUS 2 NOT DETECTED; PARAINFLUENZA VIRUS 3 NOT DETECTED; PARAINFLUENZA VIRUS 4 NOT DETECTED; RHINOVIRUS/ENTEROVIRUS NOT DETECTED; RSV- RESP PCR PANEL NOT DETECTED; SARS-CoV-2 -RESP PCR PANEL NOT DETECTED
[2022-06-01] MEDS ORDERED: iohexoL-300 100 ML VIAL ONE (15:46)
[2022-06-01 16:11] LABS: GLUCOSE, URINE (UA) 100 mg/dL (NEGATIVE); KETONES,URINE (UA) TRACE mg/dL (NEGATIVE); LEUKOCYTE ESTERASE, URINE NEGATIVE (NEGATIVE); NITRITE,URINE NEGATIVE (NEGATIVE); OCCULT BLOOD,URINE NEGATIVE (NEGATIVE); PROTEIN,URINE NEGATIVE (NEGATIVE); UROBILINOGEN,URINE 4 E.U./dL (NORMAL)
[2022-06-01] MEDS ORDERED: cefTRIAXone 2 GM in SODIUM CHLORIDE 0.9% MINIBAG 100 ML IV STA (16:15)
[2022-06-01 16:19] LABS: BILIRUBIN,URINE MODERATE (NEGATIVE); CLARITY,URINE CLEAR (CLEAR); ICTOTEST,URINE POSITIVE
--- NOTE | 2022-06-01 16:26 | Ultrasound Report ---
PROCEDURE: Abdomen Limited INDICATIONS: abd pain, elev liver enz TECHNIQUE: Real-time focused scanning was performed of the abdomen, with image documentation. COMPARISON: MRCP 06/05/2018, ultrasound 06/04/2018 FINDINGS: Technically challenging examination, patient uncooperative. Liver length of 17.8 cm. The liver is echogenic. main portal vein is patent with antegrade flow. Left lobe is not well-visualized. Prior cholecystectomy. Extra hepatic bile duct measures 12 mm. No intrahepatic ductal dilation demonstrated. Pancreas not visualized due to bowel gas. No right renal hydronephrosis. Small right renal cyst witho ut suspicious features identified. IMPRESSION: 1. The liver is echogenic, a nonspecific finding commonly seen in the setting of steatosis. 2. Prior cholecystectomy. 3. The extrahepatic bile duct is dilated measuring up to 12 mm. This is similar to minimally increase d since 2018, and may be due to postcholecystectomy state and patient age. However correlation with t he patient's symptoms and laboratory markers for biliary obstruction may be helpful. No intrahepatic biliary ductal dilation demonstrated. Reviewed by: Mynor Davis MD on 06/01/2022 4:25 PM PDT Approved by: Mynor Davis MD on 06/01/2022 4:25 PM PDT Station ID: [id number]
[2022-06-01 16:31] LABS: BACTERIA,URINE None Seen /HPF (None Seen); MUCUS,URINE Few Strands; RBC,URINE 0-5 /HPF (0-5); SQUAMOUS EPITHELIAL CELL,UR RARE Squamous (<= Few); WBC,URINE 0-3 /HPF (0-3)
--- NOTE | 2022-06-01 17:09 | CT Report ---
PROCEDURE: Abdomen/Pelvis W INDICATIONS: IV only, abd pain, elev liver enz CONTRAST: IV CONTRAST: Isovue 300 ml: 100 PO CONTRAST: *NO PO CONTRAST TECHNIQUE: After the administration of intravenous contrast, 5 mm thick sections acquired from the diaphragms to the symphysis. 5 mm thick coronal and sagittal reformats were acquired. For radiation dose reducti on, the following was used: automated exposure control, adjustment of mA and/or kV according to aristides ent size. COMPARISON: Right upper quadrant ultrasound same day, MRCP 06/05/2018, CT abdomen pelvis 06/03/2018. FINDINGS: Image quality: Adequate. Images are denoted as (series #/image #). Visualized lung bases: No pleural effusion. Liver and biliary tree: No suspect focal hepatic lesion. Extrahepatic biliary ductal dilation as seen on prior imaging, duct measures 11 mm at the nieves hepatis. No intrahepatic ductal dilation. Equivoc al filling defects at the inferior duct (02/14) versus artifact. Gallbladder: Surgically absent Spleen: Unremarkable. Pancreas: Unremarkable. Adrenal glands: Unremarkable. Kidneys and ureters: No hydronephrosis. Punctate nonobstructing renal stones and/or renal hilar vascu lar calcifications. Gastrointestinal tract: No bowel obstruction. Fluid present in the lower esophagus. Peritoneal cavity: No free air or free fluid. Bladder: Possible punctate bladder stone Pelvic organs: Prostatomegaly. Asymmetry of the seminal vesicles, right larger than left, more conspi cuous than on the prior exam Vasculature: No abdominal aortic aneurysm. Musculoskeletal: Degenerative change of the spine. IMPRESSION: 1. Extrahepatic biliary ductal dilation as seen on prior imaging, duct measures 11 mm at the nieves he patis. No intrahepatic ductal dilation. Equivocal filling defects at the inferior duct versus artifac t. Correlation with the patient's symptoms and laboratory markers for biliary obstruction may be help ful. 2.Punctate nonobstructing renal stones and/or renal hilar vascular calcifications.Possible punctate b ladder stone. 3. Asymmetry of the seminal vesicles, right larger than left, more conspicuous than on the prior exam . The patient of this age, findings could indicate obstruction of the right seminal vesicle. Correlat ion with digital rectal examination and PSA may be helpful, could obtain prostate MR if clinically in dicated. 4. Fluid present in the lower esophagus could indicate gastroesophageal reflux. Reviewed by: Mynor Davis MD on 06/01/2022 5:08 PM PDT Approved by: Mynor Davis MD on 06/01/2022 5:08 PM PDT Station ID: [id number]
[2022-06-01] MEDS ORDERED: SODIUM CHLORIDE 0.9% 1,000 ML IV STA ×2 (17:16→21:23)
[2022-06-01 18:08] LABS: LACTIC ACID, VENOUS 2.5 mmol/L (0.5-2.2)
[2022-06-01] MEDS ORDERED: LORazepam 2 MG/ML VIAL IVP STA (19:26)
[2022-06-01 21:18] LABS: LACTIC ACID, VENOUS 2.9 mmol/L (0.5-2.2)
[2022-06-01 21:47] LABS: ALBUMIN 3.5 g/dL (3.2-5.5); ALBUMIN/GLOBULIN RATIO 1.2 (1.0-2.2); BILIRUBIN,TOTAL 4.3 mg/dL (0.2-1.0); CALCIUM 8.4 mg/dL (8.5-10.3); CREATININE 1.1 mg/dL (0.6-1.2); POTASSIUM 3.4 mmol/L (3.5-5.0); TOTAL PROTEIN 6.5 g/dL (6.7-8.2)
[2022-06-01] MEDS ORDERED: D5.45NS W/20 MEQ KCL 1,000 ML IV STA (22:11)
[2022-06-01] MEDS ORDERED: iohexoL-300 100 ML VIAL IVP ONE (22:11)
[2022-06-01] MEDS: CIPROFLOXACIN 400 MG/200 ML 400 MG/200 ML BAG IV SCH (22:26)
[2022-06-01] MEDS: metroNIDAZOLE 500 MG/100 ML 500 MG/100 ML BAG IV SCH (23:21)
--- NOTE | 2022-06-02 00:16 | MRI Report ---
PROCEDURE: MRCP W/O INDICATIONS: dilated CBD with abnl labs TECHNIQUE: Coronal ultra fast SE through the abdomen, axial 2-D spoiled GE in- and ual-sk-umspl, and breath-hold T2 FSE with fat saturation through the biliary system and pancreas. Oblique coronal and axial thin- slice ultra fast SE, radial thick-slab ultra fast SE centered on the extrahepatic bile ducts. COMPARISON: CT abdomen pelvis 06/01/2022, ultrasound abdomen 05/21/2022. FINDINGS: Image quality: There is extensive motion artifact limiting evaluation. Pancreas and biliary system: The gallbladder is surgically absent. There is intra and extra hepatic b iliary ductal dilatation, with the common bile duct measuring up to 1.1 cm. Multiple clustered fillin g defects are demonstrated within the distal common bile duct with the largest measuring up to 1.3 cm consistent with common duct stones. No pancreatic duct dilatation. No peripancreatic fat stranding o r fluid collections. Other solid organs: Noncontrast evaluation of the liver demonstrates no discrete hepatic mass. No adr enal nodules. Kidneys demonstrate no hydronephrosis. The spleen is normal in size. Nodes and vessels: No retroperitoneal or mesenteric adenopathy by size criteria. Aorta and inferior vena cava are normal in size. Bowel and peritoneum: Visualized bowel loops are normal in caliber. No free fluid. Lung bases: No basal pleural effusions. Heart size is normal. Bones and soft tissues: No ventral hernias. Bone marrow is of normal overall signal. IMPRESSION: 1. Multiple filling defects in the distal common bile duct consistent with choledocholithiasis. 2. Mild intra and extrahepatic biliary ductal dilatation likely secondary to obstruction from common duct stones. 3. No pancreatic duct dilatation or MRI evidence of acute pancreatitis. Reviewed by: Andreas Antoine MD on 06/02/2022 12:15 AM PDT Approved by: Andreas Antoine MD on 06/02/2022 12:15 AM PDT Station ID: [id number]
[2022-06-02 01:01] LABS: LACTIC ACID, VENOUS 3.5 mmol/L (0.5-2.2)
[2022-06-02 03:51] LABS: LACTIC ACID, VENOUS 2.1 mmol/L (0.5-2.2)
--- NOTE | 2022-06-02 04:10 | ED Physician Documentation ---
ED Addendum - Addendum Addendum: 06/02/22 04:07 received sign out from Dr. Chilel at end of his shift. MRCP findings are s/o choledocholithiasis. Patient prefers [facility] for transfer but no beds available there. Several other hospitals were contacted and no beds available at appropriate facilities. Will continue to work on obtaining bed at appropriate facility. Blood cultures are positive for e. coli (two out of two blood cultures). Despite this, his blood pressures have been stable during my shift to this point (as of this note) 06/02/22 08:02 I discussed the case with [facility] and they will try to find bed at appropriate facility as well Care of patient turned over to Dr. Burns at end of my shift
[2022-06-02] MEDS ORDERED: KETOROLAC 15 MG/ML VIAL IVP STA (05:06)
[2022-06-02] MEDS ORDERED: MORPHINE 2 MG/ML CARPUJECT IVP STA ×2 (05:06→09:07)
[2022-06-02 05:40] LABS: BASOPHILS % (AUTO) 0.2 %; HCT - HEMATOCRIT 36.8 % (42.0-52.0); HGB - HEMOGLOBIN 12.4 g/dL (14.0-18.0); LYMPHOCYTES # (AUTO) 0.2 10^3/uL (1.5-3.5); LYMPHOCYTES % (AUTO) 1.4 %; MEAN CORPUSCULAR HGB CONC 33.7 g/dL (32.0-36.0); MEAN CORPUSCULAR VOLUME 88.9 fL (80.0-94.0); MEAN PLATELET VOLUME 9.5 fL (7.4-11.4); MONOCYTES # (AUTO) 0.8 10^3/uL (0.0-1.0); MONOCYTES % (AUTO) 4.7 %; NEUTROPHILS # (AUTO) 15.3 10^3/uL (1.5-6.6); NEUTROPHILS % (AUTO) 93.5 %; PLT - PLATELET COUNT 158 10^3/uL (130-450); RED BLOOD COUNT 4.14 10^6/uL (4.70-6.10); RED CELL DISTRIBUTION WIDTH 12.8 % (12.0-15.0); WHITE BLOOD COUNT 16.3 x10^3/uL (4.8-10.8)
[2022-06-02] MEDS: metroNIDAZOLE 500 MG/100 ML 500 MG/100 ML BAG IV SCH ×3 (06:03→21:22)
[2022-06-02] MEDS ORDERED: D5.45NS W/20 MEQ KCL 1,000 ML IV STA (06:43)
[2022-06-02] MEDS ORDERED: DEXAMETHASONE 10 MG/ML VIAL IVP STA (09:07)
--- NOTE | 2022-06-02 09:11 | ED Physician Documentation ---
ED Addendum - Addendum Addendum: 06/02/22 09:08 82-year-old Mukesh Valentine has come to the emergency department and been diagnosed with common bile duct stone with ascending infection. This morning the patient is feeling well with the exception of his chronic back pain and is requesting pain medication for that. He states that he typically takes 5 oxycodone per day. He has been treated previously for common bile duct stone with ERCP. Today we are giving him dexamethasone in addition as we are waiting for a bed for ERCP and we are attempting to help this patient pass his stones spontaneously. He is receiving maintenance fluids with half normal saline with K+. His blood cultures are positive for E. coli and he is on Cipro and metronidazole. He has been given a dose of Rocephin yesterday as well. This morning the patient does not appear ill. 06/02/22 09:12
[2022-06-02] MEDS: CIPROFLOXACIN 400 MG/200 ML 400 MG/200 ML BAG IV SCH ×2 (09:39→20:15)
[2022-06-02] MEDS ORDERED: oxyCODONE 5 MG TABLET PO PRN (12:36)
[2022-06-02] MEDS ORDERED: oxyCODONE 5 MG TABLET PO STA (13:17)
[2022-06-02] MEDS ORDERED: LORazepam 1 MG TABLET PO STA (20:24)
[2022-06-02] MEDS: oxyCODONE 5 MG TABLET PO PRN (20:31)
[2022-06-03] MEDS: metroNIDAZOLE 500 MG/100 ML 500 MG/100 ML BAG IV SCH ×3 (05:42→22:46)
[2022-06-03 06:04] LABS: BASOPHILS % (AUTO) 0.1 %; HCT - HEMATOCRIT 36.5 % (42.0-52.0); HGB - HEMOGLOBIN 12.3 g/dL (14.0-18.0); LYMPHOCYTES # (AUTO) 0.4 10^3/uL (1.5-3.5); MEAN CORPUSCULAR HGB CONC 33.7 g/dL (32.0-36.0); MEAN PLATELET VOLUME 9.7 fL (7.4-11.4); MONOCYTES # (AUTO) 0.7 10^3/uL (0.0-1.0); MONOCYTES % (AUTO) 5.1 %; NEUTROPHILS # (AUTO) 11.7 10^3/uL (1.5-6.6); PLT - PLATELET COUNT 155 10^3/uL (130-450); WHITE BLOOD COUNT 12.8 x10^3/uL (4.8-10.8)
[2022-06-03 06:16] LABS: ALBUMIN 3.3 g/dL (3.2-5.5); ALBUMIN/GLOBULIN RATIO 1.1 (1.0-2.2); BILIRUBIN,TOTAL 4.8 mg/dL (0.2-1.0); CALCIUM 8.3 mg/dL (8.5-10.3); CREATININE 0.8 mg/dL (0.6-1.2); POTASSIUM 3.8 mmol/L (3.5-5.0); TOTAL PROTEIN 6.4 g/dL (6.7-8.2)
[2022-06-03] MEDS: CIPROFLOXACIN 400 MG/200 ML 400 MG/200 ML BAG IV SCH ×2 (08:59→21:34)
[2022-06-03] MEDS ORDERED: NYSTATIN POWDER 15 GM TOP PRN (13:13)
[2022-06-03] MEDS: METOCLOPRAMIDE 10 MG/2 ML VIAL IVP PRN (15:11)
[2022-06-03] MEDS: oxyCODONE 5 MG TABLET PO PRN (16:18)
[2022-06-03] MEDS ORDERED: LORazepam 1 MG TABLET PO STA (22:57)
--- NOTE | 2022-06-03 23:00 | ED Physician Documentation ---
ED Addendum - Addendum Addendum: 06/03/22 22:58 S: No increase or decrease in pain, mostly in back. Not clear if that is his chronic LBP or r/t his choledocholithiasis. O: NTTP abd exam. Labs about the same, slight decrease WBC. E Coli sensitivities pending. A: Choledocholithiasis with obstruction, ascending cholangitis and e coli bacteremia. P: No facilities capable of ERCP available for xfer. On multiple waitlists. Continue IV abx. Serial labs.
[2022-06-04 04:54] LABS: BASOPHILS % (AUTO) 0.2 %; EOSINOPHILS # (AUTO) 0.1 10^3/uL (0.0-0.7); HCT - HEMATOCRIT 36.3 % (42.0-52.0); HGB - HEMOGLOBIN 12.2 g/dL (14.0-18.0); LYMPHOCYTES # (AUTO) 0.7 10^3/uL (1.5-3.5); MEAN CORPUSCULAR HEMOGLOBIN 29.7 pg (27.0-31.0); MEAN CORPUSCULAR HGB CONC 33.6 g/dL (32.0-36.0); MEAN CORPUSCULAR VOLUME 88.3 fL (80.0-94.0); MEAN PLATELET VOLUME 9.5 fL (7.4-11.4); MONOCYTES # (AUTO) 0.5 10^3/uL (0.0-1.0); MONOCYTES % (AUTO) 5.5 %; NEUTROPHILS # (AUTO) 6.9 10^3/uL (1.5-6.6); NEUTROPHILS % (AUTO) 84.8 %; PLT - PLATELET COUNT 145 10^3/uL (130-450); RED BLOOD COUNT 4.11 10^6/uL (4.70-6.10); RED CELL DISTRIBUTION WIDTH 12.6 % (12.0-15.0); WHITE BLOOD COUNT 8.1 x10^3/uL (4.8-10.8)
[2022-06-04 05:07] LABS: ALBUMIN 3.1 g/dL (3.2-5.5); BILIRUBIN,TOTAL 2.4 mg/dL (0.2-1.0); CALCIUM 8.2 mg/dL (8.5-10.3); CREATININE 0.7 mg/dL (0.6-1.2); POTASSIUM 3.1 mmol/L (3.5-5.0); TOTAL PROTEIN 6.1 g/dL (6.7-8.2)
[2022-06-04] MEDS: metroNIDAZOLE 500 MG/100 ML 500 MG/100 ML BAG IV SCH ×3 (06:25→21:29)
[2022-06-04] MEDS: oxyCODONE 5 MG TABLET PO PRN ×3 (06:35→20:06)
[2022-06-04] MEDS ORDERED: POTASSIUM CHLORIDE 20 MEQ TABLET PO STA (08:29)
[2022-06-04] MEDS: CIPROFLOXACIN 400 MG/200 ML 400 MG/200 ML BAG IV SCH ×2 (09:12→20:06)
[2022-06-04] MEDS ORDERED: LACTATED RINGERS 1,000 ML IV STA (09:25)
--- NOTE | 2022-06-04 09:29 | ED Physician Documentation ---
ED Addendum - Addendum Addendum: 06/04/22 09:26 Subjective: The patient is here for episode of upper abdominal pain and elevated LFTs due to obstructed common bile duct. He is status postcholecystectomy and states he has had ERCP dilatation of the bile duct twice before by GI in [place]. He would like to go to that facility if possible. At this point were on waiting list for any facility with capability. The patient remains on antibiotics Zosyn. He was given oral potassium supplement this morning for a lower potassium of 3.1 today. Had been adequate yesterday. We can also give Ringer's infusion through the day. Orders for labs are set up for tomorrow and the next day in anticipation of his transfer still taken a while. The patient to denies any pain at this time. He was eating a clear liquid diet of some Jell-O and juice at the time I saw him. No apparent modification of treatment is needed at this time. Objective: The patient awake alert and conversant. He is in no apparent distress. Abdomen is soft and nontender. Assessment: Common bile duct obstruction with elevated LFTs Plan: The search is still line for their facility that has capability to treat the patient. Meanwhile he remained stable here with current treatment.
[2022-06-04] MEDS ORDERED: POTASSIUM CHLORIDE 20 MEQ TABLET PO SCH (11:00)
[2022-06-04] MEDS ORDERED: LORazepam 1 MG TABLET PO STA (23:24)
[2022-06-05 04:57] LABS: BASOPHILS % (AUTO) 0.2 %; EOSINOPHILS # (AUTO) 0.1 10^3/uL (0.0-0.7); EOSINOPHILS % (AUTO) 2.3 %; HGB - HEMOGLOBIN 13.3 g/dL (14.0-18.0); LYMPHOCYTES # (AUTO) 0.6 10^3/uL (1.5-3.5); LYMPHOCYTES % (AUTO) 10.4 %; MEAN CORPUSCULAR HEMOGLOBIN 29.8 pg (27.0-31.0); MEAN CORPUSCULAR HGB CONC 33.3 g/dL (32.0-36.0); MEAN CORPUSCULAR VOLUME 89.5 fL (80.0-94.0); MEAN PLATELET VOLUME 9.3 fL (7.4-11.4); MONOCYTES # (AUTO) 0.5 10^3/uL (0.0-1.0); MONOCYTES % (AUTO) 8.3 %; NEUTROPHILS # (AUTO) 4.4 10^3/uL (1.5-6.6); NEUTROPHILS % (AUTO) 77.7 %; PLT - PLATELET COUNT 143 10^3/uL (130-450); RED BLOOD COUNT 4.47 10^6/uL (4.70-6.10); RED CELL DISTRIBUTION WIDTH 12.6 % (12.0-15.0); WHITE BLOOD COUNT 5.7 x10^3/uL (4.8-10.8)
[2022-06-05 05:10] LABS: ALBUMIN 3.1 g/dL (3.2-5.5); ALBUMIN/GLOBULIN RATIO 1.1 (1.0-2.2); BILIRUBIN,TOTAL 2.3 mg/dL (0.2-1.0); CALCIUM 8.1 mg/dL (8.5-10.3); CREATININE 0.8 mg/dL (0.6-1.2); POTASSIUM 3.4 mmol/L (3.5-5.0)
[2022-06-05] MEDS: METOCLOPRAMIDE 10 MG/2 ML VIAL IVP PRN (06:19)
[2022-06-05] MEDS: metroNIDAZOLE 500 MG/100 ML 500 MG/100 ML BAG IV SCH (06:40)
[2022-06-05] MEDS: oxyCODONE 5 MG TABLET PO PRN (06:43)
--- NOTE | 2022-06-05 08:32 | ED Physician Documentation ---
ED Addendum - Addendum Addendum: 06/05/22 08:32 Subjective: No abdominal pain since day 1, he has back pain but that is chronic for him. Objective: Afebrile, vital signs unremarkable, appears comfortable, no abdominal tenderness. Assessment: Choledocholithiasis with E. coli bacteremia despite remote surgical cholecystectomy. He is improving, no pain, no fever, white count normalized. Bilirubin and liver enzymes trending down. Plan: I spoke with the on-call surgeon (Brandy), we agree medically he is probably approaching a point where he could be sent home and have an outpatient ERCP given improving biliary biomarkers and clinical picture. He is quite weak after 5 days in the emergency department so I will have physical therapy come see him. We will advance his diet. To low-fat. 06/05/22 11:33 He ate eggs and did well, no increase in abdominal pain. Really only complaining of his usual back pain. He very much wants to go home, I will email his primary care physician as he will need close follow-up. He was ambulatory here in the department this morning with a walker which is his baseline.
[2022-06-05 12:06] VITALS: BP 152/106
== END 2022-06-05 12:30 | disposition home or self-care (01) ==
LOC: EDUNIT# → ED 14:09
DX: K80.30 Calculus of bile duct with cholangitis, unspecified, without obstruction (principal); B96.20 Unspecified Escherichia coli [E. coli] as the cause of diseases classified elsewhere; M54.50 Low back pain, unspecified; G89.29 Other chronic pain; E11.9 Type 2 diabetes mellitus without complications; Z79.84 Long term (current) use of oral hypoglycemic drugs; Z20.822 Contact with and (suspected) exposure to COVID-19
CPT/HCPCS: 36415; 71045; 74177; 74181; 76705; 80053; 81001; 83605; 83690; 83735; 85025; 87040; 87150; 87181; 87633; 93005; 96361; 96365; 96366; 96367; 96368; 96375; 99283; 99285; A9270; J2060; J2765; J7120; J8499; Q9967; 87086

== ENCOUNTER 2022-12-08 18:08 | Emergency (ER) | payer MEDICARE, OTHER ==
--- NOTE | 2022-12-08 18:41 | ED Physician Documentation ---
History of Present Illness - Stated complaint Stated Complaint: SOA - Chief complaint Chief Complaint: Resp - History obtained from History obtained from: Patient - Additonal information Additional information: 82-year-old gentleman with history of atrial fibrillation, on metoprolol and a DOAC, he does not know which one. He also has type 2 diabetes and had a prolonged ED stay few months ago when he had choledocholithiasis and was boarding in the emergency department pending transfer which he subsequently was and he is had his gallbladder removed in the interim. For the last few days he has had intermittent heart racing. He says it was especially bad 2 days ago and admits that on that date he was short of breath and he may have skipped a dose of his metoprolol. He is not feeling it now. There is no chest pain with it. He is short of breath with it. He also has a productive cough of flores-green sputum. No fevers. No pedal edema. PD PAST MEDICAL HISTORY - Past Medical History Cardiovascular: Coronary artery disease, [place] Respiratory: None Neuro: Peripheral neuropathy Endocrine/Autoimmune: Type 2 diabetes GI: GERD, Diverticulitis : Benign prostate hypertrophy HEENT: None Psych: None Musculoskeletal: Osteoarthritis, Chronic back pain Derm: None - Past Surgical History Past Surgical History: Yes General: Cholecystectomy, Bowel surgery Cardiovascular: Coronary stent - Present Medications Home Medications: Ambulatory Orders Medication Instructions Recorded Confirmed Metoprolol Tartrate [Lopressor] 25 mg PO BID 11/23/13 01/05/22 Metformin HCl [Glucophage] 500 mg PO BIDWM 10/30/20 01/05/22 Clopidogrel [Plavix] 75 mg PO DAILY 03/20/21 01/05/22 Thiamine [Vitamin B-1] 100 mg PO DAILY 03/20/21 01/05/22 Aspirin EC [Ecotrin] 325 mg PO BID 03/22/21 01/05/22 Tamsulosin [Flomax] 0.4 mg PO DAILY 03/22/21 01/05/22 Doxycycline [Vibramycin] 100 mg PO BID #14 tablet 12/08/22 Losartan [Cozaar] 100 mg PO DAILY 12/08/22 12/08/22 Oxycodone HCl 10 mg ORAL DAILY 12/08/22 12/08/22 amLODIPine [Norvasc] 5 mg PO DAILY 12/08/22 12/08/22 - Allergies Allergies/Adverse Reactions: Allergies Allergy/AdvReac Type Severity Reaction Status Date / Time amoxicillin trihydrate * AdvReac Nausea Verified 12/08/22 18:17 [From Augmentin] potassium clavulanate * AdvReac Nausea Verified 12/08/22 18:17 [From Augmentin] - Social History Does the pt smoke?: Yes Smoking Status: Former smoker Does the pt drink ETOH?: Yes Does the pt have substance abuse?: No - Immunizations Immunizations are current?: No Immunizations: TDAP >10years/unknown - POLST Patient has POLST: No POLST Status: Full Code PD ED PE NORMAL - Vitals Vital signs reviewed: Yes - General General: Alert and oriented X 3, No acute distress - HEENT HEENT: PERRL, EOMI - Neck Neck: Supple, no meningeal sign, No bony TTP - Cardiac Cardiac: Other (Frequent extrasystoles, no murmur) - Respiratory Respiratory: No respiratory distress, Clear bilaterally - Abdomen Abdomen: Non tender - Extremities Extremities: No edema, No calf tenderness / cord - Neuro Neuro: Alert and oriented X 3, Normal speech Results - Vitals Vitals: Vital Signs - 24 hr 12/08/22 12/08/22 18:11 18:30 Temperature 36.2 C L Heart Rate 87 79 Respiratory 18 27 H Rate Blood Pressure 148/83 H 153/86 H O2 Saturation 100 98 Oxygen O2 Source Room air - EKG (time done) 1823 EKG releavant findings:: EKG personally interpreted by author of this note. Relevant findings are: Rate: Rate (enter#) (82) Rhythm: NSR (Although not specifically on the EKG he has having a couple of PVCs a minute on the monitor) Intervals: Other (LAFB) QRS: Low voltage Ischemia: Non specific changes. No: ST elevation c/w ischemia, ST depression - Labs Labs: Laboratory Tests 12/08/22 12/08/22 12/08/22 18:45 18:45 18:45 WBC 9.1 RBC 4.86 Hgb 14.2 Hct 43.7 MCV 89.9 MCH 29.2 MCHC 32.5 RDW 12.8 Plt Count 242 MPV 9.4 Neut # (Auto) 6.8 H Lymph # (Auto) 1.4 L Gaines # (Auto) 0.6 Eos # (Auto) 0.3 Baso # (Auto) 0.0 Absolute Nucleated RBC 0.00 Nucleated RBC % 0.0 Sodium 135 Potassium 3.9 Chloride 98 L Carbon Dioxide 27 Anion Gap 10.0 BUN 17 Creatinine 0.8 Estimated GFR (MDRD) 93 Glucose 193 H Calcium 8.5 Magnesium 1.8 Total Bilirubin 0.5 AST 34 ALT 32 Alkaline Phosphatase 125 H B-Natriuretic Peptide 48 Total Protein 7.1 Albumin 4.0 Globulin 3.1 Albumin/Globulin Ratio 1.3 - Rads (name of study) Single view chest x-ray is negative Relevant Findings:: Final report received, EMP independent interpretation of test PD Medical Decision Making - ED course ED course: 82-year-old gentleman with multiple comorbidities presents with shortness of breath. He had significant tachycardias 2 days ago but that may have been associated with some noncompliance with his metoprolol by his history. Here his heart rate is normal with occasional PVCs. Work-up demonstrates a normal CBC albeit maybe with a mild left shift. CMP reviewed showing modest hyperglycemia. BNP and chest x-ray negative without evidence of CHF or pneumonia. He has a productive cough and may well have bronchitis which given the left shift and his advanced age merit a trial of antibiotics. Departure - Departure Disposition: 01 Home, Self Care Clinical Impression: Bronchitis, Dyspnea Condition: Good Record reviewed to determine appropriate education?: Yes Instructions: ED Dyspnea Shortness of Breath, ED Bronchitis Asthmatic Prescriptions: Doxycycline [Vibramycin] 100 mg PO BID #14 tablet Comments: I sent your prescription electronically to the [facility] at the corner of [facility] [address] [facility] in [place]. Your work-up today showed no evidence of active arrhythmia other than premature ventricular contractions and no evidence of heart failure or fluid on your chest x-ray. The suspicion is that you had high heart rates a couple of days ago from missing her metoprolol. Make sure you are taking your medications as prescribed. Given your productive cough you may also have bronchitis as well which I am treating with antibiotics. Call your doctor to arrange a follow-up appointment, make the next available appointment. In the interim, return anytime if worse or if new symptoms develop.
--- NOTE | 2022-12-08 18:44 | XRAY Report ---
PROCEDURE: Chest 1 View X-Ray INDICATIONS: dyspnea TECHNIQUE: One view of the chest was acquired. COMPARISON: None. FINDINGS: Surgical changes and devices: None. Lungs and pleura: No pleural effusions or pneumothorax. Lungs are clear. Mediastinum: Mediastinal contours appear normal. Heart size is normal. Bones and chest wall: No suspicious bony lesions. Overlying soft tissues appear unremarkable. IMPRESSION: No acute cardiopulmonary process. Reviewed by: Saeed Lofton MD on 12/08/2022 6:43 PM PDT Approved by: Saeed Lofton MD on 12/08/2022 6:43 PM PDT Station ID: [id number]
[2022-12-08 18:52] LABS: BASOPHILS % (AUTO) 0.3 %; EOSINOPHILS # (AUTO) 0.3 10^3/uL (0.0-0.7); EOSINOPHILS % (AUTO) 2.7 %; HCT - HEMATOCRIT 43.7 % (42.0-52.0); HGB - HEMOGLOBIN 14.2 g/dL (14.0-18.0); LYMPHOCYTES # (AUTO) 1.4 10^3/uL (1.5-3.5); LYMPHOCYTES % (AUTO) 15.4 %; MEAN CORPUSCULAR HEMOGLOBIN 29.2 pg (27.0-31.0); MEAN CORPUSCULAR HGB CONC 32.5 g/dL (32.0-36.0); MEAN CORPUSCULAR VOLUME 89.9 fL (80.0-94.0); MEAN PLATELET VOLUME 9.4 fL (7.4-11.4); MONOCYTES # (AUTO) 0.6 10^3/uL (0.0-1.0); MONOCYTES % (AUTO) 6.2 %; NEUTROPHILS # (AUTO) 6.8 10^3/uL (1.5-6.6); PLT - PLATELET COUNT 242 10^3/uL (130-450); RED BLOOD COUNT 4.86 10^6/uL (4.70-6.10); RED CELL DISTRIBUTION WIDTH 12.8 % (12.0-15.0); WHITE BLOOD COUNT 9.1 x10^3/uL (4.8-10.8)
[2022-12-08 19:02] LABS: ALBUMIN/GLOBULIN RATIO 1.3 (1.0-2.2); BILIRUBIN,TOTAL 0.5 mg/dL (0.2-1.0); CALCIUM 8.5 mg/dL (8.5-10.3); CREATININE 0.8 mg/dL (0.6-1.2); MAGNESIUM 1.8 mg/dL (1.7-2.8); POTASSIUM 3.9 mmol/L (3.5-5.0); TOTAL PROTEIN 7.1 g/dL (6.7-8.2)
[2022-12-08] MEDS ORDERED: DOXYCYCLINE 100 MG TABLET PO STA (19:32)
[2022-12-08 20:03] VITALS: BP 135/66
== END 2022-12-08 20:02 | disposition home or self-care (01) ==
LOC: ED 18:08
DX: J40 Bronchitis, not specified as acute or chronic (principal); R06.00 Dyspnea, unspecified; T44.7X6A Underdosing of beta-adrenoreceptor antagonists, initial encounter; Z91.138 Patient's unintentional underdosing of medication regimen for other reason; Z87.891 Personal history of nicotine dependence
CPT/HCPCS: 36415; 71045; 80053; 83735; 83880; 85025; 93005; 99284; A9270

== ENCOUNTER 2023-01-12 16:45 | Emergency (ER) | payer MEDICARE, OTHER ==
[2023-01-12] MEDS ORDERED: ONDANSETRON 4 MG/2 ML VIAL IVP STA ×2 (17:05→19:36)
--- NOTE | 2023-01-12 17:06 | ED Physician Documentation ---
PD HPI ABD PAIN - Stated complaint Stated Complaint: ABD PX - Chief complaint Chief Complaint: Abd Pain - History obtained from History obtained from: Patient - History of Present Illness Timing - onset: How many hours ago (1) Timing - duration: Hours (1) Timing - details: Abrupt onset, Still present Quality: Sharp, Stabbing Location: LLQ - Additional information Additional information: 82-year-old male with a history of bowel resection, appendectomy and chol ecystectomy presents with sudden onset of left lower quadrant abdominal pain that started just prior to arrival. The patient states that he ate some Welsh food this afternoon and shortly thereafter had a sharp stabbing pain in the left lower quadrant. He states he thought he may have swallowed a piece of metal because it felt like a piece of metal was stabbing him in the left lower quadrant. He felt nauseous but Has not vomited. He did have 2 bowel movements at home thinking that that would cause improvement in his symptoms but it did not. These were nonbloody, no diarrhea. He has no urinary symptoms, no fever. He states he does have a history of diverticulitis resulting in bowel resection. Review of Systems Constitutional: reports: Reviewed and negative Cardiac: reports: Reviewed and negative Respiratory: reports: Reviewed and negative GI: reports: Abdominal Pain, Nausea. denies: Abdominal Swelling, Vomiting, Constipation, Diarrhea, Hematemesis, Bloody / black stool : reports: Reviewed and negative Skin: reports: Reviewed and negative Musculoskeletal: reports: Reviewed and negative Neurologic: reports: Reviewed and negative PD PAST MEDICAL HISTORY - Past Medical History Cardiovascular: Coronary artery disease, CT Respiratory: None Neuro: Peripheral neuropathy Endocrine/Autoimmune: Type 2 diabetes GI: GERD, Diverticulitis : Benign prostate hypertrophy HEENT: None Psych: None Musculoskeletal: Osteoarthritis, Chronic back pain Derm: None - Past Surgical History Past Surgical History: Yes General: Cholecystectomy, Bowel surgery Cardiovascular: Coronary stent - Present Medications Home Medications: Ambulatory Orders Medication Instructions Recorded Confirmed Metoprolol Tartrate [Lopressor] 25 mg PO BID 11/23/13 01/05/22 Metformin HCl [Glucophage] 500 mg PO BIDWM 10/30/20 01/05/22 Clopidogrel [Plavix] 75 mg PO DAILY 03/20/21 01/05/22 Thiamine [Vitamin B-1] 100 mg PO DAILY 03/20/21 01/05/22 Aspirin EC [Ecotrin] 325 mg PO BID 03/22/21 01/05/22 Tamsulosin [Flomax] 0.4 mg PO DAILY 03/22/21 01/05/22 Doxycycline [Vibramycin] 100 mg PO BID #14 tablet 12/08/22 Losartan [Cozaar] 100 mg PO DAILY 12/08/22 12/08/22 Oxycodone HCl 10 mg ORAL DAILY 12/08/22 12/08/22 amLODIPine [Norvasc] 5 mg PO DAILY 12/08/22 12/08/22 HYDROcod/ACETAM 5/325 [[place] 5/325] 1 - 2 tablet PO Q6H PRN #8 tablet 01/12/23 - Allergies Allergies/Adverse Reactions: Allergies Allergy/AdvReac Type Severity Reaction Status Date / Time amoxicillin trihydrate * AdvReac Nausea Verified 01/12/23 17:00 [From Augmentin] potassium clavulanate * AdvReac Nausea Verified 01/12/23 17:00 [From Augmentin] - Social History Does the pt smoke?: Yes Smoking Status: Former smoker Does the pt drink ETOH?: Yes Does the pt have substance abuse?: No - Immunizations Immunizations are current?: No Immunizations: TDAP >10years/unknown - POLST Patient has POLST: No POLST Status: Full Code PD ED PE NORMAL - Vitals Vital signs reviewed: Yes - General General: Alert and oriented X 3, No acute distress, Well developed/nourished - HEENT HEENT: Atraumatic, Pharynx benign - Cardiac Cardiac: RRR, No murmur - Respiratory Respiratory: No respiratory distress, Clear bilaterally - Abdomen Abdomen: Normal bowel sounds, Soft, Non distended, Other (Left lower quadrant tenderness to palpation) - Back Back: No CVA TTP, No spinal TTP - Derm Derm: Normal color, Warm and dry, No rash - Extremities Extremities: No deformity, No tenderness to palpate, Normal ROM s pain, No edema, No calf tenderness / cord - Neuro Neuro: Alert and oriented X 3 Eye Opening: Spontaneous Motor: Obeys Commands Verbal: Oriented GCS Score: 15 Results - Vitals Vitals: Vital Signs - 24 hr 01/12/23 01/12/23 16:58 19:00 Temperature 98.4 C H 36.4 C L Heart Rate 76 77 Respiratory 16 18 Rate Blood Pressure 150/78 H 168/80 H O2 Saturation 97 95 Oxygen O2 Source Room air - Labs Labs: Laboratory Tests 01/12/23 01/12/23 01/12/23 17:37 17:59 18:50 WBC 10.9 H RBC 4.41 L Hgb 13.3 L Hct 40.2 L MCV 91.2 MCH 30.2 MCHC 33.1 RDW 12.9 Plt Count 195 MPV 9.5 Neut # (Auto) 9.3 H Lymph # (Auto) 0.8 L Price # (Auto) 0.5 Eos # (Auto) 0.2 Baso # (Auto) 0.0 Absolute Nucleated RBC 0.00 Nucleated RBC % 0.0 Sodium 136 Potassium 3.7 Chloride 94 L Carbon Dioxide 27 Anion Gap 15.0 H BUN 13 Creatinine 0.6 Estimated GFR (MDRD) 130 Glucose 188 H Calcium 8.5 Total Bilirubin 0.7 AST 28 ALT 29 Alkaline Phosphatase 122 H Total Protein 6.9 Albumin 3.5 Globulin 3.4 Albumin/Globulin Ratio 1.0 Lipase 17 L Urine Color YELLOW Urine Clarity CLEAR Urine pH 7.5 Ur Specific [place] 1.020 Urine Protein NEGATIVE Urine Glucose (UA) NEGATIVE Urine Ketones TRACE Urine Occult Blood MODERATE H Urine Nitrite NEGATIVE Urine Bilirubin NEGATIVE Urine Urobilinogen 0.2 (NORMAL) Ur Leukocyte Esterase NEGATIVE Urine RBC 11-25 H Urine WBC 0-3 Ur Squamous Epith Cells RARE Squamous Urine Bacteria None Seen Ur Microscopic Review INDICATED Urine Culture Comments NOT INDICATED - Rads (name of study) No standard instances Relevant Findings:: Final report received PD Medical Decision Making - ED course Complexity details: reviewed results, re-evaluated patient, considered differential, d/w patient ED course: 82-year-old male presented with sudden onset left lower quadrant abdominal pain this afternoon after eating Welsh food. He had nausea but no other acute symptoms. On arrival here the patient is uncomfortable but nontoxic, stable vital signs. Differentials considered included diverticulitis, gastroenteritis, kidney stone, UTI, pyelonephritis. We obtained abdominal labs which are largely reassuring, he has normal renal function and electrolytes, his CBC Shows a white blood cell count of 10.9 hemoglobin 13.3 otherwise normal. Urinalysis shows blood but no signs of urinary tract infection. We obtained a CT abdomen pelvis to evaluate for possible diverticulitis versus other cause of his pain and this shows diverticulosis but no diverticulitis but he does have a 3 mm stone in the bladder and it is suspected it recently passed through the ureter, which may be the cause of his pain. Patient was given pain medication as well as nausea medication here in the ER. He had some improvement in his symptoms but was not back to 100%. I discussed the findings with the patient and recommended that he trial a single dose of anti-inflammatory here, and he can continue Tylenol or [place] if needed for pain At home, and I have also given him Zofran As well. I encouraged him to try to stay well-hydrated. I. Anticipate that he will completely pass a stone in the next several days And if the pain should improve now that it is passed through the ureter.. I discussed return precautions however if symptoms were to worsen including fever, increasing pain or other new concerns. Departure - Departure Disposition: 01 Home, Self Care Clinical Impression: Left ureteral stone Condition: Good Instructions: ED Stone Renal Passed Prescriptions: HYDROcod/ACETAM 5/325 [[place] 5/325] 1 - 2 tablet PO Q6H PRN #8 tablet PRN Reason: Pain Comments: Your work-up today revealed a left-sided ureteral stone that has passed into the bladder. I suspect this is a cause of your acute abdominal pain. There is no sign of urinary tract and no sign of diverticulitis or other colon problems today. Your labs are stable. We have given you pain medication and your symptoms should improve now that the stone has passed into the bladder. You may have an additional episode of pain if the stone passes into the urine. It is small enough that it likely will pass on its own. If it does not, you will need to see a urologist. Please follow-up with your primary doctor as needed if ongoing pain or return to the ER if you have new or worsening symptoms. I am prescribing a short course of narcotic pain medication for you. These are potentially dangerous and addictive medications that should be used carefully. These medications may constipate you. Take an [id number] stool softener (docusate) twice daily with plenty of water while taking these medications. If you go 24 hours without a bowel movement, take [id number] miralax, per package instructions. Do not drink or drive while taking these medications. If you received narcotic or sedating medications while in the emergency department, do not drive for 24 hours. Store this medication in a safe, secure place and out of reach of children. It is a violation of federal law to give or sell this medication to another person or to use in a manner other than prescribed. The ED will not refill narcotic prescriptions, including prescriptions lost or stolen. To dispose of unwanted medications: 1. [facility] at [address] in [place] has a medication drop box. They accept prescription medications (in pill form) Monday through Monday 9:00 a.m. to 5:00 p.m. 2. The [facility] accepts prescription medications (in pill form only) for disposal year round. Call for more information. 3. Contact the [facility] for the next COUNTS INCLUDE 234 BEDS AT THE [facility] sponsored prescription drug collection event. , [phone], or [phone]; Note that many narcotic pain relievers also contain Tylenol/acetaminophen. Please ensure that your total dose of acetaminophen from all sources does not exceed 3 g (3000 mg) per day. Discharge Date/Time: 01/12/23 19:55
[2023-01-12] MEDS ORDERED: MORPHINE 2 MG/ML CARPUJECT IVP STA (17:20)
[2023-01-12] MEDS ORDERED: HYDROmorphone 1 MG/ML CARPUJECT IVP STA (17:50)
[2023-01-12] MEDS ORDERED: iohexoL-300 100 ML VIAL ONE (17:52)
[2023-01-12 17:54] LABS: ALBUMIN 3.5 g/dL (3.2-5.5); BILIRUBIN,TOTAL 0.7 mg/dL (0.2-1.0); CALCIUM 8.5 mg/dL (8.5-10.3); CREATININE 0.6 mg/dL (0.6-1.2); POTASSIUM 3.7 mmol/L (3.5-5.0); TOTAL PROTEIN 6.9 g/dL (6.7-8.2)
[2023-01-12 18:10] LABS: BASOPHILS % (AUTO) 0.4 %; EOSINOPHILS # (AUTO) 0.2 10^3/uL (0.0-0.7); EOSINOPHILS % (AUTO) 1.7 %; HCT - HEMATOCRIT 40.2 % (42.0-52.0); HGB - HEMOGLOBIN 13.3 g/dL (14.0-18.0); LYMPHOCYTES # (AUTO) 0.8 10^3/uL (1.5-3.5); LYMPHOCYTES % (AUTO) 7.5 %; MEAN CORPUSCULAR HEMOGLOBIN 30.2 pg (27.0-31.0); MEAN CORPUSCULAR HGB CONC 33.1 g/dL (32.0-36.0); MEAN CORPUSCULAR VOLUME 91.2 fL (80.0-94.0); MEAN PLATELET VOLUME 9.5 fL (7.4-11.4); MONOCYTES # (AUTO) 0.5 10^3/uL (0.0-1.0); MONOCYTES % (AUTO) 4.7 %; NEUTROPHILS # (AUTO) 9.3 10^3/uL (1.5-6.6); NEUTROPHILS % (AUTO) 85.1 %; PLT - PLATELET COUNT 195 10^3/uL (130-450); RED BLOOD COUNT 4.41 10^6/uL (4.70-6.10); RED CELL DISTRIBUTION WIDTH 12.9 % (12.0-15.0); WHITE BLOOD COUNT 10.9 x10^3/uL (4.8-10.8)
[2023-01-12] MEDS ORDERED: iohexoL-300 100 ML VIAL IVP ONE (18:26)
[2023-01-12 18:59] LABS: BILIRUBIN,URINE NEGATIVE (NEGATIVE); GLUCOSE, URINE (UA) NEGATIVE (NEGATIVE); KETONES,URINE (UA) TRACE mg/dL (NEGATIVE); LEUKOCYTE ESTERASE, URINE NEGATIVE (NEGATIVE); NITRITE,URINE NEGATIVE (NEGATIVE); OCCULT BLOOD,URINE MODERATE (NEGATIVE); PH,URINE 7.5 PH (5.0-7.5); PROTEIN,URINE NEGATIVE (NEGATIVE); UROBILINOGEN,URINE 0.2 (NORMAL) E.U./dL (NORMAL)
[2023-01-12 19:00] LABS: CLARITY,URINE CLEAR (CLEAR)
--- NOTE | 2023-01-12 19:03 | CT Report ---
PROCEDURE: ABDOMEN/PELVIS W INDICATIONS: LLQ pain, eval for diverticulitis CONTRAST: 100mL Omni 300 TECHNIQUE: After the administration of intravenous contrast, 5 mm thick sections acquired from the diaphragms to the symphysis. 5 mm thick coronal and sagittal reformats were acquired. For radiation dose reducti on, the following was used: automated exposure control, adjustment of mA and/or kV according to aristides ent size. COMPARISON: CT abdomen and pelvis and MRCP 06/01/2022. FINDINGS: Image quality: Excellent. Lung bases and heart: Coronary artery calcifications. No pleural fusion. Liver: No focal lesion. Gallbladder and biliary tree: Absent gallbladder. Prominent intrahepatic bile ducts. Pneumobilia is p resent. Spleen: No splenomegaly. Pancreas: No pancreatic ductal dilation. Atrophic. Adrenals: No adrenal nodule. Kidneys and ureters: Mild left hydroureteronephrosis. There is a stone in the urinary bladder measuri ng 0.3 cm. Right kidney nonobstructing calculus measuring 0.3 cm x 2. No renal cystic lesion which re quires follow up. No solid mass. Bowel and peritoneum: No bowel distension. No pathologic free fluid. Diverticulosis. No diverticuliti s. The appendix is not identified. Lymph nodes: No central or retroperitoneal adenopathy. Vessels: No infrarenal aortic aneurysm. Mild to moderate calcified plaque. PELVIS Reproductive organs: Unremarkable. Bladder: No abnormal wall thickening, accounting for underdistention. Pelvic lymph nodes: No pelvic adenopathy by size criteria. Bones: No aggressive osseous abnormality. Bones appear osteopenic. Bridging vertebral body osteophyte s. Other: No significant ventral or inguinal hernia. IMPRESSION: 1. Mild left hydroureteronephrosis. Stone in the bladder measuring 0.3 cm likely passed through the l eft ureter. 2. Additional small nonobstructing right kidney stones. 3. Diverticulosis. No diverticulitis demonstrated. No free fluid. Reviewed by: Ralph Strong MD on 01/12/2023 7:02 PM PDT Approved by: Ralph Strong MD on 01/12/2023 7:02 PM PDT Station ID: [id number]
[2023-01-12 19:07] LABS: BACTERIA,URINE None Seen /HPF (None Seen); SQUAMOUS EPITHELIAL CELL,UR RARE Squamous (<= Few); WBC,URINE 0-3 /HPF (0-3)
[2023-01-12 19:12] VITALS: BP 168/80
[2023-01-12] MEDS ORDERED: HYDROcod/ACET 5/325 Prepack 4 PO STA (19:32)
[2023-01-12] MEDS ORDERED: ONDANSETRON ODT 4 MG Prepack 2 TL PRN (19:36)
[2023-01-12] MEDS ORDERED: KETOROLAC 30 MG/ML VIAL IVP STA (19:36)
== END 2023-01-12 19:55 | disposition home or self-care (01) ==
LOC: ED 16:45
DX: N13.2 Hydronephrosis with renal and ureteral calculous obstruction (principal); Z87.891 Personal history of nicotine dependence
CPT/HCPCS: 36415; 74177; 80053; 81001; 83690; 85025; 96374; 96375; 99284; 99285; J1170; Q9967; 81003; 87086

== ENCOUNTER 2023-02-19 04:29 | Emergency (ER) | payer MEDICARE, OTHER ==
[2023-02-19] MEDS ORDERED: TETRACAINE 0.5% OPHTH DROPS 4 ML RIGHTEYE ONE (04:46)
[2023-02-19 04:56] VITALS: BP 146/60
--- NOTE | 2023-02-19 05:13 | MISCELLANEOUS PROVIDER NOTE ---
Miscellaneous Provider Note - - Note: I assigned myself to the patient but he left prior to my evaluation. Therefore I did not have a chance to obtain a history or an exam. The patient's total time In the hospital was 15 minutes.
== END 2023-02-19 04:45 | disposition left against medical advice (07) ==
LOC: ED 04:29
DX: Z53.21 Procedure and treatment not carried out due to patient leaving prior to being seen by health care provider (principal)

== ENCOUNTER 2023-08-25 08:46 | Outpatient (CLI) | payer MEDICARE, OTHER ==
--- NOTE | 2023-08-25 10:51 | XRAY Report ---
PROCEDURE: Chest 2V INDICATIONS: SHORT OF BREATH, SINUSITIS TECHNIQUE: 2 views of the chest were acquired. COMPARISON: Chest X-ray, 12/08/2022 and 06/01/2022. FINDINGS: Surgical changes and devices: None. Lungs and pleura: No pleural effusions or pneumothorax. Left basilar scars and atelectasis. Lungs a re otherwise clear. Mediastinum: Mediastinal contours appear normal. Heart size is normal. Bones and chest wall: No suspicious bony lesions. Overlying soft tissues appear unremarkable. IMPRESSION: No acute cardiopulmonary process. Reviewed by: Frandy Clifton MD on 08/25/2023 10:50 AM [facility] Approved by: Frandy Clifton MD on 08/25/2023 10:50 AM PST Station ID: [id number]
--- NOTE | 2023-08-25 18:47 | CT Report ---
PROCEDURE: Sinus INDICATIONS: SHORT OF BREATH, SINUSITIS TECHNIQUE: Noncontrast 3.0 mm axial images acquired from the frontal sinuses to the mid-sella, with coronal and sagittal reformats. For radiation dose reduction, the following was used: automated exposure control , adjustment of mA and/or kV according to patient size. COMPARISON: None. FINDINGS: Image quality: Excellent. Maxillary Sinuses: No bony remodeling or destruction. No significant mucosal thickening can be seen. Ethmoid Air Cells: No bony remodeling or destruction. Sinuses are clear. Sphenoid Sinuses: No bony remodeling or destruction. Sinuses are clear. Frontal Sinuses: No bony remodeling or destruction. Sinuses are clear. Ostiomeatal Complexes: Ostiomeatal complexes are patent, yet they are highly constitutionally narrow ed. No Mary cells. Miscellaneous: Visualized intra-orbital contents are normal. No jose luis bullosa. There is moderate S shaped nasal septal deviation. IMPRESSION: No significant active paranasal sinus disease is seen. The ostiomeatal complexes are patent, yet they are highly constitutionally narrowed. There is moderate S-shaped nasal septal deviation. Reviewed by: Rolando Joe MD on 08/25/2023 5:46 PM [place] Approved by: Rolando Joe MD on 08/25/2023 5:46 PM [facility] Station ID: [id number]
== END 2023-08-25 08:47 | disposition home or self-care (01) ==
LOC: DI 08:46
PROVIDERS: ATTEND Student in an Organized Health Care Education/Training Program
DX: J34.2 Deviated nasal septum (principal); R06.02 Shortness of breath

== ENCOUNTER 2023-12-25 17:15 | Emergency (ER) | payer MEDICARE, OTHER ==
--- NOTE | 2023-12-25 18:40 | ED Physician Documentation ---
PD HPI LOWER EXT INJURY - Stated complaint Stated Complaint: RT FOOT INJ - Chief complaint Chief Complaint: Ext Problem - History obtained from History obtained from: Patient - Additional information Additional information: He has a history of diabetes. A couple weeks ago he kicked a table accidentally at home and injured his right fourth toe. Now it is more discolored and swollen and somewhat painful. No fevers or chills. PD PAST MEDICAL HISTORY - Past Medical History Past Medical History: Yes Cardiovascular: Coronary artery disease, [place] Respiratory: None Neuro: Peripheral neuropathy Endocrine/Autoimmune: Type 2 diabetes GI: GERD, Diverticulitis : Benign prostate hypertrophy HEENT: None Psych: None Musculoskeletal: Osteoarthritis, Chronic back pain Derm: None - Past Surgical History Past Surgical History: Yes General: Cholecystectomy, Bowel surgery Cardiovascular: Coronary stent - Present Medications Home Medications: Ambulatory Orders Medication Instructions Recorded Confirmed Metoprolol Tartrate [Lopressor] 25 mg PO BID 11/23/13 02/19/23 Metformin HCl [Glucophage] 500 mg PO BIDWM 10/30/20 02/19/23 Clopidogrel [Plavix] 75 mg PO DAILY 03/20/21 02/19/23 Aspirin EC [Ecotrin] 325 mg PO BID 03/22/21 02/19/23 Tamsulosin [Flomax] 0.4 mg PO DAILY 03/22/21 02/19/23 Losartan [Cozaar] 100 mg PO DAILY 12/08/22 02/19/23 amLODIPine [Norvasc] 5 mg PO DAILY 12/08/22 02/19/23 Ciprofloxacin HCl [Cipro] 500 mg PO BID #28 tablet 12/25/23 - Allergies Allergies/Adverse Reactions: Allergies Allergy/AdvReac Type Severity Reaction Status Date / Time amoxicillin trihydrate * AdvReac Nausea Verified 12/25/23 17:25 [From Augmentin] potassium clavulanate * AdvReac Nausea Verified 12/25/23 17:25 [From Augmentin] - Social History Does the pt smoke?: Yes Smoking Status: Current every day smoker Does the pt drink ETOH?: Yes Does the pt have substance abuse?: No - Immunizations Immunizations are current?: No Immunizations: TDAP >10years/unknown - POLST Patient has POLST: No POLST Status: Full Code PD ED PE NORMAL - Vitals Vital signs reviewed: Yes - General General: Alert and oriented X 3, No acute distress - Extremities Extremities: Other (The right fourth toe is discolored and cellulitic with just a little bit of purulent drainage at the tip. No cellulitis proximal to the MTP.) - Neuro Neuro: Alert and oriented X 3 Results - Vitals Vitals: Vital Signs - 24 hr 12/25/23 12/25/23 17:25 20:09 Temperature 36.8 C 36.6 C Heart Rate 75 72 Respiratory 16 16 Rate Blood Pressure 114/70 112/68 O2 Saturation 97 98 Oxygen O2 Source Room air - Labs Labs: Microbiology 12/25/23 19:05 Wound Culture - Preliminary Toe - Left Second - Rads (name of study) R toe neg Relevant Findings:: Final report received, EMP independent interpretation of test PD Medical Decision Making - ED course ED course: 83-year-old gentleman with diabetes and active tobacco use presents with what looks like a toe infection of the right fourth toe. There was trauma involved relevant x-rays were negative. He is placed on antibiotics and a culture was obtained. Note he "does not want anything to do with Augmentin." Given close return and follow-up precautions. While the cellulitis does not go up the foot, the fourth toe is pretty angry and he may need a referral for wound care eventually. Departure - Departure Disposition: 01 Home, Self Care Clinical Impression: Diabetes mellitus, Toe infection Condition: Good Record reviewed to determine appropriate education?: Yes Instructions: Diabetes Treat Minor Foot Infecs, ED Foot Care Diabetic Prescriptions: Ciprofloxacin HCl [Cipro] 500 mg PO BID #28 tablet Comments: There is no evidence of fracture of the toe but it does look like there is an infection there. We have collected a wound culture and started you on antibiotics. We are performing a wound culture, the results should be done in 48-72 hours. If antibiotic change is necessary we will call you. Return if worse in the meantime, especially if you develop increased pain, fevers, cannot keep down the medication. Otherwise follow-up with your physician in approximately 2-3 days. Forms: PCP List Discharge Date/Time: 12/25/23 20:08
[2023-12-25] MEDS: CIPROFLOXACIN 250 MG TABLET PO STA (18:58)
--- NOTE | 2023-12-25 19:38 | XRAY Report ---
PROCEDURE: Toe(s) 2+V RT INDICATIONS: toe inj/infection TECHNIQUE: 3 views of the fourth toe(s) acquired. COMPARISON: Right foot radiographs 10/29/2020. FINDINGS: Bones: No fractures or dislocations. No erosion identified. No suspicious bony lesions. Soft tissues: No suspicious soft tissue densities. IMPRESSION: No osseous erosion identified. Consider follow-up MRI or three-phase bone scan and/or radiographs. Reviewed by: Ralph Strong MD on 12/25/2023 7:36 PM PDT Approved by: Ralph Strong MD on 12/25/2023 7:36 PM PDT Station ID: [id number]
[2023-12-25 20:17] VITALS: BP 112/68; O2SAT 98
== END 2023-12-25 20:08 | disposition home or self-care (01) ==
LOC: ED 17:15
DX: L03.031 Cellulitis of right toe (principal); W22.09XA Striking against other stationary object, initial encounter; E11.9 Type 2 diabetes mellitus without complications; F17.200 Nicotine dependence, unspecified, uncomplicated; Z79.84 Long term (current) use of oral hypoglycemic drugs; Z88.0 Allergy status to penicillin
CPT/HCPCS: 73660; 87070; 87205; 99283; 99284; A9270